=== PATIENT | female | born 1940 | race Caucasian/White ===

== ENCOUNTER → 2018-11-05 09:50 | Outpatient (CLI) | payer MEDICARE, SELFPAY ==
[2017-04-30 08:05] VITALS: BMI 23.0
[2018-11-05 12:01] LABS: Anion Gap 12 (5-15); BUN 17 mg/dL (7-18); Calcium,Total 9.2 mg/dL (8.5-10.1); Chloride 100 mmol/L (98-107); Cholesterol 234 mg/dL (200); Creatinine, Serum 0.89 mg/dL (0.55-1.02); EST Glomerular Filtration Rate 65 mL/min (>60); Est Glom Filt Rate - Afr Amer 78 mL/min (>60); Glucose 169 mg/dL (74-106); High Density Lipoprotein 101 mg/dL; Potassium 4.3 mmol/L (3.5-5.1); Sodium Level 135 mmol/L (136-145); Triglycerides 142 mg/dL; Very Low Density Lipoprotein 28 mg/dL (5-40)
[2018-11-05 12:04] LABS: Microalbumin,Random Urine 8.3 mg/L (NO RANGE EST.); Microalbumin:Creatinine Ratio 47.7 mg/g CRE (<30 mg/g CRE)
[2018-11-05 12:06] LABS: Hemoglobin A1c 6.9 % (4.2-6.3)
[2018-11-05 12:09] LABS: Vitamin D,25 Hydroxy 45.6 ng/mL (29.95-100.01)
== END ==
PROVIDERS: Family Provider Family Medicine; PCP Family Medicine; Visit Provider Family Medicine
DX: E11.9 Type 2 diabetes mellitus without complications (principal); E55.9 Vitamin D deficiency, unspecified
CPT/HCPCS: 36415; 80048; 80061; 82043; 82306; 82570; 83036

== ENCOUNTER → 2019-01-20 09:05 | Outpatient (CLI) | payer MEDICARE, SELFPAY ==
--- NOTE | 2019-01-20 09:11 | BD_ITS ---
STUDY: DUAL ENERGY X-RAY ABSORPTIOMETRY / DXA REASON FOR EXAM: Female, 78 years old. The patient is postmenopausal. No loss of height. TECHNIQUE: Bone Mineral Density (BMD) measurements of lumbar spine and bilateral hips were obtained. COMPARISON: Comparison is made with prior study dated September 08, 2017. FINDINGS: Lumbar Spine (L1-L4): g/cm2 (1.065) / T-score (-1.1) / Z-score (0.7) Findings are suggestive of osteopenia with a low fracture risk. Left Femur Total: g/cm2 (0.781) / T-score (-1.8) / Z-score (0.2) Left Femoral Neck: g/cm2 (0.782) / T-score (-1.8) / Z-score (0.3) Right Femur Total: g/cm2 (0.817) / T-score (-1.5) / Z-score (0.5) Right Femoral Neck: g/cm2 (0.802) / T-score (-1.7) / Z-score (0.4) The T-Scores on the most recent prior examination were: Lumbar Spine (L1-L4): There has been improvement of bone density since the previous examination. Left Femur Total: which represents a worsening of 3.8%. Right Femur Total: which represents a worsening of 0.6%. BD/Dexa Bone Density Study IMPRESSION: The patient is considered osteopenic as outlined below according to World Shawn Organization (WHO) criteria with a moderate fracture risk. There has been worsening of bone density since the previous examination. Reference Information: The T-score is the number of standard deviations above or below the standard which is normal for young adults at their peak bone mineral density. The World Health Organization (WHO) interprets the T-scores as follows: Above -1 Normal bone density Between -1 and -2.5 Osteopenia Equal to / or below -2.5 Osteoporosis As a practical clinical guideline, osteopenia may be graded as follows: Mild -1 through -1.5 Moderate -1.6 through -2.0 Severe -2.1 through -2.4 The Z-score is the number of standard deviations above or below age-matched controls. A Z-score of less than -1.5 would be considered abnormal. References: 1. NIH Osteoporosis and Related Bone Diseases http://www.osteo.org 2. International Society for Clinical Densitometry http://www.iscd.org 3. National Osteoporosis Foundation http://www.nof.org Electronically Signed: Patricio Quarles, at 15:19 EDT , Service support ,
== END ==
PROVIDERS: Family Provider Family Medicine; PCP Family Medicine; Referring Provider Family Medicine; Visit Provider Family Medicine
DX: Z78.0 Asymptomatic menopausal state (principal)
CPT/HCPCS: 77080

== ENCOUNTER → 2019-05-19 10:31 | Outpatient (CLI) | payer MEDICARE, SELFPAY ==
--- NOTE | 2019-05-19 10:33 | BI_ITS ---
MAMMOGRAPHY - BILATERAL SCREENING REASON FOR EXAM: Female, 78 years old. Routine annual screening examination. PERTINENT HISTORY: Non-contributory. History of prior left excisional breast biopsy and right stereotactic breast biopsy. TECHNIQUE: Digital bilateral breast catie (3D mammographic acquisition) in the CC and MLO projections. 2-D mediolateral oblique (MLO) and craniocaudad (CC) views of both breasts were obtained. CAD: Full Field Digital Mammography with Computer Added Detection was performed. COMPARISON: Comparison is made with prior examination dated September 08, 2017 and September 04, 2016. FINDINGS: Breast Composition: The breasts are heterogeneously dense, which may obscure small masses. There are no dominant masses or suspicious calcifications. A tissue clip marker is once again seen in the upper deep lateral aspect of the left breast. No other significant abnormalities are identified. There has been no significant change since the prior study. BI/SCREEN MAMM (CAD) W/CATIE BILAT IMPRESSION: Stable bilateral screening mammogram. Yearly follow-up mammogram recommended. (A) ASSESSMENT CATEGORY: BIRADS Category 2: Benign. A letter regarding these results will be sent to the patient by the facility within 30 days. Approximately 10% of breast cancers are not detected by mammography. A normal mammogram should not delay biopsy of a clinically suspicious abnormality. [id number] Electronically Signed: Patricio Quarles, at 13:20 EDT , Service support ,
== END ==
PROVIDERS: Family Provider Family Medicine; PCP Family Medicine; Referring Provider Family Medicine; Visit Provider Family Medicine
DX: Z12.31 Encounter for screening mammogram for malignant neoplasm of breast (principal)
CPT/HCPCS: 77063; 77067

== ENCOUNTER → 2019-11-08 08:11 | Outpatient (CLI) | payer MEDICARE, SELFPAY ==
[2017-04-30 08:05] VITALS: BMI 23.0
[2019-11-08 10:20] LABS: Anion Gap 6 (5-15); BUN 18 mg/dL (7-18); BUN/Creat Ratio 20.9 RATIO (10-20); Calcium,Total 9.3 mg/dL (8.5-10.1); Chloride 104 mmol/L (98-107); Cholesterol 230 mg/dL (200); Creatinine, Serum 0.86 mg/dL (0.55-1.02); EST Glomerular Filtration Rate 67 mL/min (>60); Est Glom Filt Rate - Afr Amer 81 mL/min (>60); Glucose 144 mg/dL (74-106); High Density Lipoprotein 98 mg/dL; Potassium 4.1 mmol/L (3.5-5.1); Sodium Level 139 mmol/L (136-145); Triglycerides 96 mg/dL; Very Low Density Lipoprotein 19 mg/dL (5-40)
== END ==
PROVIDERS: PCP Family Medicine; Visit Provider Family Medicine
DX: E11.9 Type 2 diabetes mellitus without complications (principal)
CPT/HCPCS: 36415; 80048; 80061

== ENCOUNTER 2019-11-14 18:29 | Emergency (ER) | payer MEDICARE, SELFPAY ==
[2019-11-14 18:30] VITALS: BP 120/53; PULSE 113; RESP 20; TEMP 39.6; O2SAT 95; BMI 23.8
--- NOTE | 2019-11-14 19:12 | ED.VISSUMM ---
- ER Visit Summary Date of Service: 11/14/19 Chief Complaint: Fever and chills with nausea and vomiting History of Present Illness: The patient is a 79 F past medical history noncemented diabetes and hypertension. Patient states for last 2 days she has had fever and chills along with nausea vomiting. No diarrhea. No dysuria. Abdominal pain. No chest pain. No cough. No shortness of breath. No sore throat. No headache. No rashes. Physical Examination: Older female no acute distress vital signs stable her temperature is 103.2. Heart rate 113. Blood pressure stable of 130/53. She does not look septic or toxic. She does not look significantly dehydrated. H EENT exam unremarkable. Give dry reactive light. Moist with membranes. Posterior pharynx normal. TMs normal. Neck nontender no meningismus. No lymphadenopathy. Lungs clear to auscultation bilaterally. Heart tachycardic no murmur. Abdomen soft and nontender normal bowel sounds no peritoneal signs. Extremities moves all 4. Calves nontender no edema no cords. Skin unremarkable. No rashes. No petechiae purpura. Back nontender. Neurologically she is awake alert with no focal motor or sensory deficits. Test Results: X-ray AP lateral view shows no acute abnormality. Both myself and the radiologist. No infiltrate. CBC shows a white count 2.9. H&H 12 and 34. Platelet count 136,000. No bands. Electrolytes sodium 131. Gap of 9. Glucose 193. BUN 28 creatinine 1.47 consistent with mild dehydration. Attempted to get a UA twice and both samples were contaminated with diarrhea. Patient started having diarrhea while in the emergency department. Emergency Department Course and Treatment: Older female with fever clinically I think this is a viral syndrome. Due to her age she will undergo a work-up. She will receive IV fluids. Tylenol and Zofran. P.o. fluid challenge. On repeat exam at 2150 patient is doing well. Abdomen is benign. Her history and exam are consistent with a viral gastroenteritis. She and her are comfortable with her being discharged to home. Treatment Plan: Plenty of fluids and rest. Zofran as needed for nausea. Return if feeling worse or dehydrated. Follow-up with your doctor to ensure she is improving. Disposition: Discharge Impression: Acute nausea and vomiting with fever secondary to viral syndrome entheses viral gastroenteritis) This note was generated with [employer] software. It may contain incorrect words, spelling, and punctuation that were not noted in review of the chart prior to signing ED Disposition - Plan for ED Patient: Referrals: Wilfred Prado MD [Primary Care Provider] -
[2019-11-14 19:43] LABS: Absolute Lymphocyte Count 0.17 X10^3/uL (0.83-4.51); Absolute Neutrophil Count 2.1 X10^3/uL (2.0-7.7); Basophil# 0.01 X10^3/uL; Basophil% 0.3 % (0-1); Eosinophil# 0.51 X10^3/uL; Eosinophils% 17.7 % (0-5); Hematocrit 34.6 % (37-47); Lymphocyte # 0.17 X10^3/ul (4.0); Lymphocyte % 5.9 % (19-41); Mean Corp Hgb Conc 34.7 g/dL (32-36); Mean Corpuscular Hgb 31.6 pg (27.0-32.0); Mean Corpuscular Volume 91.1 fL (81-99); Mean Platelet Vol. 11.3 fl (6.2-12.0); Monocyte# 0.04 X10^3/uL; Monocyte% 1.4 % (0-10); NRBC Flagged by Analyzer 0 % (0-5); Neutrophil # 2.14 X10^3/uL (2.7-7.7); Neutrophil % 74.4 % (47-70); POSITIVE DIFFERENTIAL YES; POSITIVE MORPHOLOGY YES; Platelet Count 136 K/mm3 (150-450); RBC Distribution Width CV 12.8 % (11.6-14.6); RBC Distribution Width SD 42.2 fl (35.1-43.9); White Blood Count 2.9 K/mm3 (4.4-11.0)
[2019-11-14 19:46] LABS: Differential Indicated SCAN CRITERIA MET
[2019-11-14 19:51] LABS: Anion Gap 9 (5-15); BUN 28 mg/dL (7-18); Calcium,Total 9.1 mg/dL (8.5-10.1); Chloride 98 mmol/L (98-107); Creatinine, Serum 1.47 mg/dL (0.55-1.02); EST Glomerular Filtration Rate 36 mL/min (>60); Est Glom Filt Rate - Afr Amer 44 mL/min (>60); Estimated Creatinine Clearance 24.14 ml/min; Glucose 193 mg/dL (74-106); Potassium 3.8 mmol/L (3.5-5.1); Sodium Level 131 mmol/L (136-145)
[2019-11-14] MEDS: 0.9% Normal Saline 1,000 ML 1000 ML IV (20:00)
[2019-11-14] MEDS: Ondansetron 4 MG/2 ML Vial IV (20:01)
[2019-11-14] MEDS: Acetaminophen 500 MG Tablet 1000 MG PO (20:01)
--- NOTE | 2019-11-14 20:08 | RAD_ITS ---
STUDY: X-RAY CHEST REASON FOR EXAM: Female, 79 years old. FEVER AND CHILLS WITH N/V BEGINNING TODAY TECHNIQUE: PA and lateral COMPARISON: None. FINDINGS: There is minor interstitial thickening at the right lung base.. Small calcified granuloma in left upper lobe. There is no demonstrated pleural abnormality. Normal size heart. Normal mediastinum and vee. Normal visualized pulmonary arteries. Normal visualized aortic arch and descending thoracic aorta. Normal visualized thoracic spine. Normal visualized ribs, clavicles, and shoulders. There is no demonstrated abnormality of the visualized soft tissue structures of the upper abdomen. RAD/Chest PA and Lateral IMPRESSION: No acute cardiopulmonary pathology Electronically Signed: Caleb Merino MD at 20:48 EST , Service support ,
[2019-11-14 20:18] LABS: Differential Comment SCANNED
[2019-11-14 20:33] VITALS: BP 94/52; PULSE 92; RESP 18; TEMP 37.4; O2SAT 92
[2019-11-14 21:00] VITALS: BP 94/52; PULSE 92; RESP 18; TEMP 37.4; O2SAT 92
--- NOTE | 2019-11-14 22:05 | ED.DEP ---
ED Disposition - Plan for ED Patient: Disposition: Home or Assisted Living Instructions: GASTROENTERITIS, Viral (6y-Adult) Prescriptions: Ondansetron [Zofran Odt] 4 mg PO Q8H PRN PRN #7 tab PRN Reason: Nausea Prescription Printed Referrals: Wilfred Prado MD [Primary Care Provider] - 3-5 Days if not improving Additional Instructions: Plenty of fluids and rest. Very important to keep yourself hydrated. You are feeling worse or more dehydrated return to the ER. Zofran as needed for nausea. Follow-up with your doctor if not improving.
[2019-11-14 22:20] VITALS: BP 98/42; PULSE 90; RESP 18; O2SAT 96
[2019-11-15 14:41] LABS: Pathologist Review Reviewed
== END 2019-11-14 22:21 | disposition home or self-care (01) ==
PROVIDERS: Emergency Provider Emergency Medicine; PCP Family Medicine
DX: A08.4 Viral intestinal infection, unspecified (principal); E11.9 Type 2 diabetes mellitus without complications; I10 Essential (primary) hypertension
CPT/HCPCS: 71046; 80048; 85025; 99284; J2405

== ENCOUNTER 2019-11-17 19:38 | Inpatient (IN) | payer MEDICARE, SELFPAY ==
[2019-11-17 19:38] VITALS: BP 137/57; PULSE 99; RESP 16; TEMP 37.9; O2SAT 96; BMI 25.6
[2019-11-17 20:59] VITALS: BP 127/51; PULSE 83; RESP 15; TEMP 37.6; O2SAT 98
[2019-11-17 21:06] VITALS: RESP 15; O2SAT 88
--- NOTE | 2019-11-17 21:15 | EKG12_ITS ---
Test Reason : FEVER Blood Pressure : / mmHG Vent. Rate : 079 BPM Atrial Rate : 079 BPM P-R Int : 156 ms QRS Dur : 096 ms QT Int : 356 ms P-R-T Axes : 066 013 065 degrees QTc Int : 408 ms Normal sinus rhythm Normal ECG Confirmed by ANNEL ELDER, JORDANA ([id number]), manuscript editor PAMELA KELSEY ([id number]) on 11/21/2019 9:53:50 AM Referred By: KELLY Confirmed By:JORDANA UP MD
--- NOTE | 2019-11-17 21:20 | RAD_ITS ---
STUDY: X-RAY CHEST REASON FOR EXAM: Female, 79 years old. FEVER STARTING TONIGHT AT DINNER. PT WAS SEEN ON THURSDAY FOR and quot;STOMACH VIRUS and quot; STATES WAS FEELING BETTER AND CHILLS STARTED AGAIN TONIGHT TECHNIQUE: AP portable COMPARISON: November 14, 2019 FINDINGS: The lungs are clear and expanded. There is mild blunting of the right cost phrenic sulcus suspicious for tiny effusion.. Normal size heart. Normal mediastinum and vee. Normal visualized pulmonary arteries. Normal visualized aortic arch and descending thoracic aorta. Normal visualized thoracic spine. Normal visualized ribs, clavicles, and shoulders. There is no demonstrated abnormality of the visualized soft tissue structures of the upper abdomen. The blunting of the costophrenic angle is a new finding since our study. RAD/Chest 1 View (Portable) IMPRESSION: New tiny right pleural effusion since prior exam. No other significant abnormalities. Electronically Signed: Caleb Merino MD at 21:38 EST , Service support ,
[2019-11-17 21:37] LABS: Absolute Lymphocyte Count 0.53 X10^3/uL (0.83-4.51); Basophil# 0.07 X10^3/uL; Basophil% 0.5 % (0-1); Eosinophil# 0.01 X10^3/uL; Eosinophils% 0.1 % (0-5); Hematocrit 33.7 % (37-47); Hemoglobin 11.6 g/dL (12.0-15.0); Lymphocyte # 0.53 X10^3/ul (4.0); Lymphocyte % 3.9 % (19-41); Mean Corp Hgb Conc 34.4 g/dL (32-36); Mean Corpuscular Hgb 31.3 pg (27.0-32.0); Mean Corpuscular Volume 90.8 fL (81-99); Mean Platelet Vol. 10.4 fl (6.2-12.0); Monocyte# 1.73 X10^3/uL; Monocyte% 12.6 % (0-10); NRBC Flagged by Analyzer 0 % (0-5); Neutrophil # 11.04 X10^3/uL (2.7-7.7); Neutrophil % 80.6 % (47-70); POSITIVE DIFFERENTIAL YES; POSITIVE MORPHOLOGY YES; Platelet Count 190 K/mm3 (150-450); RBC Distribution Width CV 13.1 % (11.6-14.6); RBC Distribution Width SD 43.4 fl (35.1-43.9); Red Blood Count 3.71 M/mm3 (4.2-5.4); White Blood Count 13.7 K/mm3 (4.4-11.0)
[2019-11-17 21:50] LABS: Differential Indicated SCAN CRITERIA MET
[2019-11-17 21:59] LABS: ALB/GLOB Ratio 0.7 RATIO (0.9-2.4); AST(SGOT) 20 U/L (15-37); Alanine Aminotransfer ALT/SGPT 45 U/L (13-56); Albumin, Serum 2.6 g/dL (3.2-5.0); Alkaline Phosphatase 102 U/L (45-117); Anion Gap 7 (5-15); BUN 22 mg/dL (7-18); BUN/Creat Ratio 17.9 RATIO (10-20); Calcium,Total 8.8 mg/dL (8.5-10.1); Chloride 98 mmol/L (98-107); Creatinine, Serum 1.23 mg/dL (0.55-1.02); EST Glomerular Filtration Rate 45 mL/min (>60); Est Glom Filt Rate - Afr Amer 54 mL/min (>60); Estimated Creatinine Clearance 28.85 ml/min; Globulin 3.5 g/dL (2.2-4.2); Glucose 178 mg/dL (74-106); Potassium 3.9 mmol/L (3.5-5.1); Protein, Total 6.1 g/dL (6.4-8.2); Sodium Level 133 mmol/L (136-145)
[2019-11-17 22:10] LABS: Differential Comment SCANNED
[2019-11-17 22:11] LABS: Mucous, Urine 0 SEEN /hpf (<or=2+)
[2019-11-17] MEDS: Acetaminophen 500 MG Tablet 1000 MG PO (22:11)
[2019-11-17 22:14] LABS: Color, Urine Yellow (Yellow); Glucose, Dipstick Normal (Normal); Ketone-Dipstick 5 mg/dl (Negative); Leukocyte Esterase-Dipstick 500 /ul (Negative); Nitrite-Dipstick Positive (Negative); Occult Blood-Urine 150 /ul (Negative); Protein-Dipstick 100 mg/dl (Negative); Urine Bilirubin Dipstick Negative (Negative); Urine Clarity Cloudy (Clear); Urine Urobilinogen Normal (Normal)
[2019-11-17 22:20] LABS: Amorphous Sediment 1+ URATE; Bacteria 1+ /hpf (None Seen); Red Blood Cells-Urine 10-25 SEEN /hpf (0-5); Squamous Epithelial Cells - UA 0-5 SEEN /hpf (5-10); White Blood Cells >100 SEEN /hpf (0-5)
[2019-11-17 22:40] VITALS: BP 110/58; PULSE 74; RESP 16; TEMP 36.9; O2SAT 99
[2019-11-17 23:30] VITALS: BP 110/58; PULSE 74; PULSE 75; RESP 15; TEMP 37; O2SAT 98
--- NOTE | 2019-11-17 23:31 | CT_ITS ---
STUDY: CTA CHEST REASON FOR EXAM: Female, 79 years old. SHORTNESS OF BREATH, FEVER, LOW O2 SATS. RADIATION DOSAGE (If Supplied By Facility): CTDIvol = ( 8.98 ) mGy, DLP = ( 350.25 ) mGycm TECHNIQUE: The examination was performed with the intravenous administration of IV 100mL Isovue-370. Post-processing of the angiographic images was performed, with multiplanar reformation and 3D reconstruction. Individualized dose optimization techniques were used for this CT. COMPARISON: None. FINDINGS: TRACHEA, THYROID, ESOPHAGUS: No tracheomalacia,stricture or wall thickening. Thyroid and esophagus are normal CARDIOVASCULAR SYSTEM: The thoracic aorta is normal with no focal aneurysm or dissection. There are no abnormal calcifications/metallic densities at the aortic root. The pulmonary trunk and the left and right pulmonary arteries and their lobar and segmental branches all fail to show any abnormal and persistent filling defects to indicate the presence of pulmonary embolism. The heart is normal in size with no demonstration of any right ventricular strain. No developmental vascular anomalies are seen. ROXY AND LYMPH NODES: No hilar masses and no mediastinal, hilar, axillary or supraclavicular adenopathy LUNGS, LOW-ATTENUATION: No traction bronchiectasis, honeycombing,emphysema, lung cysts or cavitations LUNGS, HIGH ATTENUATION: Right lower lobe consolidation. Pneumonia suspected. Platelike atelectatic changes in the left base. LUNGS, MOSAIC/CRAZY PAVING: Not evident PLEURA AND CHEST WALL: No pneumothoraces,rib fractures or any osteolytic/osteoblastic changes . A small right-sided pleural effusion The soft tissue chest wall including the breasts are normal UPPER ABDOMEN: A 5.7 cm left renal cyst. CT/CTA Chest W/WO Contrast IMPRESSION: Normal CTA chest examination, without a demonstrated pulmonary embolism or arterial dissection. A right lower lobe consolidation consistent with pneumonia. There is a small sympathetic right-sided pleural effusion. Platelike atelectatic changes in the left base. A 5.7 cm left renal cyst Electronically Signed: Olman Zayas MD at 2:49 EST Tel , Service support ,
--- NOTE | 2019-11-17 23:33 | ED.VISSUMM ---
- ER Visit Summary Date of Service: 11/17/19 Chief Complaint: Fever History of Present Illness: The patient is a 79 F presenting with fever and chills. She states her symptoms started on Thursday. She was seen in the ED at that time. She had a work-up and was sent home. States she started to feel improved and then started to worsen again today. She has had temperature up to 103 at home. She complains of chills. She had rhinorrhea. She has had shortness of breath. She denies cough. Denies chest pain. Denies abdominal pain, nausea, vomiting, diarrhea. She does have constipation but did have a bowel movement today. She complains of generalized fatigue and weakness. Physical Examination: Vitals are stable. Temperature 100.3. Alert no acute distress. 88% on room air HEENT exam is unremarkable. Neck is supple. Lungs are diminished bilaterally. Heart is regular rate and rhythm. Abdomen is soft nontender nondistended. Extremities are unremarkable. Skin is warm and dry. No focal neurologic deficit. Remainder of exam is unremarkable. Emergency Department Course and Treatment: EKG is sinus rhythm rate of 79 with no acute ischemic changes. Chest x-ray shows tiny right pleural effusion. CBC shows white count 13.7, hemoglobin 11.6. Chemistries show glucose 178, BUN 22, creatinine 1.23. Urinalysis shows over 100 white blood cells. Urine culture was sent. Influenza negative. She was given IV fluids, Tylenol, Rocephin. Her pulse ox is 88% on room air when taken off oxygen. She does not have home O2. Discussed with the hospitalist for admission. CTA chest was requested and is pending at this time. Disposition: Admission Impression: UTI, hypoxia This note was generated with [employer] dictation software. It may contain incorrect words, spelling, and punctuation that were not noted in review of the chart prior to signing ED Disposition - Plan for ED Patient: Referrals: Wilfred Prado MD [Primary Care Provider] -
[2019-11-17] MEDS: Ceftriaxone 1 GM/50 ML BAG IV (23:41)
[2019-11-17 23:42] VITALS: BP 114/57; PULSE 76; RESP 16; TEMP 37; O2SAT 97
[2019-11-17 23:59] LABS: BNP,B-Type NATRIURETIC PEPTIDE 303.9 pg/mL (0-100)
--- NOTE | 2019-11-18 00:19 | HP.PCM_ITS ---
History of Present Illness Date of Admission: 11/18/19 Chief Complaint: fever The patient is a 79 year old F with a PMH as outlined. She was admitted via the ED on 11/17/2019 with a complaint of fever. She was seen in the ED 3 days prior to admission when she presented with similar complaint of fever. She says she started improving. Work-up done then was negative. However a temperature went up to 103 at home on day of admission with associated chills. She says she had been feeling more short of breath since she went home from the hospital 3 days prior to admission she denied any cough or chest pain, palpitations or dizziness, nausea vomiting or diarrhea and denied any swelling in her lower extremities. He denies any recent long distance travel. On admission in the ED, vitals were essentially stable but she was initially saturating at 88% on room air and required 2 L of oxygen to maintain saturation at 97%. Chemistry showed sodium of 133 with creatinine of 1.23. BNP was 303.9. CBC showed WBC of 13.7 with hemoglobin of 11.6. Chest x-ray showed new tiny right pleural effusion since prior exam with no other significant abnormalities. Initial troponin was negative and EKG showed no acute ST changes. Urinalysis showed evidence of UTI . Chest CTA was ordered and pending at time of admission. She has been admitted to be managed for UTI. [] Past Medical History Allergies No Known Allergies Allergy (Verified 11/17/19 19:40) Home Medications: Ambulatory Orders Medication Instructions Recorded Diclofenac Sodium [Voltaren] 1 oint TOPICAL PRN PRN 04/18/14 Metformin HCl [Metformin HCl ER] 500 mg PO DAILY 04/18/14 Moexipril/Hydrochlorothiazide 1 tab PO DAILY 04/18/14 [Moexipril-Hctz 15-12.5 mg Tab] Amlodipine [Norvasc] 10 mg PO DAILY 04/30/17 Ezetimibe [Zetia] 10 mg PO QHS 04/30/17 Calcium Carbonate/Vitamin D3 1 ea PO DAILY 11/14/19 [Calcium 500-Vit D3 600 Caplet] Cholecalciferol (VIT D3) [Vitamin 1,000 unit PO DAILY 11/14/19 D] Flaxseed Oil [Flax Oil] 1,000 mg PO DAILY 11/14/19 Ondansetron [Zofran Odt] 4 mg PO Q8H PRN PRN #7 tab 11/14/19 Surgical History: no surgical history Psychiatric History: No pertinent psych hx 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 Denies: Weight Change Eyes: Denies: Blurred vision HEENT: Denies: Head Aches, Sinus Congestion, Sinus Drainage Cardiovascular: Denies: Chest Pain, Palpitations Respiratory: Reports: Shortness of Breath, Shortness of breath at rest, Shortness of breath upon exertion. Denies: Cough, Sputum production Gastrointestinal: Denies: Abdominal Pain, Nausea, Vomiting Genitourinary: Denies: Dysuria Musculoskeletal: Denies: Joint Pain, Joint Tenderness Skin: Denies: Rash, Wounds Neurological: Denies: Numbness, Tingling, Focal weakness Psychiatric: Denies: Anxiety, Depression, Homicidal Ideations, Suicidal Ideations Hematologic/ Lymphatic: Denies: Easy Bruising, Easy Bleeding VTE Information - Inpt Only VTE Present on Admission: No VTE Pharm Prophylaxis ordered?: Yes - Physical Exam Vitals/I&O's: Vital Signs Temp Pulse Resp BP Pulse Ox 98.6 F 76 16 114/57 L 97 11/17/19 23:42 11/17/19 23:42 11/17/19 23:42 11/17/19 23:42 11/17/19 23:42 Oxygen Delivery Method Room Air Weight: 140 lb Body Mass Index (BMI) 25.6 Intake and Output for Last 24 Hours 11/16/19 11/17/19 11/18/19 23:59 23:59 23:59 Intake Total 500 / 500 Balance 500 / 500 General: Alert, Oriented x3, Cooperative, No apparent distress HEENT: Atraumatic, PERRLA, EOMI, Normocephalic Oral: Dry Mucosa Neck: Supple, No JVD, Negative Carotid Bruits Lungs: Clear to auscultation, Normal air movement, No rhonchi, No wheeze, No rales Cardiovascular: Regular rate, Regular Rhythm, Normal S1, Normal S2, No murmurs Abdomen: Bowel Sounds Present, Soft, Non Tender, Non-Distended, No Hepato- splenomegaly Extremities: No clubbing, No cyanosis, No edema, Capillary Refill Less than 3 Seconds Skin: No rashes, No breakdown Musculoskeletal: No Tenderness to Palpation of Joints or Extremities Lymphatic: No Cervical, Supraclavicular, or Inguinal Adenopathy Neurological: Cranial nerves II-XII grossly intact, Neuro grossly intact, Motor Exam 5/5 strength throughout Psych/Mental Status: Normal Affect, Appropriate, Alert and oriented to time, place, person, mood and affect Microbiology Past 72 Hours 11/17/19 21:44 Mucosa - Nose Influenza Types A,B Direct FA (SUSAN) - Final Laboratory Results 11/17/19 21:30: WBC 13.7 H, RBC 3.71 L, Hgb 11.6 L, Hct 33.7 L, MCV 90.8, MCH 31.3, MCHC 34.4, RDW Std Deviation 43.4, RDW Coeff of Santana 13.1, Plt Count 190, MPV 10.4, Immature Gran % (Auto) 2.300 H, Neut % (Auto) 80.6 H, Lymph % (Auto) 3.9 L, [place] % (Auto) 12.6 H, Eos % (Auto) 0.1, Baso % (Auto) 0.5, Absolute Neuts (auto) 11.0 H, Absolute Lymphs (auto) 0.53 L, Nucleated RBC % 0, Differential Comment SCANNED, Diff Path Review January11/17/19 21:30: Sodium 133 L, Potassium 3.9, Chloride 98, Carbon Dioxide 28.0, Anion Gap 7, BUN 22 H, Creatinine 1.23 H, Estim Creat Clear Calc 28.85, Est GFR (MDRD) Af Amer 54 L, Est GFR (MDRD) Non-Af 45 L, BUN/Creatinine Ratio 17.9, Glucose 178 H, Calcium 8.8, Total Bilirubin 0.30, AST 20, ALT 45, Alkaline Phosphatase 102, Total Protein 6.1 L, Albumin 2.6 L, Globulin 3.5, Albumin/Globulin Ratio 0.7 L 11/17/19 21:30: B-Natriuretic Peptide 303.9 H 11/17/19 22:07: Urine Color Yellow, Urine Clarity Cloudy, Urine pH 5.0, Ur Specific Mineral 1.010, Urine Protein 100 H, Urine Glucose (UA) Normal, Urine Ketones 5 H, Urine Occult Blood 150 H, Urine Nitrite Positive H, Urine Bilirubin Negative, Urine Urobilinogen Normal, Ur Leukocyte Esterase 500 H, Urine RBC 10- 25 SEEN, Urine WBC >100 SEEN, Ur Squamous Epith Cells 0-5 SEEN, Amorphous Sediment 1+ URATE, Urine Bacteria 1+, Urine Mucus 0 SEEN Diagnostic Data Chest X-Ray 11/17/19 21:20 IMPRESSION: New tiny right pleural effusion since prior exam. No other significant abnormalities. Electronically Signed: Caleb Merino MD at 21:38 EST , Service support , Assessment/Plan 79 y/o female admitted with a complaint of fever. 1. UTI * admit to med surg with telemetry * wbc is 13.7,and temperature was 100.3F on admission * UA showed bacteria of 1+ and wbc >100 * urine cultures ordered * being hydrated with IVF NS, will dc as BNP is 303 * 2. Community acquired pneumonia * CXR showed small left pleural effusion * CTA showed evidence of right lower lobe infiltrate, per my independent review. Official reading showed right lower lobe consolidation consistent with pneumonia and small sympathetic right sided pleural effusion. * will check urine for strep and legionella, respiratory panel * sputum culture; start IV ceftriaxone and IV azithromycin * 3. Elevated Cr: Cr is 1.23. Baseline is 0.86 4.Hyponatremia: Na is 133. Will hydrate and monitor. 5. Hypertension: on amlodipine, moexipril/HCTZ 6. Hyperlipidemia: on ezetimibe. DVT prophylaxis: lovenox Code Visit OBSV E&M: 25080 Initial observation care L2
[2019-11-18 01:20] VITALS: BMI 24.9
[2019-11-18 01:22] VITALS: BMI 24.0
[2019-11-18 01:50] VITALS: BP 148/61; PULSE 79; RESP 97; TEMP 36.8; O2SAT 20
[2019-11-18 02:15] LABS: Bedside Glucose 166 mg/dL (70-110)
[2019-11-18 05:12] LABS: Hematocrit 31.8 % (37-47); Mean Corp Hgb Conc 34.6 g/dL (32-36); Mean Corpuscular Volume 89.6 fL (81-99); Mean Platelet Vol. 10.3 fl (6.2-12.0); POSITIVE COUNT YES; POSITIVE DIFFERENTIAL YES; POSITIVE MORPHOLOGY YES; Platelet Count 169 K/mm3 (150-450); RBC Distribution Width CV 13.1 % (11.6-14.6); RBC Distribution Width SD 43.3 fl (35.1-43.9); Red Blood Count 3.55 M/mm3 (4.2-5.4); White Blood Count 9.3 K/mm3 (4.4-11.0)
[2019-11-18 05:13] LABS: Differential Indicated MANUAL DIFF
[2019-11-18 05:20] VITALS: PULSE 81
[2019-11-18 05:31] LABS: Lymphocyte 4 % (19-41); Monocyte 8 % (0-10); Neutrophil-Band 13 % (0-5); Neutrophil-Segmented 75 % (47-70); Total Cells Counted 100 (MANUAL DIFF)
[2019-11-18 05:32] LABS: Hypochromasia 1+; Platelet Estimate ADEQUATE (ADEQ); Red Cell Morphology N CYTIC NORMAL (NORM C&C)
[2019-11-18 05:33] LABS: Absolute Lymphocyte Count 0.37 X10^3/uL (0.83-4.51); Absolute Neutrophil Count 8.2 X10^3/uL (2.0-7.7); Lymphocyte # 0.37 X10^3/ul (4.0); Monocyte# 0.74 X10^3/uL; Neutrophil # 8.15 X10^3/uL (2.7-7.7)
[2019-11-18 05:34] LABS: Anion Gap 7 (5-15); BUN 20 mg/dL (7-18); BUN/Creat Ratio 15.7 RATIO (10-20); Calcium,Total 8.2 mg/dL (8.5-10.1); Chloride 100 mmol/L (98-107); Creatinine, Serum 1.27 mg/dL (0.55-1.02); EST Glomerular Filtration Rate 43 mL/min (>60); Est Glom Filt Rate - Afr Amer 52 mL/min (>60); Estimated Creatinine Clearance 29.23 ml/min; Glucose 133 mg/dL (74-106); Potassium 3.4 mmol/L (3.5-5.1); Sodium Level 135 mmol/L (136-145)
--- NOTE | 2019-11-18 05:55 | ECHOD_ITS ---
Reason For Study: SOB Procedure This was a 2D Doppler, Color Flow transthoracic echocardiogram. Exam performed portable in patient room. Left Ventricle Normal LV size. The estimated ejection fraction is 65 %. Unable to assess diastolic dysfunction. No regional wall motion abnormalities noted. Right Ventricle Normal RV size. Normal systolic function. Atria The left atrium is mildly enlarged. Normal right atrium. No doppler evidence for ASD. Mitral Valve There is moderate mitral annular calcification. Moderate focal mitral valve calcification, bileaflet. Moderate mitral valve stenosis. No mitral valve insufficiency. Tricuspid Valve There is no tricuspid stenosis. Trivial tricuspid valve insufficiency. Pulmonary artery systolic pressure is 45 mmHg. Aortic Valve Aortic sclerosis, no stenosis. There is no aortic stenosis. No aortic valve insufficiency. Pulmonic Valve There is no pulmonic valvular stenosis. No pulmonic valve insufficiency. Great Vessels Normal aortic root. Pericardium/Pleural No pericardial effusion. MMode/2D Measurements & Calculations LVIDd: 3.7 cm IVSd: 0.98 cm LVOT diam: 1.9 cm LVIDs: 2.6 cm LVPWd: 0.93 cm LVOT area: 2.8 cm2 RVDd: 3.2 cm FS: 29.8 % MVA(traced): 1.7 cm2 Ao root diam: 3.0 cm LAV(MOD-bp): 49.1 ml LAV(MOD-bp) Indexed: 29.5 ml/m2 LAV(MOD-sp2): 46.5 ml LAV(MOD-sp4): 44.4 ml LA dimension(2D): 3.7 cm LA A4 area: 15.5 cm2 RA A4 area: 10.7 cm2 Doppler Measurements & Calculations MV V2 max: 222.3 cm/sec Ao V2 max: 171.3 cm/sec LV V1 max: 153.9 cm/sec MV max P.8 mmHg Ao max P.7 mmHg LV V1 max P.5 mmHg MV V2 mean: 144.8 cm/sec Ao V2 mean: 110.0 cm/sec LV V1 mean P.3 mmHg MV mean P.1 mmHg Ao mean P.5 mmHg LV V1 mean: 109.4 cm/sec MV V2 VTI: 51.5 cm Ao V2 VTI: 31.3 cm LV V1 VTI: 31.1 cm MVA(VTI): 1.7 cm2 KARRIE(I,D): 2.8 cm2 KARRIE(V,D): 2.5 cm2 SV(LVOT): 87.2 ml TR max adry: 311.2 cm/sec MV P1/2t-pr_phl: 64.5 msec TR max P.8 mmHg Interpretation Summary The estimated ejection fraction is 65 %. Unable to assess diastolic dysfunction. There is moderate mitral annular calcification. Moderate focal mitral valve calcification, bileaflet. Moderate mitral valve stenosis. Ordering Physician: Columba Falk Referring Physician: JORDANA REESE Performed By: Rahel Vergara, RDCS, RVT
[2019-11-18] MEDS: Enoxaparin 30 MG/0.3 ML Syringe SC (06:35)
[2019-11-18 06:40] LABS: Bedside Glucose 147 mg/dL (70-110)
[2019-11-18 07:51] VITALS: BP 101/55; PULSE 98; RESP 18; TEMP 36.9; O2SAT 98
--- NOTE | 2019-11-18 08:22 | PCM.PN.HOSP ---
Reason for Visit: Fever, bronchitis. Objective: No fever or chills while in the hospital. Triage temperature 100.3 ?F. Admitted with fever, T 103 Fahrenheit at home with chills, febrile for 3 days at home. Mild shortness of breath but denies dizziness, nausea, vomiting, cough or chest pain. Currently is saturating 98% on room air. BNP 303. Mild leukocytosis 13 .7K. Patient also gained 10 pounds in last 1 week. No significant ankle edema. Has chronic hemorrhoids. Vitals/I&O's: Vital Signs Temp Pulse Resp BP Pulse Ox 98.4 F 98 18 101/55 L 98 11/18/19 07:51 11/18/19 07:51 11/18/19 07:51 11/18/19 07:51 11/18/19 07:51 Oxygen Flow Rate (L/min) 2 Oxygen Delivery Method Room Air Weight: 140 lb 10.479 oz Body Mass Index (BMI) 24.9 Intake and Output for Last 24 Hours 11/16/19 11/17/19 11/18/19 23:59 23:59 23:59 Intake Total 500 / 500 350 / 350 Output Total 400 / 400 Balance 500 / 500 -50 / -50 General: Alert, Oriented x3, Cooperative HEENT: Atraumatic, PERRLA, EOMI, Normocephalic Neck: Supple, No JVD, Negative Carotid Bruits Lungs: Clear to auscultation, No rhonchi, No wheeze, No rales, Diminished Cardiovascular: Regular rate, Regular Rhythm, Normal S1, Normal S2, No murmurs Abdomen: Bowel Sounds Present, Soft, Non Tender, Non-Distended, - - On rectal exam in the present of the nurse Patient has external hemorrhoids. Nontender. No fissure observed. On digital exam, no anal mass palpable Extremities: No edema, Capillary Refill Less than 3 Seconds Skin: No rashes, No breakdown Musculoskeletal: No Tenderness to Palpation of Joints or Extremities, Arthritic Changes Neurological: Cranial nerves II-XII grossly intact Psych/Mental Status: Normal Affect, Appropriate Microbiology Past 72 Hours 11/17/19 21:44 Mucosa - Nose Influenza Types A,B Direct FA (SUSAN) - Final Laboratory Results 11/17/19 21:30: WBC 13.7 H, RBC 3.71 L, Hgb 11.6 L, Hct 33.7 L, MCV 90.8, MCH 31.3, MCHC 34.4, RDW Std Deviation 43.4, RDW Coeff of Santana 13.1, Plt Count 190, MPV 10.4, Immature Gran % (Auto) 2.300 H, Neut % (Auto) 80.6 H, Lymph % (Auto) 3.9 L, [place] % (Auto) 12.6 H, Eos % (Auto) 0.1, Baso % (Auto) 0.5, Absolute Neuts (auto) 11.0 H, Absolute Lymphs (auto) 0.53 L, Nucleated RBC % 0, Differential Comment SCANNED, Diff Path Review January11/17/19 21:30: Sodium 133 L, Potassium 3.9, Chloride 98, Carbon Dioxide 28.0, Anion Gap 7, BUN 22 H, Creatinine 1.23 H, Estim Creat Clear Calc 28.85, Est GFR (MDRD) Af Amer 54 L, Est GFR (MDRD) Non-Af 45 L, BUN/Creatinine Ratio 17.9, Glucose 178 H, Calcium 8.8, Total Bilirubin 0.30, AST 20, ALT 45, Alkaline Phosphatase 102, Total Protein 6.1 L, Albumin 2.6 L, Globulin 3.5, Albumin/Globulin Ratio 0.7 L 11/17/19 21:30: B-Natriuretic Peptide 303.9 H 11/17/19 22:07: Urine Color Yellow, Urine Clarity Cloudy, Urine pH 5.0, Ur Specific Steinauer 1.010, Urine Protein 100 H, Urine Glucose (UA) Normal, Urine Ketones 5 H, Urine Occult Blood 150 H, Urine Nitrite Positive H, Urine Bilirubin Negative, Urine Urobilinogen Normal, Ur Leukocyte Esterase 500 H, Urine RBC 10-25 SEEN, Urine WBC >100 SEEN, Ur Squamous Epith Cells 0-5 SEEN, Amorphous Sediment 1+ URATE, Urine Bacteria 1+, Urine Mucus 0 SEEN 11/18/19 02:09: POC Glucose 166 H 11/18/19 05:00: WBC 9.3, RBC 3.55 L, Hgb 11.0 L, Hct 31.8 L, MCV 89.6, MCH 31.0, MCHC 34.6, RDW Std Deviation 43.3, RDW Coeff of Santana 13.1, Plt Count 169, MPV 10.3, Neut % (Auto) Not Reportable, Absolute Neuts (auto) 8.2 H, Absolute Lymphs (auto) 0.37 L, Total Counted 100, Neutrophils % (Manual) 75 H, Band Neutrophils % 13 H, Lymphocytes % (Manual) 4 L, Monocytes % (Manual) 8, Diff Path Review January, Platelet Estimate ADEQUATE, RBC Morphology N CYTIC, Hypochromasia 1+ 11/18/19 05:00: Sodium 135 L, Potassium 3.4 L, Chloride 100, Carbon Dioxide 28.0, Anion Gap 7, BUN 20 H, Creatinine 1.27 H, Estim Creat Clear Calc 29.23, Est GFR (MDRD) Af Amer 52 L, Est GFR (MDRD) Non-Af 43 L, BUN/Creatinine Ratio 15.7, Glucose 133 H, Calcium 8.2 L 11/18/19 06:33: POC Glucose 147 H Current Medications Acetaminophen (Tylenol) 650 mg PO Q6H PRN PRN PRN Reason: Pain Score 1-10/Temp > 100.7 F Amlodipine Besylate (Norvasc) 10 mg PO DAILY COUNTS INCLUDE 234 BEDS AT THE [facility] Calcium/Vitamin D (Os-Stu 500mg + D) 1 tablet PO DAILY COUNTS INCLUDE 234 BEDS AT THE [facility] Cholecalciferol (Vitamin D (25mcg)) 1,000 unit PO DAILY COUNTS INCLUDE 234 BEDS AT THE [facility] Ezetimibe (Zetia) 10 mg PO QHS COUNTS INCLUDE 234 BEDS AT THE [facility] Enoxaparin Sodium (Lovenox) 30 mg SC DAILY@0600 COUNTS [facility]CLUDE 234 BEDS AT THE [facility] Last Admin: 11/18/19 06:35 Dose: 30 mg Documented by: Glucagon () 1 mg IM .X1 PRN PRN Reason: Hypoglycemia Hydrochlorothiazide () 12.5 mg PO DAILY COUNTS INCLUDE 234 BEDS AT THE [facility] Sodium Chloride () 250 mls @ 15 mls/hr IV .[id number] PRN PRN Reason: Saline Flush Sodium Chloride () 250 mls @ 15 mls/hr IV .[id number] PRN PRN Reason: Additional IVPB Infusion Azithromycin 500 mg/ Dextrose 255 mls @ 250 mls/hr IV Q24 COUNTS INCLUDE 234 BEDS AT THE [facility] Ceftriaxone Sodium (Rocephin) 1 gm in 50 mls @ 100 mls/hr IV QHS COUNTS INCLUDE 234 BEDS AT THE [facility] Dextrose (Dextrose 10%-Water) 250 mls @ 999 mls/hr IV .Q16M PRN; Protocol PRN Reason: HYPOGLYCEMIA Insulin Human Lispro (Humalog Kwikpen (Bkc)) 0 unit SC ACHS COUNTS INCLUDE 234 BEDS AT THE [facility]; Protocol Last Admin: 11/18/19 06:35 Dose: Not Given Documented by: Lisinopril (Zestril) 20 mg PO DAILY COUNTS INCLUDE 234 BEDS AT THE [facility] Met[facility]) [facility] Non-Formulary Medication (Diclofenac Sodium [Voltaren]) 1 oint TOPICAL PRN PRN PRN Reason: P Ondansetron HCl (Zofran Odt) 4 mg PO Q8H PRN PRN PRN Reason: NAUSEA Ondansetron HCl (Zofran) 4 mg IV Q8H PRN PRN PRN Reason: NAUSEA/VOMITING Sodium Chloride () 10 - 40 ml IV UD PRN PRN Reason: SALINE FLUSH STROKE Vital Signs/Narrative: Vital Signs Temp Pulse Resp BP Pulse Ox 11/18/19 07:51 98.4 F 98 18 101/55 L 98 11/18/19 05:20 81 Medical Necessity - Tobacco Use Smoking Status: Former smoker Tobacco Use: Non-smoker Assessment/Plan This is 79 y/o female admitted with a complaint of fever. 1. UTI: Empirically on IV Rocephin. Mild leukocytosis. UA positive of 1+ bacteria and WBC more than 100 cells. Urine culture pending. DC IV fluid. 2. Community acquired pneumonia: CXR showed small left pleural effusion CTA showed evidence of right lower lobe infiltrate. CT chest reported right lower lobe consolidation consistent with pneumonia and small sympathetic right sided pleural effusion. Urinary antigens, sputum culture and respiratory panel ordered. Continue IV ceftriaxone and IV azithromycin 3. Elevated BNP at 303: 2D echo done. Discontinue IV fluid 4. PAUL, exact etiology unclear: Patient creatinine was normal in October 2019. On 11/14 1.47. This time admitting BUN 22/1.23, not much decrease with IV fluid 5 Hyponatremia: Na is 133. Repeat sodium 134. 6. Chronic hemorrhoids, stage III: Anusol rectal cream ordered. . Hypertension: on amlodipine, moexipril/HCTZ . Hyperlipidemia: on ezetimibe. DVT prophylaxis: lovenox Microbiology Past 72 Hours 11/17/19 21:44 Mucosa - Nose Influenza Types A,B Direct FA (SUSAN) - Final Laboratory Results 11/17/19 21:30: WBC 13.7 H, RBC 3.71 L, Hgb 11.6 L, Hct 33.7 L, MCV 90.8, MCH 31.3, MCHC 34.4, RDW Std Deviation 43.4, RDW Coeff of Santana 13.1, Plt Count 190, MPV 10.4, Immature Gran % (Auto) 2.300 H, Neut % (Auto) 80.6 H, Lymph % (Auto) 3.9 L, [place] % (Auto) 12.6 H, Eos % (Auto) 0.1, Baso % (Auto) 0.5, Absolute Neuts (auto) 11.0 H, Absolute Lymphs (auto) 0.53 L, Nucleated RBC % 0, Differential Comment SCANNED, Diff Path Review Reviewed 11/17/19 21:30: Sodium 133 L, Potassium 3.9, Chloride 98, Carbon Dioxide 28.0, Anion Gap 7, BUN 22 H, Creatinine 1.23 H, Estim Creat Clear Calc 28.85, Est GFR (MDRD) Af Amer 54 L, Est GFR (MDRD) Non-Af 45 L, BUN/Creatinine Ratio 17.9, Glucose 178 H, Calcium 8.8, Total Bilirubin 0.30, AST 20, ALT 45, Alkaline Phosphatase 102, Total Protein 6.1 L, Albumin 2.6 L, Globulin 3.5, Albumin/Globulin Ratio 0.7 L 11/17/19 21:30: B-Natriuretic Peptide 303.9 H 11/17/19 22:07: Urine Color Yellow, Urine Clarity Cloudy, Urine pH 5.0, Ur Specific Steinauer 1.010, Urine Protein 100 H, Urine Glucose (UA) Normal, Urine Ketones 5 H, Urine Occult Blood 150 H, Urine Nitrite Positive H, Urine Bilirubin Negative, Urine Urobilinogen Normal, Ur Leukocyte Esterase 500 H, Urine RBC 10-25 SEEN, Urine WBC >100 SEEN, Ur Squamous Epith Cells 0-5 SEEN, Amorphous Sediment 1+ URATE, Urine Bacteria 1+, Urine Mucus 0 SEEN 11/18/19 02:09: POC Glucose 166 H 11/18/19 05:00: WBC 9.3, RBC 3.55 L, Hgb 11.0 L, Hct 31.8 L, MCV 89.6, MCH 31.0, MCHC 34.6, RDW Std Deviation 43.3, RDW Coeff of Santana 13.1, Plt Count 169, MPV 10.3, Neut % (Auto) Not Reportable, Absolute Neuts (auto) 8.2 H, Absolute Lymphs (auto) 0.37 L, Total Counted 100, Neutrophils % (Manual) 75 H, Band Neutrophils % 13 H, Lymphocytes % (Manual) 4 L, Monocytes % (Manual) 8, Diff Path Review January, Platelet Estimate ADEQUATE, RBC Morphology N CYTIC, Hypochromasia 1+ 11/18/19 05:00: Sodium 135 L, Potassium 3.4 L, Chloride 100, Carbon Dioxide 28.0, Anion Gap 7, BUN 20 H, Creatinine 1.27 H, Estim Creat Clear Calc 29.23, Est GFR (MDRD) Af Amer 52 L, Est GFR (MDRD) Non-Af 43 L, BUN/Creatinine Ratio 15.7, Glucose 133 H, Calcium 8.2 L 11/18/19 06:33: POC Glucose 147 H
[2019-11-18] MEDS: Calcium Carb/Vitamin D 1 TABLET Tablet PO (08:54)
[2019-11-18] MEDS: metFORMIN (XR) 500 MG Tablet PO (08:55)
[2019-11-18 09:17] VITALS: PULSE 75
[2019-11-18] MEDS: 0.9% Saline Lock 10 ML Syringe IV (09:36)
[2019-11-18 10:37] LABS: Pathologist Review Reviewed
[2019-11-18 11:40] LABS: Bedside Glucose 285 mg/dL (70-110)
[2019-11-18] MEDS: Hydrocortisone 25 MG Suppository RECTAL ×2 (11:41→21:14)
[2019-11-18] MEDS: Insulin Lispro 100 UNIT/ML INSULN.PEN SC ×2 (11:49→21:12)
[2019-11-18 13:50] VITALS: BP 105/49; PULSE 78; RESP 18; TEMP 37.1; O2SAT 95
--- NOTE | 2019-11-18 15:25 | CASEMGMT ---
RN CM Assessment. Presentation: UTI, pneumonia Intro role of CM to patient in room. PT is awake, alert and oriented, able to participate in assessment. Demographics reviewed. Pt states she is very independent, volunteers and has no care needs at home. PCP: Dr. Prado Specialist: none Insurance: [employer] [facility]: [facility] benefit: yes LNOK: , [facility] Living Arrangements: single story home, 2 steps into home, basement laundry. Pt denies care needs, independent in ADL and IADL. DME: None, but states makes canes she can use if needed. Transportation: pt drives, but can if needed. Pt's DC plan: home DC PLAN: home. no needs identified at this time. RN CM let pt know to contact cm if any dc needs or concerns arise. Shaq SALEHN RN ACM
--- NOTE | 2019-11-18 16:00 | CHAPLAIN ---
Type of Pastoral Visit _x__ Initial Visit ___ Follow-up Visit ___ On-call Visit ___ General Patient Visit ___ Spiritual Assessment ___ Family Conference ___ Bereavement ___ Rapid Response ___ Code Blue ___ Other (describe below) Pastoral Care Referral From _x__ Patient ___ Family ___ Nurse ___ Physician ___ Photographic Editor ___ Fugitive Detective ___ Other (describe below) Sacrament/Intervention _x__ Active listening ___ Anointing ___ Denominational ___ Bereavement ___ Communion ___ Christen exploration ___ _x__ Life review _x__ Prayer ___ Reconciliation ___ Sacrament of Sick _x__ Supportive presence ___ Wedding ___ Other (describe below) Pastoral Comments
[2019-11-18 16:55] LABS: Bedside Glucose 94 mg/dL (70-110)
[2019-11-18 20:49] VITALS: BP 118/55; PULSE 80; RESP 20; TEMP 37.1; O2SAT 96
[2019-11-18] MEDS: CycloSPORINE Ophthalmic 1 DROP DROPERETTE 1 DRP EACH EYE (21:10)
[2019-11-18] MEDS: Ceftriaxone 1 GM/50 ML BAG IV (21:13)
[2019-11-18] MEDS: Ezetimibe 10 MG Tablet PO (21:14)
[2019-11-18 21:30] LABS: Bedside Glucose 169 mg/dL (70-110)
[2019-11-19 03:58] VITALS: BP 137/65; PULSE 88; RESP 20; TEMP 37.6; O2SAT 93
[2019-11-19] MEDS: Enoxaparin 30 MG/0.3 ML Syringe SC (06:02)
[2019-11-19 06:06] VITALS: TEMP 38.2
[2019-11-19] MEDS: Acetaminophen 325 MG Tablet 650 MG PO (06:09)
[2019-11-19 06:51] LABS: Bedside Glucose 140 mg/dL (70-110)
[2019-11-19 07:10] VITALS: TEMP 37.4
[2019-11-19 09:20] VITALS: BP 134/68; PULSE 79; RESP 16; TEMP 36.8; O2SAT 96
[2019-11-19] MEDS: amLODIPine 10 MG Tablet PO (09:20)
[2019-11-19] MEDS: hydroCHLOROthiazide 12.5mg 12.5 MG PO (09:20)
[2019-11-19] MEDS: CycloSPORINE Ophthalmic 1 DROP DROPERETTE 1 DRP EACH EYE ×2 (09:21→22:00)
[2019-11-19] MEDS: Calcium Carb/Vitamin D 1 TABLET Tablet PO (09:26)
[2019-11-19] MEDS: Lisinopril 10 MG Tablet PO (09:26)
[2019-11-19] MEDS: Hydrocortisone 25 MG Suppository RECTAL (09:38)
[2019-11-19] MEDS: 0.9% Saline Lock 10 ML Syringe IV ×4 (09:39→16:55)
[2019-11-19 10:25] LABS: Hematocrit 32.7 % (37-47); Hemoglobin 11.1 g/dL (12.0-15.0); Mean Corp Hgb Conc 33.9 g/dL (32-36); Mean Corpuscular Volume 91.3 fL (81-99); Mean Platelet Vol. 10.4 fl (6.2-12.0); POSITIVE COUNT YES; POSITIVE DIFFERENTIAL YES; POSITIVE MORPHOLOGY YES; Platelet Count 219 K/mm3 (150-450); RBC Distribution Width CV 13.5 % (11.6-14.6); Red Blood Count 3.58 M/mm3 (4.2-5.4); White Blood Count 21.9 K/mm3 (4.4-11.0)
[2019-11-19 10:26] LABS: Differential Indicated MANUAL DIFF
[2019-11-19 10:47] LABS: Anion Gap 5 (5-15); BUN 20 mg/dL (7-18); BUN/Creat Ratio 15.2 RATIO (10-20); Calcium,Total 8.6 mg/dL (8.5-10.1); Chloride 103 mmol/L (98-107); Creatinine, Serum 1.32 mg/dL (0.55-1.02); EST Glomerular Filtration Rate 41 mL/min (>60); Est Glom Filt Rate - Afr Amer 50 mL/min (>60); Estimated Creatinine Clearance 28.12 ml/min; Glucose 248 mg/dL (74-106); Lymphocyte 9 % (19-41); Metamyelocyte 1 % (0-1); Monocyte 3 % (0-10); Neutrophil-Band 8 % (0-5); Neutrophil-Segmented 79 % (47-70); Potassium 4.2 mmol/L (3.5-5.1); Sodium Level 136 mmol/L (136-145); Total Cells Counted 100 (MANUAL DIFF)
[2019-11-19 10:48] LABS: Platelet Estimate ADEQUATE (ADEQ); Red Cell Morphology NORM C+C NORMAL (NORM C&C)
[2019-11-19 10:49] LABS: Absolute Lymphocyte Count 1.97 X10^3/uL (0.83-4.51)
[2019-11-19] MEDS: Insulin Lispro 100 UNIT/ML INSULN.PEN SC ×2 (12:09→22:10)
[2019-11-19 12:20] LABS: Bedside Glucose 192 mg/dL (70-110)
--- NOTE | 2019-11-19 13:15 | PN_ITS ---
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 Patient was given Tylenol. She does not remember having fever, chills, sweating. Denies shortness of breath or chest pain. Patient wants to go home. Vitals/I&O's: Vital Signs Temp Pulse Resp BP Pulse Ox 98.2 F 79 16 134/68 H 96 11/19/19 09:20 11/19/19 09:20 11/19/19 09:20 11/19/19 09:20 11/19/19 09:20 Oxygen Flow Rate (L/min) 2 Oxygen Delivery Method Room Air Weight: 140 lb 10.479 oz Body Mass Index (BMI) 24.9 Intake and Output for Last 24 Hours 11/17/19 11/18/19 11/19/19 23:59 23:59 23:59 Intake Total 500 / 500 1525 / 1525 1095 / 1095 Output Total 1000 / 1000 Balance 500 / 500 525 / 525 1095 / 1095 General: Alert, Oriented x3, Cooperative HEENT: Atraumatic, PERRLA, EOMI, Normocephalic Neck: Supple, No JVD, Negative Carotid Bruits Lungs: Clear to auscultation, Normal air movement, No rhonchi, No wheeze, No rales, Diminished Cardiovascular: Regular rate, Regular Rhythm, Normal S1, Normal S2, No murmurs Abdomen: Bowel Sounds Present, Soft, Non Tender, Non-Distended, - - This patient has chronic urine retention and has to maneuver his bladder in order to empty it. She has increased frequency and urgency and incomplete emptying of bladder but denies burning micturition. Extremities: No edema, Capillary Refill Less than 3 Seconds Skin: No rashes, No breakdown Musculoskeletal: No Tenderness to Palpation of Joints or Extremities, Arthritic Changes Neurological: Cranial nerves II-XII grossly intact, Deep Tendon Reflexes 2+/4 and Symmetrical, Neuro grossly intact Psych/Mental Status: Normal Affect, Appropriate Microbiology Past 72 Hours 11/18/19 17:15 Mucosa - Nose Respiratory Panel (PCR) - Final 11/17/19 23:10 Urine, Clean Catch Urine Culture - Preliminary GNR lactose rod buster helper 11/18/19 14:10 Urine, Clean Catch Streptococcus pneumoniae Antigen (M - Final 11/18/19 14:10 Urine, Clean Catch Legionella Antigen - Final 11/17/19 21:44 Mucosa - Nose Influenza Types A,B Direct FA (SUSAN) - Final Laboratory Results 11/18/19 16:42: POC Glucose 94 11/18/19 21:04: POC Glucose 169 H 11/19/19 06:44: POC Glucose 140 H 11/19/19 10:15: WBC 21.9 H, RBC 3.58 L, Hgb 11.1 L, Hct 32.7 L, MCV 91.3, MCH 31.0, MCHC 33.9, RDW Std Deviation 45.0 H, RDW Coeff of Santana 13.5, Plt Count 219, MPV 10.4, Neut % (Auto) Not Reportable, Absolute Neuts (auto) 19.0 H, Absolute Lymphs (auto) 1.97, Total Counted 100, Neutrophils % (Manual) 79 H, Band Neutrophils % 8 H, Lymphocytes % (Manual) 9 L, Monocytes % (Manual) 3, Metamyelocytes % 1, Diff Path Review January, Platelet Estimate ADEQUATE, RBC Morphology NORM C+C 11/19/19 10:15: Sodium 136, Potassium 4.2, Chloride 103, Carbon Dioxide 28.0, Anion Gap 5, BUN 20 H, Creatinine 1.32 H, Estim Creat Clear Calc 28.12, Est GFR (MDRD) Af Amer 50 L, Est GFR (MDRD) Non-Af 41 L, BUN/Creatinine Ratio 15.2, Glucose 248 H, Calcium 8.6 11/19/19 12:08: POC Glucose 192 H Current Medications Acetaminophen (Tylenol) 650 mg PO Q6H PRN PRN PRN Reason: Pain Score 1-10/Temp > 100.7 F Last Admin: 11/19/19 06:09 Dose: 650 mg Documented by: Amlodipine Besylate (Norvasc) 10 mg PO DAILY [facility] Last Admin: 11/19/19 09:20 Dose: 10 mg Documented by: Calcium/Vitamin D (Os-Stu 500mg + D) 1 tablet PO DAILY [facility] Last Admin: 11/19/19 09:26 Dose: 1 tablet Documented by: Cholecalciferol (Vitamin D (25mcg)) 1,000 unit PO DAILY [facility] Last Admin: 11/19/19 09:26 Dose: 1,000 unit Documented by: Cyclosporine (Restasis Ophthalmic) 1 drop EACH EYE BID [facility] Last Admin: 11/19/19 09:21 Dose: 1 drop Documented by: Ezetimibe (Zetia) 10 mg PO QHS [facility] Last Admin: 11/18/19 21:14 Dose: 10 mg Documented by: Enoxaparin Sodium (Lovenox) 30 mg SC DAILY@0600 [facility] Last Admin: 11/19/19 06:02 Dose: 30 mg Documented by: Glucagon () 1 mg IM .X1 PRN PRN Reason: Hypoglycemia Hydrochlorothiazide () 12.5 mg PO DAILY [facility] Last Admin: 11/19/19 09:20 Dose: 12.5 mg Documented by: Hydrocortisone Acetate (Anusol Hc) 25 mg RECTAL BID [facility] Last Admin: 11/19/19 09:38 Dose: 25 mg Documented by: Sodium Chloride () 250 mls @ 15 mls/hr IV .[id number] PRN PRN Reason: Saline Flush Sodium Chloride () 250 mls @ 15 mls/hr IV .[id number] PRN PRN Reason: Additional IVPB Infusion Azithromycin 500 mg/ Dextrose 255 mls @ 250 mls/hr IV Q24 [facility] Last Infusion: 11/19/19 10:32 Dose: Infused Documented by: Ceftriaxone Sodium (Rocephin) 1 gm in 50 mls @ 100 mls/hr IV QHS [facility] Last Infusion: 11/18/19 23:03 Dose: Infused Documented by: Dextrose (Dextrose 10%-Water) 250 mls @ 999 mls/hr IV .Q16M PRN; Protocol PRN Reason: HYPOGLYCEMIA Insulin Human Lispro (Humalog Kwikpen (Bkc)) 0 unit SC ACHS [facility]; Protocol Last Admin: 11/19/19 12:09 Dose: 2 units Documented by: Lisinopril (Zestril) 10 mg PO DAILY [facility] Last Admin: 11/19/19 09:26 Dose: 10 mg Documented by: Ondansetron HCl (Zofran Odt) 4 mg PO Q8H PRN PRN PRN Reason: NAUSEA Ondansetron HCl (Zofran) 4 mg IV Q8H PRN PRN PRN Reason: NAUSEA/VOMITING Sodium Chloride () 10 - 40 ml IV UD PRN PRN Reason: SALINE FLUSH Last Admin: 11/19/19 12:09 Dose: 10 ml Documented by: STROKE Vital Signs/Narrative: Vital Signs Temp Pulse Resp BP Pulse Ox 11/19/19 09:20 98.2 F 79 16 134/68 H 96 Medical Necessity - Tobacco Use Smoking Status: Former smoker Tobacco Use: Non-smoker Assessment/Plan This is 79 y/o female admitted with a complaint of fever. 1. SIRS (Fever with leukocytosis), sepsis with UTI and/or pneumonia: Empirically on IV Rocephin. Mild leukocytosis. UA positive of 1+ bacteria and WBC more than 100 cells. Preliminary urine culture growing more than 100,000 gram-negative preet lactose rod buster helper. Blood cultures x2 ordered. 2. Community acquired pneumonia: * CXR showed small left pleural effusion * CTA showed evidence of right lower lobe infiltrate. CT chest reported right lower lobe consolidation consistent with pneumonia and small sympathetic right sided pleural effusion. * Urinary antigens, sputum culture and respiratory panel are all negative * Continue IV ceftriaxone and IV azithromycin. Ceftriaxone dose increased to 2 g daily 3. Elevated BNP at 303: 2D echo done. Overall it is suggestive of chronic heart failure with preserved EF/diastolic heart failure Echo was done. The estimated ejection fraction is 65 %. LA mildly enlarged Unable to assess diastolic dysfunction. There is moderate mitral annular calcification. Moderate focal mitral valve calcification, bileaflet. Moderate mitral valve stenosis. 4. PAUL, most probably from sepsis/ATN: Patient creatinine was normal in October 2019. On 11/14 1.47. Repeat BUN/creatinine 20/1.32. Estimated creatinine clearance 28.32. Possible cardiorenal disease. 5 Hyponatremia: Na is 133. Repeat sodium 134. Corrected 6. Chronic hemorrhoids, stage III: Anusol rectal cream ordered. 7. Hypertension: on amlodipine, moexipril/HCTZ 8. Hyperlipidemia: on ezetimibe. DVT prophylaxis: lovenox Total time of the visit including total time spent in counseling or coordination of care, (more than 50% of the total time, spent in obtaining medical information from nurses and other ancillary care providers), discussion at bedside with daughter near the bedside, review of labs and imaging is 35 minutes. Patient decided to stay. Microbiology Past 72 Hours 11/18/19 17:15 Mucosa - Nose Respiratory Panel (PCR) - Final 11/17/19 23:10 Urine, Clean Catch Urine Culture - Preliminary GNR lactose rod buster helper 11/18/19 14:10 Urine, Clean Catch Streptococcus pneumoniae Antigen (M - Final 11/18/19 14:10 Urine, Clean Catch Legionella Antigen - Final 11/17/19 21:44 Mucosa - Nose Influenza Types A,B Direct FA (SUSAN) - Final Laboratory Results 11/18/19 16:42: POC Glucose 94 11/18/19 21:04: POC Glucose 169 H 11/19/19 06:44: POC Glucose 140 H 11/19/19 10:15: WBC 21.9 H, RBC 3.58 L, Hgb 11.1 L, Hct 32.7 L, MCV 91.3, MCH 31.0, MCHC 33.9, RDW Std Deviation 45.0 H, RDW Coeff of Santana 13.5, Plt Count 219, MPV 10.4, Neut % (Auto) Not Reportable, Absolute Neuts (auto) 19.0 H, Absolute Lymphs (auto) 1.97, Total Counted 100, Neutrophils % (Manual) 79 H, Band Neutrophils % 8 H, Lymphocytes % (Manual) 9 L, Monocytes % (Manual) 3, Metamyelocytes % 1, Diff Path Review January, Platelet Estimate ADEQUATE, RBC Morphology NORM C+C 11/19/19 10:15: Sodium 136, Potassium 4.2, Chloride 103, Carbon Dioxide 28.0, Anion Gap 5, BUN 20 H, Creatinine 1.32 H, Estim Creat Clear Calc 28.12, Est GFR (MDRD) Af Amer 50 L, Est GFR (MDRD) Non-Af 41 L, BUN/Creatinine Ratio 15.2, Glucose 248 H, Calcium 8.6 11/19/19 12:08: POC Glucose 192 H Code Visit Inpatient E&M: 03909 Subs Hosp L3
--- NOTE | 2019-11-19 14:28 | US_ITS ---
STUDY: RENAL ULTRASOUND - COMPLETE REASON FOR EXAM: Female, 79 years old. RECURRING UTI''S TECHNIQUE: Ultrasound evaluation of the kidneys was performed with real-time and static hassan-scale imaging. COMPARISON: None. FINDINGS: RIGHT KIDNEY: Normal location of the right kidney, which is normal in size. The right kidney measures 11.8 cm. There is a normal cortex of the right kidney. The renal cortex measures 11.7 cm. There is a 1.1 x 1.2 x 0.8 cm right renal cyst. The inferior pole was obscured due to bowel gas. There are no right renal calculi. There is no right hydronephrosis. DISTAL RIGHT URETER: There is non-visualization of the distal right ureter. There is no demonstrated right ureterovesical junction calculus. There is a non- visualized right ureteral jet. LEFT KIDNEY: Normal location of the left kidney, which is normal in size. The left kidney measures 10.7 cm. There is a normal cortex of the left kidney. The renal cortex measures 1.5 cm. There is a large 9.6 x 8.7 x 7 cm cyst within the upper pole. The inferior pole of the left kidney is obscured by bowel gas. There are no left renal calculi. There is no left hydronephrosis. DISTAL LEFT URETER: There is non-visualization of the distal left ureter. There is no demonstrated left ureterovesical junction calculus. There is a visualized left ureteral jet. BLADDER: The distended urinary bladder has a volume of 453.38 ml. The empty urinary bladder has a volume of 20.46 ml the bladder wall measures 3.9 mm There is no demonstrated mass within the urinary bladder. There are no demonstrated bladder calculi. US/Kidney and Bladder IMPRESSION: 1.1 x 1.2 x 0.8 cm right renal cyst 9.6 x 8.7 x 7 cm left renal cyst Inferior pole both kidneys is obscured due to bowel gas. Electronically Signed: Nic Nolen, at 16:35 EST Tel , Service support ,
[2019-11-19 14:33] VITALS: BP 150/74; PULSE 89; RESP 18; TEMP 37; O2SAT 98
[2019-11-19 17:16] LABS: Bedside Glucose 140 mg/dL (70-110)
--- NOTE | 2019-11-19 17:41 | NURSING ---
reviewed and agree with documentation by BARBY Galo
[2019-11-19 20:30] VITALS: BP 131/63; PULSE 79; RESP 18; TEMP 37.6; O2SAT 94
[2019-11-19] MEDS: Ezetimibe 10 MG Tablet PO (22:07)
[2019-11-19 22:16] LABS: Bedside Glucose 185 mg/dL (70-110)
[2019-11-20 02:30] VITALS: BP 124/66; PULSE 76; RESP 18; TEMP 37.3; O2SAT 96
[2019-11-20] MEDS: Enoxaparin 30 MG/0.3 ML Syringe SC (06:46)
[2019-11-20 06:50] LABS: Bedside Glucose 126 mg/dL (70-110)
[2019-11-20 07:44] LABS: Hemoglobin 11.3 g/dL (12.0-15.0); Mean Corp Hgb Conc 33.2 g/dL (32-36); Mean Corpuscular Hgb 30.2 pg (27.0-32.0); Mean Corpuscular Volume 90.9 fL (81-99); Mean Platelet Vol. 10.3 fl (6.2-12.0); POSITIVE COUNT YES; POSITIVE MORPHOLOGY YES; Platelet Count 265 K/mm3 (150-450); RBC Distribution Width SD 46.7 fl (35.1-43.9); Red Blood Count 3.74 M/mm3 (4.2-5.4); White Blood Count 16.5 K/mm3 (4.4-11.0)
[2019-11-20 07:50] LABS: Differential Indicated MANUAL DIFF
[2019-11-20 08:09] LABS: Anion Gap 6 (5-15); BUN 14 mg/dL (7-18); BUN/Creat Ratio 13.3 RATIO (10-20); Chloride 103 mmol/L (98-107); Creatinine, Serum 1.05 mg/dL (0.55-1.02); EST Glomerular Filtration Rate 54 mL/min (>60); Est Glom Filt Rate - Afr Amer 65 mL/min (>60); Estimated Creatinine Clearance 35.35 ml/min; Glucose 128 mg/dL (74-106); Potassium 3.9 mmol/L (3.5-5.1); Sodium Level 140 mmol/L (136-145)
[2019-11-20 08:23] LABS: Lymphocyte 10 % (19-41); Monocyte 9 % (0-10); Neutrophil-Band 4 % (0-5); Neutrophil-Segmented 77 % (47-70); Total Cells Counted 100 (MANUAL DIFF)
[2019-11-20 08:24] LABS: Nucleated Red Bld Cells,Manual 1 % (0-5); Platelet Estimate ADEQUATE (ADEQ); Red Cell Morphology NORM C+C NORMAL (NORM C&C)
[2019-11-20 08:25] LABS: Absolute Lymphocyte Count 1.65 X10^3/uL (0.83-4.51); Absolute Neutrophil Count 13.4 X10^3/uL (2.0-7.7)
[2019-11-20 08:30] VITALS: BP 141/65; PULSE 88; RESP 18; TEMP 36.9; O2SAT 96
--- NOTE | 2019-11-20 08:33 | DCINST_ITS ---
You will use the following diet at home:: Cardiac Call your doctor if you observe: Fever of 101 or Higher, Coldness, Increased Pain, Inability to urinate, Inability to have a bowel movement, Shortness of breath, Dizziness, Fainting spells, Swelling in the ankles, Chest pain, Increased palpitations (irregular heartbeat), Calf discomfort, Uncontrolled pain Allergies/Adverse Reactions: Allergies No Known Allergies Allergy (Verified 11/17/19 19:40) Medications to take at Discharge Diclofenac Sodium [Voltaren] 1 oint TOPICAL PRN PRN 04/18/14 Metformin HCl [Metformin HCl ER] 500 mg PO DAILY 04/18/14 Moexipril/Hydrochlorothiazide [Moexipril-Hctz 15-12.5 mg Tab] 1 tab PO DAILY 04/18/14 Amlodipine [Norvasc] 10 mg PO DAILY 04/30/17 Ezetimibe [Zetia] 10 mg PO QHS 04/30/17 Calcium Carbonate/Vitamin D3 [Calcium 500-Vit D3 600 Caplet] 1 ea PO DAILY 11/14/19 Cholecalciferol (VIT D3) [Vitamin D3] 1,000 unit PO DAILY 11/14/19 Flaxseed Oil [Flax Oil] 1,000 mg PO DAILY 11/14/19 Ondansetron [Zofran Odt] 4 mg PO Q8H PRN PRN #7 tab 11/14/19 CycloSPORINE Ophthalmic [Restasis Ophthalmic] 1 drp EACH EYE BID 11/18/19 Guaifenesin [Mucinex] 1,200 mg PO BID #14 tab.er.12h 11/20/19 Hydrocortisone [Anusol Hc] 25 mg RECTAL BID #1 suppos. 11/20/19 Levofloxacin [Levaquin] 750 mg PO DAILY #5 tab 11/20/19 The following prescriptions were given: Hydrocortisone [Anusol Hc] 25 mg RECTAL BID #1 suppos. Transmission Status: Received by YENY GLEASON RD Levofloxacin [Levaquin] 750 mg PO DAILY #5 tab Transmission Status: Received by YENY GONZALESVELAND AYESHA Guaifenesin [Mucinex] 1,200 mg PO BID #14 tab.er.12h Transmission Status: Received by YENY GONZALESVELAND AYESHA Primary Care Physician: Wilfred Prado MD [Primary Care Provider] - Please follow up with your Primary Care Physician in: in 2 weeks Test Results: Test results from this visit will be discussed in further detail at your follow- up appointment, if applicable. Please Follow Up With: Xu Mc MD When: in 4 weeks for chr diastolic HF Please Follow Up With: Luis Daniel Escobedo MD When: in 2 weeks for large cyst in left kidney about 10 cm
--- NOTE | 2019-11-20 08:36 | PCM.DC.SUM ---
Discharge Date and Diagnosis Date of Admission: 11/18/19 Date of Discharge: 11/20/19 Hospital Course and Treatment Summary of Care Provided: [] This is 79 y/o female admitted with a complaint of fever. 1. SIRS (Fever with leukocytosis), sepsis with UTI and/or pneumonia: Empirically on IV Rocephin. Mild leukocytosis. UA positive of 1+ bacteria and WBC more than 100 cells. Urine culture shows E. coli more than 100,000 sensitive to Levaquin. Culture negative for more than 24 hours, discussed with microbiology lab and same informed to the patient. Renal ultrasound and bladder was done. Renal ultrasound reported 9.6 x 8.7 x 7 cm left renal cyst. Follow-up with work from home. 2. Community acquired pneumonia: CXR showed small left pleural effusion CTA showed evidence of right lower lobe infiltrate. CT chest reported right lower lobe consolidation consistent with pneumonia and small sympathetic right sided pleural effusion. Urinary antigens, sputum culture and respiratory panel are all negative Continue IV ceftriaxone and IV azithromycin. Ceftriaxone dose increased to 2 g daily Patient sent home on Levaquin 750 mg for 5 more days. Prescription also sent for Mucinex. 3. Elevated BNP at 303: 2D echo done. Overall it is suggestive of chronic heart failure with preserved EF/diastolic heart failure Echo was done. The estimated ejection fraction is 65 %. LA mildly enlarged Unable to assess diastolic dysfunction. There is moderate mitral annular calcification. Moderate focal mitral valve calcification, bileaflet. Moderate mitral valve stenosis. 4. PAUL, most probably from sepsis/ATN/possible cardiorenal disease: Patient creatinine was normal in October 2019. On 11/14 1.47. Last BUN/creatinine 14/1.05. Estimated creatinine clearance 35 mils per minute. 5 Hyponatremia: Na is 133. Repeat sodium 140. 6. Chronic hemorrhoids, stage III: Anusol rectal cream was given and a prescription sent to the patient's pharmacy. 7. Hypertension: on amlodipine, moexipril/HCTZ 8. Hyperlipidemia: on ezetimibe. DVT prophylaxis: lovenox Discharge medication reconciliation done. Discharge follow-up instructions completed. Discharge process discussed with the patient and all questions were answered to patient's satisfaction. Prescription was discussed with right aid pharmacist regarding Levaquin, Mucinex and Anusol rectal cream. Total time spent, exact 35 minutes on discharge meds reconciliation, examination, coordination of care with nurses and ancillary staff, review of imaging and blood test and discussion with the patient on follow-up instructions Clinical Impression(s) from Imaging Studies Chest X-Ray 11/17/19 21:20 IMPRESSION: New tiny right pleural effusion since prior exam. No other significant abnormalities. Electronically Signed: Caleb Merino MD at 21:38 EST , Service support , Chest CTA 11/17/19 23:31 IMPRESSION: Normal CTA chest examination, without a demonstrated pulmonary embolism or arterial dissection. A right lower lobe consolidation consistent with pneumonia. There is a small sympathetic right-sided pleural effusion. Platelike atelectatic changes in the left base. A 5.7 cm left renal cyst Electronically Signed: Olman Zayas MD at 2:49 EST Tel , Service support , Renal Ultrasound 11/19/19 14:28 IMPRESSION: 1.1 x 1.2 x 0.8 cm right renal cyst 9.6 x 8.7 x 7 cm left renal cyst Inferior pole both kidneys is obscured due to bowel gas. Electronically Signed: Nic Nolen at 16:35 EST Tel , Service support , Subjective: No fever or chills. T-max was 99.7 at 8 PM yesterday. No associated tachycardia. No clinical signs and symptoms of sepsis. Objective: Seen and examined. General: Alert, Oriented x3, Cooperative HEENT: Atraumatic, PERRLA, EOMI, Normocephalic Neck: Supple, No JVD, Negative Carotid Bruits Lungs: Clear to auscultation, Normal air movement, No rhonchi, No wheeze, No rales, air entry bilateral equal Cardiovascular: Regular rate, Regular Rhythm, Normal S1, Normal S2, No murmurs Abdomen: Bowel Sounds Present, Soft, Non Tender, Non-Distended, chronic urine retention and has to maneuver his bladder in order to empty it. She has increased frequency and urgency and incomplete emptying of bladder but denies burning micturition. Extremities: No edema, Capillary Refill Less than 3 Seconds Skin: No rashes, No breakdown Musculoskeletal: No Tenderness to Palpation of Joints or Extremities, Arthritic Changes Neurological: Cranial nerves II-XII grossly intact, Deep Tendon Reflexes 2+/4 and Symmetrical, Neuro grossly intact Psych/Mental Status: Normal Affect, Appropriate - Physical Exam Vitals/I&O's: Vital Signs Temp Pulse Resp BP Pulse Ox 99.2 F H 76 18 124/66 H 96 11/20/19 02:30 11/20/19 02:30 11/20/19 02:30 11/20/19 02:30 11/20/19 02:30 Oxygen Flow Rate (L/min) 2 Oxygen Delivery Method Room Air Weight: 140 lb 10.479 oz Body Mass Index (BMI) 24.9 Intake and Output for Last 24 Hours 11/18/19 11/19/19 11/20/19 23:59 23:59 23:59 Intake Total 1525 / 1525 1645 / 1645 Output Total 1000 / 1000 Balance 525 / 525 1645 / 1645 Microbiology Past 72 Hours 11/17/19 23:10 Urine, Clean Catch Urine Culture - Final Escherichia coli 11/18/19 17:15 Mucosa - Nose Respiratory Panel (PCR) - Final 11/18/19 14:10 Urine, Clean Catch Streptococcus pneumoniae Antigen (M - Final 11/18/19 14:10 Urine, Clean Catch Legionella Antigen - Final 11/17/19 21:44 Mucosa - Nose Influenza Types A,B Direct FA (SUSAN) - Final Laboratory Results 11/19/19 10:15: WBC 21.9 H, RBC 3.58 L, Hgb 11.1 L, Hct 32.7 L, MCV 91.3, MCH 31.0, MCHC 33.9, RDW Std Deviation 45.0 H, RDW Coeff of Santana 13.5, Plt Count 219, MPV 10.4, Neut % (Auto) Not Reportable, Absolute Neuts (auto) 19.0 H, Absolute Lymphs (auto) 1.97, Total Counted 100, Neutrophils % (Manual) 79 H, Band Neutrophils % 8 H, Lymphocytes % (Manual) 9 L, Monocytes % (Manual) 3, Metamyelocytes % 1, Diff Path Review May foll, Platelet Estimate ADEQUATE, RBC Morphology NORM C+C 11/19/19 10:15: Sodium 136, Potassium 4.2, Chloride 103, Carbon Dioxide 28.0, Anion Gap 5, BUN 20 H, Creatinine 1.32 H, Estim Creat Clear Calc 28.12, Est GFR (MDRD) Af Amer 50 L, Est GFR (MDRD) Non-Af 41 L, BUN/Creatinine Ratio 15.2, Glucose 248 H, Calcium 8.6 11/19/19 12:08: POC Glucose 192 H 11/19/19 16:54: POC Glucose 140 H 11/19/19 22:09: POC Glucose 185 H 11/20/19 06:36: WBC 16.5 H, RBC 3.74 L, Hgb 11.3 L, Hct 34.0 L, MCV 90.9, MCH 30.2, MCHC 33.2, RDW Std Deviation 46.7 H, RDW Coeff of Santana 14.0, Plt Count 265, MPV 10.3, Neut % (Auto) Not Reportable, Absolute Neuts (auto) 13.4 H, Absolute Lymphs (auto) 1.65, Total Counted 100, Neutrophils % (Manual) 77 H, Band Neutrophils % 4, Lymphocytes % (Manual) 10 L, Monocytes % (Manual) 9, Nucleated RBCs/100 WBC 1, Diff Path Review January ginger, Platelet Estimate ADEQUATE, RBC Morphology NORM C+C 11/20/19 06:36: Sodium 140, Potassium 3.9, Chloride 103, Carbon Dioxide 31.0, Anion Gap 6, BUN 14, Creatinine 1.05 H, Estim Creat Clear Calc 35.35, Est GFR (MDRD) Af Amer 65, Est GFR (MDRD) Non-Af 54 L, BUN/Creatinine Ratio 13.3, Glucose 128 H, Calcium 9.0 11/20/19 06:45: POC Glucose 126 H Current Medications Acetaminophen (Tylenol) 650 mg PO Q6H PRN PRN PRN Reason: Pain Score 1-10/Temp > 100.7 F Last Admin: 11/19/19 06:09 Dose: 650 mg Documented by: Amlodipine Besylate (Norvasc) 10 mg PO DAILY [facility] Last Admin: 11/19/19 09:20 Dose: 10 mg Documented by: Calcium/Vitamin D (Os-Stu 500mg + D) 1 tablet PO DAILY [facility] Last Admin: 11/19/19 09:26 Dose: 1 tablet Documented by: Cholecalciferol (Vitamin D (25mcg)) 1,000 unit PO DAILY [facility] Last Admin: 11/19/19 09:26 Dose: 1,000 unit Documented by: Cyclosporine (Restasis Ophthalmic) 1 drop EACH EYE BID [facility] Last Admin: 11/19/19 22:00 Dose: 1 drop Documented by: Ezetimibe (Zetia) 10 mg PO QHS [facility] Last Admin: 11/19/19 22:07 Dose: 10 mg Documented by: Enoxaparin Sodium (Lovenox) 30 mg SC DAILY@0600 [facility] Last Admin: 11/20/19 06:46 Dose: 30 mg Documented by: Glucagon () 1 mg IM .X1 PRN PRN Reason: Hypoglycemia Hydrochlorothiazide () 12.5 mg PO DAILY [facility] Last Admin: 11/19/19 09:20 Dose: 12.5 mg Documented by: Hydrocortisone Acetate (Anusol Hc) 25 mg RECTAL BID [facility] Last Admin: 11/19/19 21:59 Dose: Not Given Documented by: Sodium Chloride () 250 mls @ 15 mls/hr IV .[id number] PRN PRN Reason: Saline Flush Sodium Chloride () 250 mls @ 15 mls/hr IV .[id number] PRN PRN Reason: Additional IVPB Infusion Azithromycin 500 mg/ Dextrose 255 mls @ 250 mls/hr IV Q24 [facility] Last Infusion: 11/19/19 10:32 Dose: Infused Documented by: Dextrose (Dextrose 10%-Water) 250 mls @ 999 mls/hr IV .Q16M PRN; Protocol PRN Reason: HYPOGLYCEMIA Ceftriaxone Sodium 2 gm/ (Sodium Chloride) 50 mls @ 100 mls/hr IV Q24 [facility] Last Infusion: 11/19/19 15:51 Dose: Infused Documented by: Insulin Human Lispro (Humalog Kwikpen (Bkc)) 0 unit SC ACHS [facility]; Protocol Last Admin: 11/20/19 06:46 Dose: Not Given Documented by: Lisinopril (Zestril) 10 mg PO DAILY [facility] Last Admin: 11/19/19 09:26 Dose: 10 mg Documented by: Ondansetron HCl (Zofran Odt) 4 mg PO Q8H PRN PRN PRN Reason: NAUSEA Ondansetron HCl (Zofran) 4 mg IV Q8H PRN PRN PRN Reason: NAUSEA/VOMITING Sodium Chloride () 10 - 40 ml IV UD PRN PRN Reason: SALINE FLUSH Last Admin: 11/19/19 16:55 Dose: 10 ml Documented by: Call your doctor if you observe: Fever of 101 or Higher, Coldness, Increased Pain, Inability to urinate, Inability to have a bowel movement, Shortness of breath, Dizziness, Fainting spells, Swelling in the ankles, Chest pain, Increased palpitations (irregular heartbeat), Calf discomfort, Uncontrolled pain Home Medications: Medications to take at Discharge Diclofenac Sodium [Voltaren] 1 oint TOPICAL PRN PRN 04/18/14 Metformin HCl [Metformin HCl ER] 500 mg PO DAILY 04/18/14 Moexipril/Hydrochlorothiazide [Moexipril-Hctz 15-12.5 mg Tab] 1 tab PO DAILY 04/18/14 Amlodipine [Norvasc] 10 mg PO DAILY 04/30/17 Ezetimibe [Zetia] 10 mg PO QHS 04/30/17 Calcium Carbonate/Vitamin D3 [Calcium 500-Vit D3 600 Caplet] 1 ea PO DAILY 11/14/19 Cholecalciferol (VIT D3) [Vitamin D3] 1,000 unit PO DAILY 11/14/19 Flaxseed Oil [Flax Oil] 1,000 mg PO DAILY 11/14/19 Ondansetron [Zofran Odt] 4 mg PO Q8H PRN PRN #7 tab 11/14/19 CycloSPORINE Ophthalmic [Restasis Ophthalmic] 1 drp EACH EYE BID 11/18/19 Guaifenesin [Mucinex] 1,200 mg PO BID #14 tab.er.12h 11/20/19 Hydrocortisone [Anusol Hc] 25 mg RECTAL BID #1 suppos. 11/20/19 Levofloxacin [Levaquin] 750 mg PO DAILY #5 tab 11/20/19 Following Prescrptions Were Given to Patient: Hydrocortisone [Anusol Hc] 25 mg RECTAL BID #1 suppos. Transmission Status: Received by YENY GONZALESVELAND AYESHA Levofloxacin [Levaquin] 750 mg PO DAILY #5 tab Transmission Status: Received by YENY [facility] [place] A[facility] Guaifenesin [Mucinex] 1,200 mg PO BID #14 tab.er.12h Transmission Status: Received by YENY GARC[facility]-[address] [facility] Primary Care Physician: Wilfred Prado MD [Primary Care Provider] - Please follow up with your Primary Care Physician in: in 2 weeks Please Follow Up With: Xu Mc MD When: in 4 weeks for chr diastolic HF Medical Necessity - Tobacco Use Smoking Status: Former smoker Tobacco Use: Non-smoker Meaningful Use Info Meaningful Use Diagnoses (Choose all that apply): None applicable Code Visit Inpatient E&M: 60318 Disch Hosp
[2019-11-20 09:00] VITALS: PULSE 88
[2019-11-20] MEDS: CycloSPORINE Ophthalmic 1 DROP DROPERETTE 1 DRP EACH EYE (09:45)
[2019-11-20] MEDS: Lisinopril 10 MG Tablet PO (10:28)
[2019-11-20] MEDS: hydroCHLOROthiazide 12.5mg 12.5 MG PO (10:29)
[2019-11-20] MEDS: levoFLOXacin 750 MG Tablet PO (10:29)
[2019-11-20] MEDS: Calcium Carb/Vitamin D 1 TABLET Tablet PO (10:29)
[2019-11-20] MEDS: amLODIPine 10 MG Tablet PO (10:29)
[2019-11-20 12:29] VITALS: BP 154/74; PULSE 85; RESP 16; TEMP 36.8; O2SAT 98
[2019-11-22 09:47] LABS: Pathologist Review Reviewed
[2019-11-22 09:56] LABS: Pathologist Review Reviewed
[2019-11-22 10:03] LABS: Pathologist Review Reviewed
== END 2019-11-20 12:30 | disposition home or self-care (01) | DRG 871 ==
LOC: ED 21:19 → MS2 11-18 00:06 → MS3 11-18 15:01
PROVIDERS: Admitting Provider Student in an Organized Health Care Education/Training Program; Emergency Provider Emergency Medicine; PCP Family Medicine; Visit Provider Internal Medicine
DX: A41.9 Sepsis, unspecified organism (principal); J18.9 Pneumonia, unspecified organism; N17.0 Acute kidney failure with tubular necrosis; N39.0 Urinary tract infection, site not specified; E87.1 Hypo-osmolality and hyponatremia; I50.32 Chronic diastolic (congestive) heart failure; E78.5 Hyperlipidemia, unspecified; K64.2 Third degree hemorrhoids; B96.20 Unspecified Escherichia coli [E. coli] as the cause of diseases classified elsewhere; I11.0 Hypertensive heart disease with heart failure; Z87.891 Personal history of nicotine dependence
CPT/HCPCS: 36415; 71045; 71275; 76770; 80048; 80053; 81001; 82962; 83880; 85025; 87040; 87077; 87086; 87088; 87186; 87449; 87633; 87804; 93005; 93306; 97161; 97166; 99284; Q9967; A4216; J0696

== ENCOUNTER → 2019-11-28 15:50 | Outpatient (CLI) | payer MEDICARE, SELFPAY ==
[2019-11-18 01:20] VITALS: BMI 24.9
== END ==
PROVIDERS: PCP Family Medicine; Referring Provider Nurse Practitioner Family; Visit Provider Nurse Practitioner Family
DX: J02.9 Acute pharyngitis, unspecified (principal)
CPT/HCPCS: 87070

== ENCOUNTER → 2020-01-18 10:31 | Outpatient (CLI) | payer MEDICARE, SELFPAY ==
[2020-01-18 09:38] VITALS: BMI 23.6
[2020-01-18 12:00] LABS: Anion Gap 4 (5-15); BUN 23 mg/dL (7-18); Calcium,Total 9.6 mg/dL (8.5-10.1); Chloride 101 mmol/L (98-107); EST Glomerular Filtration Rate 57 mL/min (>60); Est Glom Filt Rate - Afr Amer 69 mL/min (>60); Glucose 186 mg/dL (74-106); Potassium 4.1 mmol/L (3.5-5.1); Sodium Level 136 mmol/L (136-145)
== END ==
PROVIDERS: PCP Family Medicine; Referring Provider Internal Medicine Cardiovascular Disease; Visit Provider Internal Medicine Cardiovascular Disease
DX: I50.33 Acute on chronic diastolic (congestive) heart failure (principal)
CPT/HCPCS: 36415; 80048

== ENCOUNTER → 2020-05-07 09:37 | Outpatient (CLI) | payer MEDICARE, SELFPAY ==
[2020-01-18 09:38] VITALS: BMI 23.6
[2020-05-07 12:44] LABS: Hemoglobin A1c 6.6 % (3.8-5.6)
[2020-05-07 12:48] LABS: Anion Gap 6 (5-15); BUN 20 mg/dL (7-18); BUN/Creat Ratio 20.2 RATIO (10-20); Calcium,Total 9.6 mg/dL (8.5-10.1); Chloride 103 mmol/L (98-107); Cholesterol 232 mg/dL (200); Creatinine, Serum 0.99 mg/dL (0.55-1.02); EST Glomerular Filtration Rate 57 mL/min (>60); Est Glom Filt Rate - Afr Amer 69 mL/min (>60); Glucose 198 mg/dL (74-106); High Density Lipoprotein 104 mg/dL; Potassium 4.3 mmol/L (3.5-5.1); Sodium Level 137 mmol/L (136-145); Triglycerides 93 mg/dL; Very Low Density Lipoprotein 19 mg/dL (5-40)
[2020-05-07 13:00] LABS: Microalbumin,Random Urine < 5.0 mg/L (NO RANGE EST.)
== END ==
PROVIDERS: PCP Family Medicine; Referring Provider Family Medicine; Visit Provider Family Medicine
DX: I10 Essential (primary) hypertension (principal); E11.9 Type 2 diabetes mellitus without complications
CPT/HCPCS: 36415; 80048; 80061; 82043; 83036

== ENCOUNTER → 2020-06-15 08:10 | Outpatient (CLI) | payer MEDICARE, SELFPAY ==
[2020-01-18 09:38] VITALS: BMI 23.6
--- NOTE | 2020-06-15 08:36 | BI_ITS ---
MAMMOGRAPHY - BILATERAL SCREENING REASON FOR EXAM: Female, 79 years old. Routine annual screening examination. PERTINENT HISTORY: Non-contributory. Remote left excisional breast biopsy and right stereotactic breast biopsy. TECHNIQUE: Digital bilateral breast catie (3D mammographic acquisition) in the CC and MLO projections. 2-D mediolateral oblique (MLO) and craniocaudad (CC) views of both breasts were obtained. CAD: Full Field Digital Mammography with Computer Added Detection was performed. COMPARISON: Comparison is made with prior examination dated 05/19/2019 and 09/08/2017. FINDINGS: Breast Composition: The breasts are heterogeneously dense, which may obscure small masses. There are no dominant masses or suspicious calcifications. A tissue clip marker is once again seen in the upper deep lateral aspect of the left breast. No other significant abnormalities are identified. There has been no significant change since the prior study. BI/SCREEN MAMM (CAD) W/CATIE BILAT IMPRESSION: Stable bilateral screening mammogram. Yearly follow-up mammogram recommended. (A) ASSESSMENT CATEGORY: BIRADS Category 2: Benign. A letter regarding these results will be sent to the patient by the facility within 30 days. Approximately 10% of breast cancers are not detected by mammography. A normal mammogram should not delay biopsy of a clinically suspicious abnormality. [id number] Electronically Signed: Patricio Quarles, at 13:39 EDT , Service support ,
== END ==
PROVIDERS: PCP Family Medicine; Referring Provider Family Medicine; Visit Provider Family Medicine
DX: Z12.31 Encounter for screening mammogram for malignant neoplasm of breast (principal)
CPT/HCPCS: 77063; 77067

== ENCOUNTER → 2020-11-07 09:01 | Outpatient (CLI) | payer MEDICARE, SELFPAY ==
[2020-07-25 10:05] VITALS: BMI 24.1
[2020-11-07 10:57] LABS: Anion Gap 5 (5-15); BUN 20 mg/dL (7-18); Calcium,Total 9.5 mg/dL (8.5-10.1); Chloride 100 mmol/L (98-107); Creatinine, Serum 1.05 mg/dL (0.55-1.02); EST Glomerular Filtration Rate 53 mL/min (>60); Est Glom Filt Rate - Afr Amer 65 mL/min (>60); Glucose 269 mg/dL (74-106); Potassium 4.5 mmol/L (3.5-5.1); Sodium Level 136 mmol/L (136-145)
== END ==
PROVIDERS: PCP Family Medicine; Referring Provider Family Medicine; Visit Provider Family Medicine
DX: I10 Essential (primary) hypertension (principal)
CPT/HCPCS: 36415; 80048

== ENCOUNTER 2020-11-07 16:15 | Outpatient (RCR) | payer MEDICARE, SELFPAY ==
[2020-07-25 10:05] VITALS: BMI 24.1
== END 2020-11-07 23:59 ==
LOC: IMMUN 16:15
PROVIDERS: PCP Family Medicine; Referring Provider Family Medicine; Visit Provider Family Medicine
DX: Z23 Encounter for immunization (principal)
CPT/HCPCS: 0011A; 0012A

== ENCOUNTER → 2021-05-06 09:04 | Outpatient (CLI) | payer MEDICARE, SELFPAY ==
[2020-07-25 10:05] VITALS: BMI 24.1
[2021-05-06 10:17] LABS: Anion Gap 8 (5-15); BUN 19 mg/dL (7-18); Calcium,Total 9.4 mg/dL (8.5-10.1); Chloride 99 mmol/L (98-107); Cholesterol 220 mg/dL (200); Creatinine, Serum 1.12 mg/dL (0.55-1.02); EST Glomerular Filtration Rate 50 mL/min (>60); Est Glom Filt Rate - Afr Amer 60 mL/min (>60); Glucose 261 mg/dL (74-106); High Density Lipoprotein 96 mg/dL; Potassium 4.3 mmol/L (3.5-5.1); Sodium Level 133 mmol/L (136-145); Triglycerides 105 mg/dL; Very Low Density Lipoprotein 21 mg/dL (5-40)
[2021-05-06 10:28] LABS: Microalbumin,Random Urine < 5.0 mg/L (NO RANGE EST.)
== END ==
PROVIDERS: PCP Family Medicine; Referring Provider Family Medicine; Visit Provider Family Medicine
DX: E11.9 Type 2 diabetes mellitus without complications (principal)
CPT/HCPCS: 36415; 80048; 80061; 82043; 82570

== ENCOUNTER → 2021-06-17 11:19 | Outpatient (CLI) | payer MEDICARE, SELFPAY ==
--- NOTE | 2021-06-17 11:22 | BI_ITS ---
MAMMOGRAPHY - BILATERAL SCREENING REASON FOR EXAM: Female, 80 years old. Routine annual screening examination. PERTINENT HISTORY: Non-contributory. Remote right stereotactic breast biopsy and left excisional breast biopsy. TECHNIQUE: Digital bilateral breast catie (3D mammographic acquisition) in the CC and MLO projections. 2-D mediolateral oblique (MLO) and craniocaudad (CC) views of both breasts were obtained. CAD: Full Field Digital Mammography with Computer Added Detection was performed. COMPARISON: Comparison is made with prior study dated 06/15/2020 and 05/19/2019. FINDINGS: Breast Composition: The breasts are heterogeneously dense, which may obscure small masses. There are no dominant masses or suspicious calcifications. Tissue clip marker is once again seen in the upper deep lateral aspect of the No other significant abnormalities are identified. There has been no significant change since the prior study. BI/SCRN MAMM (CAD)W/CATIE BILAT IMPRESSION: Stable bilateral screening mammogram. Yearly follow-up mammogram recommended. (A) ASSESSMENT CATEGORY: BIRADS Category 2: Benign. A letter regarding these results will be sent to the patient by the facility within 30 days. Approximately 10% of breast cancers are not detected by mammography. A normal mammogram should not delay biopsy of a clinically suspicious abnormality. [id number] Electronically Signed: Patricio Quarles MD at 12:10 EDT , Service support ,
== END ==
PROVIDERS: PCP Family Medicine; Referring Provider Family Medicine; Visit Provider Family Medicine
DX: Z12.31 Encounter for screening mammogram for malignant neoplasm of breast (principal)
CPT/HCPCS: 77063; 77067

== ENCOUNTER → 2021-07-02 08:47 | Outpatient (CLI) | payer MEDICARE, SELFPAY ==
--- NOTE | 2021-07-02 08:58 | BD_ITS ---
STUDY: DUAL ENERGY X-RAY ABSORPTIOMETRY / DXA REASON FOR EXAM: Female, 80 years old. 627.8Menopausal postmenopausalBONE DENSITY REASON FOR EXAM TECHNIQUE: Bone Mineral Density (BMD) measurements of lumbar spine and bilateral hips were obtained. COMPARISON: Comparison is made with prior study dated 01/20/2019. FINDINGS: Lumbar Spine (L1-L4): g/cm2 (0.928) / T-score (-1.1) / Z-score (1.7) Findings are suggestive of osteopenia with a low fracture risk. Left Femur Total: g/cm2 (0.716) / T-score (-1.8) / Z-score (0.3) Left Femoral Neck: g/cm2 (0.607) / T-score (-2.2) / Z-score (0.2) Right Femur Total: g/cm2 (0.746) / T-score (-1.6) / Z-score (0.5) Right Femoral Neck: g/cm2 (0.584) / T-score (-2.4) / Z-score (0.0) The T-Scores on the most recent prior examination were: Lumbar Spine (L1-L4): There has been worsening of bone density since the previous examination. Left Femur Total: which represents a worsening of 0.7%. Right Femur Total: which represents a worsening of 1.4%. BD/Dexa Bone Density Study IMPRESSION: The patient is considered osteopenic as outlined below according to World Shawn Organization (WHO) criteria with a high fracture risk. There has been worsening of bone density since the previous examination. Reference Information: The T-score is the number of standard deviations above or below the standard which is normal for young adults at their peak bone mineral density. The World Health Organization (WHO) interprets the T-scores as follows: Above -1 Normal bone density Between -1 and -2.5 Osteopenia Equal to / or below -2.5 Osteoporosis As a practical clinical guideline, osteopenia may be graded as follows: Mild -1 through -1.5 Moderate -1.6 through -2.0 Severe -2.1 through -2.4 The Z-score is the number of standard deviations above or below age-matched controls. A Z-score of less than -1.5 would be considered abnormal. References: 1. NIH Osteoporosis and Related Bone Diseases www osteo.org 2. International Society for Clinical Densitometry www iscd.org 3. National Osteoporosis Foundation www nof.org Electronically Signed: Patricio Quarles MD at 9:02 EDT , Service support ,
== END ==
PROVIDERS: PCP Family Medicine; Referring Provider Family Medicine; Visit Provider Family Medicine
DX: N95.9 Unspecified menopausal and perimenopausal disorder (principal)
CPT/HCPCS: 77080

== ENCOUNTER → 2022-05-06 | Outpatient (CLI) | payer MEDICARE, SELFPAY ==
[2022-05-06 10:47] LABS: Anion Gap 6 (5-15); BUN 16 mg/dL (7-18); BUN/Creat Ratio 17.9 RATIO (10-20); Calcium,Total 9.1 mg/dL (8.5-10.1); Chloride 103 mmol/L (98-107); Cholesterol 233 mg/dL (200); Creatinine, Serum 0.89 mg/dL (0.55-1.02); EST Glomerular Filtration Rate 64 mL/min (>60); Est Glom Filt Rate - Afr Amer 78 mL/min (>60); Glucose 151 mg/dL (74-106); High Density Lipoprotein 96 mg/dL; Potassium 4.3 mmol/L (3.5-5.1); Sodium Level 138 mmol/L (136-145); Triglycerides 111 mg/dL; Very Low Density Lipoprotein 22 mg/dL (5-40)
== END | disposition home or self-care (01) ==
LOC: MTLAB 08:13
PROVIDERS: PCP Family Medicine; Referring Provider Family Medicine; Visit Provider Family Medicine
DX: I10 Essential (primary) hypertension (principal)
CPT/HCPCS: 36415; 80048; 80061

== ENCOUNTER → 2022-05-30 | Outpatient (CLI) | payer MEDICARE, SELFPAY ==
[2022-05-30 10:31] LABS: Erythrocyte Sedimentation Rate 6 mm/hr (0-30)
[2022-05-30 11:11] LABS: Rheumatoid Factor < 10.0 IU/mL (<15); Thyroid Stim Hormone (TSH) 1.41 uIU/mL (0.358-3.74)
== END | disposition home or self-care (01) ==
LOC: LAB 08:59
PROVIDERS: PCP Family Medicine; Referring Provider Ophthalmology; Visit Provider Ophthalmology
DX: H16.223 Keratoconjunctivitis sicca, not specified as Sjogren's, bilateral (principal); H26.493 Other secondary cataract, bilateral
CPT/HCPCS: 36415; 84439; 84443; 85652; 86431

== ENCOUNTER 2022-06-20 11:55 | Emergency (ER) | payer MEDICARE, SELFPAY ==
[2022-06-20 11:56] VITALS: BP 133/65; PULSE 81; RESP 18; TEMP 37.1; O2SAT 96; BMI 23.0
[2022-06-20 13:22] VITALS: BP 132/59; PULSE 73; RESP 16; O2SAT 97
--- NOTE | 2022-06-20 13:52 | EDS_ITS ---
HPI HPI - GI History of Present Illness Chief Complaint: GI Bleed Informant: patient Abdominal Pain/Flank Pain Onset: Today Context: Gradual Onset Timing: Intermittent Current Severity: Mild Maximum Severity: Mild Nausea/Vomiting/Emesis GI Symptom: Negative for Nausea or Vomiting Diarrhea/Melena/Hematochezia GI Symptom: Positive for Hematochezia; Negative for Diarrhea or Melena Associated Symptoms Associated Symptoms: Negative for Dysuria, Frequency, Hematuria or Urgency Narrative Narrative: 81-year-old female today while in the shower noticed bright red blood per rectum. She is never remembered having GI bleed before. She denies any pain. She does remember ever having colonoscopy. Denies being lightheaded or dizzy. She is on no blood thinners not even aspirin. Prior similar symptoms: No Recent Illness/Hospitalization: No PFSH PFSH Medical History (Updated 06/20/22 @ 15:[address] Manpreet Spence MD) PAUL (acute kidney injury) Chronic diastolic (congestive) heart failure Cyst of left kidney Essential (primary) hypertension Hemorrhoids Hyperlipidemia Mitral valve annular calcification Non-rheumatic mitral valve stenosis Pleural effusion on left Pneumonia Secondary pulmonary arterial hypertension SIRS (systemic inflammatory response syndrome) (11/18/19) Type 2 diabetes mellitus Home Medications metformin 500 mg tablet,extended release 24 hr 500 mg PO DAILY 04/18/14 [History Last Taken 11/17/19] amlodipine 10 mg tablet 10 mg PO DAILY 04/30/17 [History Last Taken 11/17/19] calcium carbonate 500 mg-vitamin D3 15 mcg (600 unit) tablet 1 ea PO DAILY 11/14/19 [History Last Taken 11/17/19] cholecalciferol (vitamin D3) 25 mcg (1,000 unit) tablet 1,000 unit PO DAILY 11/14/19 [History Last Taken 11/17/19] flaxseed oil 1,000 mg capsule 1,000 mg PO DAILY 11/14/19 [History Last Taken 11/17/19] cyclosporine 0.05 % eye drops in a dropperette 1 drp EACH EYE BID 11/18/19 [History Last Taken 11/17/19] lisinopril 10 mg-hydrochlorothiazide 12.5 mg tablet 1 tab PO DAILY 01/18/20 [History Last Taken Unknown] Allergy/AdvReac Type Severity Reaction Status Date / Time No Known Allergies Allergy Verified 06/20/22 11:56 Social History Smoking Status: Former smoker ROS ROS ED ROS Narrative Denies recent illness. Review of Systems ROS Unobtainable: Denies due to encephalopathy Constitutional Constitutional ED: Denies chills or fever(s) ENT ENT ED: Denies ear pain Cardiovascular Cardiovascular: Denies chest pain Respiratory/Chest Respiratory/Chest: Denies cough or dyspnea Gastrointestinal Gastrointestinal: Denies abdominal pain, constipation, melena, nausea or vomiting Genitourinary Genitourinary ED: Denies dysuria or hematuria Musculoskeletal Musculoskeletal: Denies arthralgias Integumentary Denies abscess Neurologic Neurologic: Denies headache(s) Psychiatric Psychiatric: Denies anxiety Endocrine Endocrinology: Denies polydipsia Hematologic/Lymphatic Hematologic/Lymphatic: Denies easy bleeding Allergic/Immunologic Allergic/Immunologic ED: Denies mouth swelling EXAM Physical Exam Narrative Exam Narrative: 1-year-old female no acute distress. Vital signs stable afebrile. HEENT exam unremarkable. Neck nontender. Lungs clear to auscultation bilaterally. Heart regular rhythm no murmur. Abdomen soft nontender normal bowel sounds no peritoneal signs. Patient moving all 4 extremities. Calves nontender no edema. Back unremarkable. Skin normal. No petechiae, purpura or bruising. Rectal exam done female nurse present in the room there is multiple external hemorrhoids. Nontender. Nonthrombosed. There is no blood or active bleeding. On rectal exam there is no blood or clots. No stool. The limited stool there is its brown. No melena. Const Vital Signs: 06/20/22 11:56 06/20/22 13:22 Temperature 98.7 F Temperature Source Temporal Pulse Rate 81 73 Respiratory Rate 18 16 Blood Pressure 133/65 H 132/59 H Blood Pressure Mean 87 83 Pulse Ox 96 97 Oxygen Delivery Method Room Air Room Air Positive well nourished and well developed; Negative for obese, cachectic, contractures or unkempt General Appearance ED: well developed and NAD; Negative for unkempt, cachectic, contractures or pallor Nutritional Appearance: Negative for cachectic or obese HEENT Reports moist mucous membranes normocephalic and atraumatic; Negative for trauma or tenderness Eyes PERRL and EOMs intact bilaterally General Eye ED: Negative for pale conjunctiva or scleral icterus Neck no lymphadenopathy, supple and no JVD General: Negative for tenderness Carotids: Negative for other Resp normal respiratory effort and clear to auscultation bilaterally Effort and Inspection: Negative for respiratory distress or retractions Auscultation: Negative for rales, rhonchi or wheezes Cardio regular rate, regular rhythm, S1 normal heart sound, S2 normal heart sound and no murmurs Rate: Negative for bradycardia or tachycardic Rhythm: Negative for abnormal rhythm GI non-tender, non-distended and no masses Inspection: Negative for abdominal distention Auscultation: normoactive bowel sounds Palpation: soft; Negative for tender, guarding or rigid Back/Spine no CVA tenderness General Back: Negative for CVA tenderness Cervical Spine: Negative for cervical spine tenderness Thoracic Spine / Upper Back: Negative for thoracic spinal tenderness Lumbar Spine / Lower Back: Negative for lumbar spinal tenderness Extremity full ROM General Extremety ED: Negative for edema or tenderness General Extremity: Negative for edema Neuro CN's II-XII intact bilaterally and moves all extremities Sensorium / Orientation: alert, oriented to person, oriented to place and oriented to time; Negative for orientation impaired Motor Exam: strength 5/5 throughout Psych mental status grossly normal and thought process normal Appearance: Negative for unkempt Attitude: No agitated Mood & Affect: Negative for depressed, anxious or tearful Skin no wounds General Skin Exam: Negative for jaundice or pallor Lesions: no lesions Rashes: no rashes Trauma: Negative for abrasion Nails: Negative for discolored MDM MDM MDM Narrative Medical decision making narrative: 81-year-old with rectal bleeding. Has hemorrhoids but they are not actively bleeding. Repeat exam at 3:09 p.m. Patient is doing well. She has had no further bleeding. She is comfortable being discharged home. She will follow-up with Dr. Reid who she is seen before in the past. She knows return if increased bleeding or she feels worse. Lab Data Attestation: I reviewed the patient's lab results. Lab results narrative: CBC normal white count of 10.3. H&H 14.4 and 42 which is much better than her baseline. Platelets 307. Electrolytes unremarkable gap 8 normal BUN of 14 creatinine 0.8. Glucose 141. Labs: Laboratory Results - last 24 hr 06/20/22 06/20/22 14:17 14:17 WBC 10.3 RBC 4.65 Hgb 14.4 Hct 42.9 MCV 92.3 MCH 31.0 MCHC 33.6 RDW Std Deviation 42.5 RDW Coeff of [place] 12.6 Plt Count 307 MPV 10.1 Immature Gran % (Auto) 0.600 Neut % (Auto) 70.4 H Lymph % (Auto) 20.5 [place] % (Auto) 7.4 Eos % (Auto) 0.5 Baso % (Auto) 0.6 Absolute Neuts (auto) 7.3 Absolute Lymphs (auto) 2.11 Nucleated RBC % 0 Sodium 136 Potassium 3.8 Chloride 97 L Carbon Dioxide 31.0 Anion Gap 8 BUN 14 Creatinine 0.88 Estim Creat Clear Calc 40.77 Est GFR (MDRD) Af Amer 79 Est GFR (MDRD) Non-Af 65 BUN/Creatinine Ratio 15.9 Glucose 141 H Calcium 9.7 Discharge Plan Triage Chief Complaint: GI Bleed ED Provider: Manpreet Spence Dx/Rx/DC Orders Clinical Impression: Bright red rectal bleeding, External hemorrhoids Instructions: ED Lower GI Bleeding (Stable) Prescriptions: No Action lisinopril-hydrochlorothiazide 10-12.5 mg tablet 1 tab PO DAILY metformin 500 MG tablet extended release 24 hr 500 mg PO DAILY Label Comments: amlodipine 10 MG tablet 10 mg PO DAILY flaxseed oil 1,000 MG capsule 1,000 mg PO DAILY cholecalciferol (vitamin D3) 1,000 UNIT tablet 1,000 unit PO DAILY calcium carbonate-vitamin D3 1 EACH tablet 1 ea PO DAILY cyclosporine 1 DROP dropperette 1 drp EACH EYE BID Primary Care Provider: Wilfred Prado Referrals: Wilfred Prado MD [Primary Care Provider] - As Needed Issa Reid MD [Non-Staff] - As soon as possible Activity Restrictions/Additional Instructions: You may have additional bleeding. Small amounts you can just follow-up. If it gets heavier you feel lightheaded or dizzy return to the emergency department. Follow-up with a GI doctor, Dr. Issa Reid for further evaluation and most likely you will need a colonoscopy. The bleeding may have been from your external hemorrhoids but there is no signs of bleeding now. Your blood counts are normal. This could be from an internal hemorrhoid, polyp or for some other reason. Disposition Disposition: Home, Self Care
[2022-06-20 14:27] LABS: Absolute Lymphocyte Count 2.11 X10^3/uL (0.83-4.51); Absolute Neutrophil Count 7.3 X10^3/uL (2.0-7.7); Basophil# 0.06 X10^3/uL; Basophil% 0.6 % (0-1); Eosinophil# 0.05 X10^3/uL; Eosinophils% 0.5 % (0-5); Hematocrit 42.9 % (37-47); Hemoglobin 14.4 g/dL (12.0-15.0); Lymphocyte # 2.11 X10^3/ul (0.83-4.51); Lymphocyte % 20.5 % (19-41); Mean Corp Hgb Conc 33.6 g/dL (32-36); Mean Corpuscular Volume 92.3 fL (81-99); Mean Platelet Vol. 10.1 fl (6.2-12.0); Monocyte# 0.76 X10^3/uL; Monocyte% 7.4 % (0-10); NRBC Flagged by Analyzer 0 % (0-5); Neutrophil # 7.26 X10^3/uL (2.7-7.7); Neutrophil % 70.4 % (47-70); Platelet Count 307 K/mm3 (150-450); RBC Distribution Width CV 12.6 % (11.6-14.6); RBC Distribution Width SD 42.5 fl (35.1-43.9); Red Blood Count 4.65 M/mm3 (4.2-5.4); White Blood Count 10.3 K/mm3 (4.4-11.0)
[2022-06-20 14:37] LABS: Anion Gap 8 (5-15); BUN 14 mg/dL (7-18); BUN/Creat Ratio 15.9 RATIO (10-20); Calcium,Total 9.7 mg/dL (8.5-10.1); Chloride 97 mmol/L (98-107); Creatinine, Serum 0.88 mg/dL (0.55-1.02); EST Glomerular Filtration Rate 65 mL/min (>60); Est Glom Filt Rate - Afr Amer 79 mL/min (>60); Estimated Creatinine Clearance 40.77 ml/min; Glucose 141 mg/dL (74-106); Potassium 3.8 mmol/L (3.5-5.1); Sodium Level 136 mmol/L (136-145)
[2022-06-20 15:32] VITALS: BP 126/82; PULSE 86; RESP 15; O2SAT 98
== END 2022-06-20 15:33 | disposition home or self-care (01) ==
PROVIDERS: Emergency Provider Emergency Medicine; PCP Family Medicine; Visit Provider Emergency Medicine
DX: K64.4 Residual hemorrhoidal skin tags (principal); I11.0 Hypertensive heart disease with heart failure; I50.32 Chronic diastolic (congestive) heart failure; E11.9 Type 2 diabetes mellitus without complications; K62.5 Hemorrhage of anus and rectum; E78.5 Hyperlipidemia, unspecified; Z87.891 Personal history of nicotine dependence; R11.2 Nausea with vomiting, unspecified
CPT/HCPCS: 80048; 85025; 99283; A4216

== ENCOUNTER → 2022-07-22 | Outpatient (CLI) | payer MEDICARE, SELFPAY ==
--- NOTE | 2022-07-22 07:51 | BI_ITS ---
MAMMOGRAPHY - BILATERAL SCREENING REASON FOR EXAM: Female, 81 years old. Routine annual screening examination. PERTINENT HISTORY: Non-contributory. Remote right stereotactic breast biopsy and left excisional breast biopsy. TECHNIQUE: Digital bilateral breast catie (3D mammographic acquisition) in the CC and MLO projections. 2-D mediolateral oblique (MLO) and craniocaudad (CC) views of both breasts were obtained. CAD: Full Field Digital Mammography with Computer Added Detection was performed. COMPARISON: Comparison is made with prior study of 06/17/2021 and 06/15/2020. FINDINGS: Breast Composition: The breasts are heterogeneously dense, which may obscure small masses. There are no dominant masses or suspicious calcifications. A tissue clip marker is once again seen in the upper deep lateral aspect of the right breast. No other significant abnormalities are identified. There has been no significant change since the prior study. BI/SCRN MAMM (CAD)W/CATIE BILAT IMPRESSION: Stable bilateral screening mammogram. Yearly follow-up mammogram recommended. (A) ASSESSMENT CATEGORY: BIRADS Category 2: Benign. A letter regarding these results will be sent to the patient by the facility within 30 days. Approximately 10% of breast cancers are not detected by mammography. A normal mammogram should not delay biopsy of a clinically suspicious abnormality. [id number] Electronically Signed: Patricio Quarles MD at 8:55 EDT ,
== END | disposition home or self-care (01) ==
PROVIDERS: PCP Family Medicine; Referring Provider Family Medicine; Visit Provider Family Medicine
DX: Z12.31 Encounter for screening mammogram for malignant neoplasm of breast (principal)
CPT/HCPCS: 77063; 77067

== ENCOUNTER → 2022-08-25 | Outpatient (CLI) | payer MEDICARE, SELFPAY ==
--- NOTE | 2022-08-25 08:01 | ECHOD_ITS ---
Reason For Study: MURMUR Procedure This was a 2D Doppler, Color Flow transthoracic echocardiogram. Exam performed in department. Left Ventricle Normal LV size. Left ventricular systolic function is normal. The estimated ejection fraction is 70 %. Stage 1 diastolic dysfunction. No regional wall motion abnormalities noted. Right Ventricle Normal RV size. Normal systolic function. Mitral Valve There is moderate mitral annular calcification. Tricuspid Valve Normal tricuspid valve. Aortic Valve Trisinus/trileaflet aortic valve. Mild focal aortic valve calcification. Pulmonic Valve Normal pulmonic valve. Great Vessels Normal aortic root. The pulmonary artery is normal size. Normal inferior vena cava. Pericardium/Pleural No pericardial effusion. MMode/2D Measurements & Calculations RVDd: 2.9 cm Ao root diam: 2.8 cm LAV(MOD-bp): 50.9 ml LAV(MOD-bp) Indexed: 31.6 ml/m2 LAV(MOD-sp2): 38.4 ml LAV(MOD-sp4): 69.4 ml LVAd ap4: 16.2 cm2 SV(MOD-sp4): 28.0 ml SV(sp4-el): 30.2 ml LVLd ap4: 6.3 cm EDV(MOD-sp4): 34.5 ml EDV(sp4-el): 35.4 ml LVAs ap4: 5.6 cm2 LVLs ap4: 5.0 cm ESV(MOD-sp4): 6.5 ml ESV(sp4-el): 5.2 ml EF(MOD-sp4): 81.1 % EF(sp4-el): 85.2 % LA A4 area: 21.8 cm2 LA dimension(2D): 3.5 cm RA A4 area: 11.5 cm2 Time Measurements MV dec time: 0.22 sec Doppler Measurements & Calculations MV E max deo: 149.2 cm/sec Lat Peak E' Deo: 7.3 cm/sec Med Peak E' Deo: 4.9 cm/sec MV A max deo: 204.6 cm/sec E/E' lat: 20.6 E/E' med: 30.5 MV E/A: 0.73 MV V2 max: 208.8 cm/sec Ao V2 max: 188.6 cm/sec MV max P.5 mmHg MV dec slope: 678.1 cm/sec2 Ao max P.2 mmHg MV V2 mean: 126.6 cm/sec Ao V2 mean: 123.7 cm/sec MV mean P.2 mmHg Ao mean P.3 mmHg MV V2 VTI: 59.4 cm Ao V2 VTI: 38.9 cm AV (velocity ratio): 0.73 LV V1 max: 151.9 cm/sec PA V2 max: 118.4 cm/sec LV V1 max P.3 mmHg PA V2 mean: 93.8 cm/sec LV V1 mean P.1 mmHg LV V1 mean: 103.8 cm/sec LV V1 VTI: 28.5 cm ECHO/Echo Complete Interpretation Summary Normal LV size. Left ventricular systolic function is normal. The estimated ejection fraction is 70 %. Stage 1 diastolic dysfunction. Mild focal aortic valve calcification. Ordering Physician: Dhara Harvye Referring Physician: Wilfred Prado Performed By: Lenore Knight RCS
== END | disposition home or self-care (01) ==
LOC: CVS 08:01
PROVIDERS: PCP Family Medicine; Visit Provider Physician Assistant Medical
DX: I50.32 Chronic diastolic (congestive) heart failure (principal); I34.2 Nonrheumatic mitral (valve) stenosis
CPT/HCPCS: 93306

== ENCOUNTER → 2022-12-04 | Outpatient (CLI) | payer MEDICARE, SELFPAY ==
[2022-12-04 10:02] LABS: ALB/GLOB Ratio 1.3 RATIO (0.9-2.4); AST(SGOT) 15 U/L (15-37); Alanine Aminotransfer ALT/SGPT 21 U/L (13-56); Albumin, Serum 3.7 g/dL (3.2-5.0); Alkaline Phosphatase 42 U/L (45-117); Anion Gap 7 (5-15); BUN 17 mg/dL (7-18); BUN/Creat Ratio 17.2 RATIO (10-20); Calcium,Total 9.5 mg/dL (8.5-10.1); Chloride 101 mmol/L (98-107); Cholesterol 241 mg/dL (200); Creatinine, Serum 0.99 mg/dL (0.55-1.02); EST Glomerular Filtration Rate 57 mL/min (>60); Est Glom Filt Rate - Afr Amer 69 mL/min (>60); Globulin 2.9 g/dL (2.2-4.2); Glucose 160 mg/dL (74-106); High Density Lipoprotein 105 mg/dL; Potassium 4.4 mmol/L (3.5-5.1); Protein, Total 6.6 g/dL (6.4-8.2); Sodium Level 137 mmol/L (136-145); Triglycerides 80 mg/dL; Very Low Density Lipoprotein 16 mg/dL (5-40)
== END | disposition home or self-care (01) ==
LOC: MFPLAB 08:16
PROVIDERS: PCP Family Medicine; Referring Provider Family Medicine; Visit Provider Family Medicine
DX: E78.5 Hyperlipidemia, unspecified (principal)
CPT/HCPCS: 36415; 80053; 80061

== ENCOUNTER → 2023-06-15 | Outpatient (CLI) | payer MEDICARE, SELFPAY ==
[2023-06-15 10:47] LABS: Hemoglobin A1c 6.5 % (3.8-5.6)
[2023-06-15 11:30] LABS: Anion Gap 6 (5-15); BUN 15 mg/dL (7-18); BUN/Creat Ratio 17.4 RATIO (10-20); Calcium,Total 9.1 mg/dL (8.5-10.1); Chloride 104 mmol/L (98-107); Cholesterol 219 mg/dL (200); Creatinine, Serum 0.86 mg/dL (0.55-1.02); EST Glomerular Filtration Rate 67 mL/min (>60); Est Glom Filt Rate - Afr Amer 81 mL/min (>60); Glucose 168 mg/dL (74-106); High Density Lipoprotein 100 mg/dL; Potassium 4.3 mmol/L (3.5-5.1); Sodium Level 135 mmol/L (136-145); Triglycerides 85 mg/dL; Very Low Density Lipoprotein 17 mg/dL (5-40)
[2023-06-15 11:56] LABS: Microalbumin,Random Urine < 5.0 mg/L (NO RANGE EST.)
== END | disposition home or self-care (01) ==
LOC: MFPLAB 08:31
PROVIDERS: PCP Family Medicine; Visit Provider Family Medicine
DX: E11.9 Type 2 diabetes mellitus without complications (principal)
CPT/HCPCS: 36415; 80048; 80061; 82043; 82570; 83036

== ENCOUNTER → 2023-07-23 | Outpatient (CLI) | payer MEDICARE, SELFPAY ==
--- NOTE | 2023-07-23 09:41 | BI_ITS ---
MAMMOGRAPHY - BILATERAL SCREENING REASON FOR EXAM: Female, 82 years old. Routine annual screening examination. PERTINENT HISTORY: History of left excisional breast biopsy and right stereotactic breast biopsy. TECHNIQUE: Digital bilateral breast catie (3D mammographic acquisition) in the CC and MLO projections. 2-D mediolateral oblique (MLO) and craniocaudad (CC) views of both breasts were obtained. CAD: Full Field Digital Mammography with Computer Added Detection was performed. COMPARISON: Comparison is made with prior examination dated July 22, 2022 and June 17, 2021. FINDINGS: Breast Composition: The breasts are heterogeneously dense, which may obscure small masses. There are no dominant masses or suspicious calcifications. A tissue clip marker is seen in the upper lateral portion of the left breast. No other significant abnormalities are identified. There has been no significant change since the prior study. BI/SCRN MAMM (CAD)W/CATIE BILAT IMPRESSION: Stable bilateral screening mammogram. Yearly follow-up mammogram recommended. (A) ASSESSMENT CATEGORY: BIRADS Category 2: Benign. A letter regarding these results will be sent to the patient by the facility within 30 days. Approximately 10% of breast cancers are not detected by mammography. A normal mammogram should not delay biopsy of a clinically suspicious abnormality. [id number] Electronically Signed: Patricio Quarles MD at 10:22 EDT ,
== END | disposition home or self-care (01) ==
LOC: OPBI 09:39
PROVIDERS: PCP Family Medicine; Referring Provider Family Medicine; Visit Provider Family Medicine
DX: Z12.31 Encounter for screening mammogram for malignant neoplasm of breast (principal)
CPT/HCPCS: 77063; 77067

== ENCOUNTER → 2023-12-15 | Outpatient (CLI) | payer MEDICARE, SELFPAY ==
--- NOTE | 2023-12-15 15:06 | NEURO ---
NCS and/or EMG Patient Report Ordering Doctor: Wilfred Prado DATE OF SERVICE: 12/15/23 Clinical Summary: 83 year old female patient with symptoms of left upper extremity numbness and tingling. Nerve Conduction Studies Summary: The left median-D2 SNAP distal latency was prolonged. The left median-APB CMAP distal latency was prolonged. The left median motor conduction velocity was reduced in the forearm segment. The left ulnar motor conduction velocity was reduced across the elbow. The left ulnar-ADM CMAP amplitude dropped 10.4% across the elbow segment, indicative of partial motor conduction block. Needle Examination Summary: Needle examination of select muscles of the left upper extremity demonstrated a higher proportion of motor unit action potentials with reduced recruitment, increased amplitude, increased duration, and polyphasia in the left abductor pollicis brevis muscle. Impression: There is electrodiagnostic evidence of the following - 1) Severe, left median mononeuropathy at the wrist (carpal tunnel syndrome), with secondary motor fiber axonal loss 2) Left ulnar mononeuropathy at the elbow, with demyelinating features. Multi Select Codes Neurology Neurology Interp Codes: 89787-33 Musc test done w/n test comp (interp) (1) and 33878-98 Nrv cndj tst 5-6 studies (interp)
== END | disposition home or self-care (01) ==
PROVIDERS: PCP Family Medicine; Referring Provider Family Medicine; Visit Provider Family Medicine
DX: M54.2 Cervicalgia (principal); G56.90 Unspecified mononeuropathy of unspecified upper limb
CPT/HCPCS: 95886; 95909

== ENCOUNTER 2024-03-02 11:30 | Outpatient (RCR) | payer MEDICARE, SELFPAY ==
--- NOTE | 2024-02-03 14:42 | HP.OTEVAL ---
Patient's Visit Information Visit Information Visit Information: CHANNING JEFFERY is a 83 year old F, referred to Occupational Therapy by Dr. Caleb Paulson DO, with a diagnosis of Carpal Tunnel Syndrome, Left upper limb. Date of Evaluation: 02/03/24 Occupational Therapist: Shaye Bain Subjective Subjective: This 83 year old female presents for OT eval due to carpal tunnel sx 01/19/24 LUE questionable date pt and unable to remember exact date. per stitches came out x1 week ago from yesterday. pt had symptoms approx 6 months before deciding to have the surgery. Pt is R hand dominant. pt presents for eval at this time due to decreased use of L hand during functional daily tasks. Objective Objective/Observation: pt presents this date with . carpal tunnel sx stitches removed skin well approximated and healed at this time. pt with hx of arthritis and digit and wrist joint deformity noted and is baseline for pt. pt denies pain at rest. limitations in ROM of wrist flex/ext as well as ulnar/radial deviation. ROM Shoulder: wfl Elbow: wfl Forearm: wfl Wrist: L 45/55 R 60/60 Opposition: wfl able to oppose to D5 PIP: D2 0/25 ROM Comments: L hand ulnar deviation 45 radial deviation 15 R hand ulnar deviation 15 radial deviation 15 (limited by arthritis ) L hand D2 2cm from full fist and D3 is 3 cm from full fist Strength [employer]: R 5 pounds L 5 pounds Lateral Pinch: R 0 pounds L 0 pounds Tripod Pinch: R 0 pounds L 0 pounds Quick DASH-Disab of Arm,Shoulder& Hand Quick DASH Score: 29.5450 Goals Goal:: pt will increase L wrist flex/ext equal to non affected UE (60/60) in order to return to day to day tasks within 6 weeks Goal:: pt will demonstrate the ability to manage 5/5 buttons/ snaps within 6 weeks Goal:: pt will demonstrate / verbalize 100% accuracy in proper joint protection and positioning during day to day tasks by 3rd session Goal:: pt/ caregiver will demonstrate 100% accuracy in ROM and scar massage HEP program by second session Goal:: pt will score improved quick dash score improving by 10 or more points in order to increase pt perceived use of hand within 6 weeks Rehabilitation General Assessment: This female with onset of symptoms approx 6 month before surgery had the carpal tunnel release complete to L UE. pt presents at this time with stitches removed skin well approximated. pt with limitations in wrist and digit ROM. possible digit ROM baseline due to arthritis of hands. This pt denies pain at rest and denies numbness or tingling. OT services required in order to decrease scar formation and adhesion, improve ROM, and return to use of hand on day to day basis. Rehabilitation Potential: Good Anticipated Interventions Anticipated Interventions: A/AAROM/PROM, Strengthening, Scar Care, Massage, Triggerpoint Release, Desensitization, Wound Care, Modalities, Joint Protection/Energy Conservation, Education re assistive Equipment, Education re Diagnosis, Education re Self Massage Techniques and Home Program Visit Plan Frequency: 1-2x /Week Duration: 6 Weeks General Plan: AROM/ AAROM/ PROM modalities scar massage TEXT: Thank you for the opportunity to evaluate your patient. For Medicare and Medicare HMO plans, please review the plan of care and approve it. It will need to be FAXED BACK to us at [phone] for Medicare purposes. Please let me know if there are questions or concerns regarding this plan of care. Physician Signature: Date:
--- NOTE | 2024-03-02 14:20 | HP.OTDCSUM ---
Discharge Summary D/C Summary: It has been my pleasure to treat CHANNING JEFFERY under orders from Dr. Caleb Paulson DO, for the diagnosis of Carpal Tunnel Syndrome, Left upper limb for a total of 8 visit(s). Please see the following information for a summary of their discharge status. Objective Objective/Function: wrist: 60/55 Goals Patient Goals: Regain Mobility, Regain Strength, Decrease Swelling/Stiffness, Use Hand/Wrist/Arm Normally Again, Increase ROM, Be More Independent in ADLS, Resume Former Household Responsibilities (Cooking,Cleaning,Yard, etc.) and Resume Hobbies Goal:: pt will increase L wrist flex/ext equal to non affected UE (60/60) in order to return to day to day tasks within 6 weeks now 60/55 Goal:: pt will demonstrate the ability to manage 5/5 buttons/ snaps within 6 weeks goal met Goal:: pt will demonstrate / verbalize 100% accuracy in proper joint protection and positioning during day to day tasks by 3rd session goal met Goal:: pt/ caregiver will demonstrate 100% accuracy in ROM and scar massage HEP program by second session goal met Goal:: pt will score improved quick dash score improving by 10 or more points in order to increase pt perceived use of hand within 6 weeks on eval was 29.54 and is now 15.90 goal met Plan Plan: discharge D/C Information d/c sentence: If there are questions or concerns regarding this patient's occupational therapy, please fell free to call me at [phone]. Thank you for the referral of this patient. Sincerely, Shaye Bain
--- NOTE | 2024-03-02 14:21 | HP.OT.NRP ---
Patient Information Patient Information: CHANNING JEFFERY was seen in my office for initial evaluation on 02/03/24. The following Plan of Care was established for this patient: POC Established Initial Frequency: 1-2x /Week Initial Duration: 6 Weeks Plan: discharge Anticipated Interventions Anticipated Interventions: A/AAROM/PROM, Strengthening, Scar Care, Massage, Triggerpoint Release, Desensitization, Wound Care, Modalities, Joint Protection/Energy Conservation, Education re assistive Equipment, Education re Diagnosis, Education re Self Massage Techniques and Home Program Last Seen Last Seen: This patient was last seen in our office 03/02/24. Pertinent comments regarding their Occupational therapy will appear below: This female pt seen s/p carpal tunnel release for ROM, strengthening dexterity as well as pain management. Pt has progressed in POC since SOC and has improved in wrist flex as well as extension. gains made in overall use of hand during functional daily tasks. pt with improved dexterity able to manage fasteners for clothing items. improvement in quick dash score indicating increased use of L hand during daily functional tasks. discharge at this time with pt in agreeance. At this point I will be discontinuing this patient from occupational therapy. I would be happy to see this patient again in the future if found appropriate by the physician. Thank you! Shaye Bain
== END 2024-03-02 19:00 | disposition home or self-care (01) ==
LOC: OT 11:30
PROVIDERS: PCP Family Medicine; Referring Provider Orthopaedic Surgery; Visit Provider Orthopaedic Surgery
DX: G56.02 Carpal tunnel syndrome, left upper limb (principal)
CPT/HCPCS: 97110; 97140; 97165; 97530

== ENCOUNTER → 2024-03-16 | Outpatient (CLI) | payer MEDICARE, SELFPAY ==
--- NOTE | 2024-03-16 13:08 | RAD_ITS ---
STUDY: X-RAY - LUMBAR SPINE REASON FOR EXAM: Female, 83 years old. Back pain. TECHNIQUE: 4 view(s) of the lumbar spine were obtained. COMPARISON: None FINDINGS: Osteopenia. Normal lumbar lordosis. Mild rotatory levoscoliosis. Abdominal millimeters of anterolisthesis of L2 on L3 and 7 mm of anterolisthesis of L3 on L4. Diffuse moderate to marked lower thoracic and lumbosacral facet sclerosis. Endplate concavities compatible with osteoporosis. Diffuse intervertebral disc space narrowing with osteophyte formation most marked at L1-2 through L5-S1. Marked vascular calcification. RAD/L/S Spine Min 4 Views IMPRESSION: Osteopenia with moderate to marked lower thoracic and lumbosacral spondylosis. Electronically Signed: Daniel Mei MD at 15:23 EDT ,
== END | disposition home or self-care (01) ==
LOC: MTRAD 13:07
PROVIDERS: PCP Family Medicine; Referring Provider Family Medicine; Visit Provider Family Medicine
DX: M54.9 Dorsalgia, unspecified (principal)
CPT/HCPCS: 72110

== ENCOUNTER 2024-03-31 10:50 | Emergency (ER) | payer MEDICARE, SELFPAY ==
[2024-03-31 10:51] VITALS: BP 140/66; PULSE 86; RESP 15; TEMP 36.2; O2SAT 97
[2024-03-31 10:54] VITALS: BMI 19.5
--- NOTE | 2024-03-31 11:35 | EX.ED.DYSGE1 ---
HPI <LINA Berg - Last Filed: 03/31/24 13:04> History of Present Illness Chief Complaint: Lower Extremity Injury Narrative Narrative: 83-year-old female has had bilateral low back pain over the last 2 months. She also gets pain in the right lateral thigh. There was no fall or injury. She saw Dr. Prado and had lumbar x-rays showing arthritis. She takes Tylenol every 6 hours and was started on gabapentin 100 mg 3 times a day. This did not seem to help so it was increased to 300 mg 3 times a day a week ago. Earlier this week she was staying in bed due to the pain but today has been able to get up and ambulate but since she still had pain her brought her in for evaluation. She has no weakness, numbness or tingling, saddle anesthesia or bladder bowel incontinence. No fever, chills, abdominal pain or urinary symptoms. She states an orthopedic doctor ordered an MRI of her spine that is pending insurance approval. She had a lumbar surgery in 1995. [facility] <LINA Berg - Last Filed: 03/31/24 13:04> [facility] Medical History Dementia Chronic diastolic (congestive) heart failure Hemorrhoids Type 2 diabetes mellitus Hyperlipidemia Essential (primary) hypertension Cyst of left kidney Pleural effusion on left Pneumonia Secondary pulmonary arterial hypertension Non-rheumatic mitral valve stenosis Mitral valve annular calcification PAUL (acute kidney injury) SIRS (systemic inflammatory response syndrome) (11/18/19) Home Medications ?Medication ?Instructions ?Recorded ?Last Taken ?Type metformin 500 mg tablet,extended 500 mg PO DAILY 04/18/14 11/17/19 History release 24 hr amlodipine 10 mg tablet 10 mg PO DAILY 04/30/17 11/17/19 History cholecalciferol (vitamin D3) 25 1,000 unit PO DAILY 11/14/19 11/17/19 History mcg (1,000 unit) tablet flaxseed oil 1,000 mg capsule 1,000 mg PO DAILY 11/14/19 11/17/19 History lisinopril 10 1 tab PO DAILY 01/18/20 Unknown History mg-hydrochlorothiazide 12.5 mg tablet ezetimibe 10 mg tablet (Zetia) 10 mg PO DAILY 08/11/22 Unknown History calcium carbonate 500 mg-vitamin 1 tab PO DAILY 02/10/23 Unknown History D3 15 mcg (600 unit) tablet omega 8-gie-uql-fish oil 300 1 cap PO DAILY 02/10/23 Unknown History mg-1,000 mg capsule (Fish Oil) gabapentin 300 mg capsule 300 mg PO TID 03/31/24 Unknown History hydrocodone-acetaminophen 5-325mg 1 tab PO TID PRN pain 3 days #9 03/31/24 Unknown Rx 5mg-325mg tabs Allergy/AdvReac Type Severity Reaction Status Date / Time No Known Allergies Allergy Verified 03/31/24 10:54 Social History Smoking Status: Former smoker alcohol intake: current alcohol intake frequency: a few times a week Alcohol type: wine substance use type: does not use caffeine: Yes Type: coffee Number of servings: 2 ROS <LINA Berg - Last Filed: 03/31/24 13:04> ROS ED ROS Narrative Constitutional: Negative for fever, chills, malaise. GI: Negative for abdominal pain, nausea, vomiting, diarrhea, constipation, melena, hematochezia. : Negative for dysuria, frequency. Neuro: Negative for motor/sensory dysfunction. EXAM <LINA Breg - Last Filed: 03/31/24 13:04> Physical Exam Narrative Exam Narrative: CONST: Patient sitting in no acute distress. EYES: Normal inspection. NECK: Normal inspection. RESP: No respiratory distress, CTAB. CVS: Regular rate and rhythm, no murmur, no gallop. ABD: Soft and nontender, no guarding or rebound, nondistended. Back: Normal inspection, no midline tenderness. Tender over right lateral thigh. SKIN: Color normal, no rash, warm, dry, intact. EXTREMITIES: Normal appearance of both lower extremities, no shortening or rotation. Full range of motion of the hip knees and ankles without pain. 5/5 strength in bilateral hip flexion and DF/PF. 2+ DP pulses. NEURO: Alert and answering questions appropriately. PSYCH: Normal affect. Const Vital Signs: 03/31/24 10:51 03/31/24 12:44 Temperature 97.2 F L 97.2 F L Temperature Source Temporal Pulse Rate 86 73 Respiratory Rate 15 16 Blood Pressure 140/66 H 119/61 Blood Pressure Mean 90 80 Pulse Ox 97 93 Oxygen Delivery Method Room Air <Dr. Wei Son DO - Last Filed: 03/31/24 17:08> Physical Exam Const Vital Signs: 03/31/24 10:51 03/31/24 12:44 Temperature 97.2 F L 97.2 F L Temperature Source Temporal Pulse Rate 86 73 Respiratory Rate 15 16 Blood Pressure 140/66 H 119/61 Blood Pressure Mean 90 80 Pulse Ox 97 93 Oxygen Delivery Method Room Air MDM <LINA Berg - Last Filed: 03/31/24 13:04> [facility] Narrative Medical decision making narrative: History gathered from: Patient and spouse Differential: Osteoarthritis, musculoskeletal pain, sciatica, radiculopathy 83-year-old female has had 2+ months of atraumatic low back pain and right lateral thigh pain. She had outpatient x-rays and a diagnosis of arthritis and is taking Tylenol and gabapentin. She reports increased pain over the last few days without injury. She appears well and nontoxic with stable vital signs. She has no midline tenderness or step-offs. She is mildly tender over the right buttock and right lateral thigh to palpation. Lower extremity MSPs are intact. She is ambulatory. She has no red flag signs concerning for cauda equina syndrome and no indication for emergent MRI. She was treated with [place] and given a short prescription of this for home. I recommended close follow-up with her primary care doctor who has ordered an MRI. I discussed that physical therapy may be beneficial. Patient and family were comfortable with this plan and she was discharged in stable condition. Lumbar x-rays on 03/16/2024 showed osteopenia with moderate to marked lower thoracic and lumbosacral spondylosis. <Dr. Wei Son, - Last Filed: 03/31/24 17:08> [facility] Treatment and Re-Evaluation :: I have personally performed a face to face assessment of the patient and have reviewed the SUKH Note. I performed a substantive portion of the visit including all aspects of the following. My mack findings include: History: Patient presents with back pain that has been getting worse over the past 2 weeks. Patient states the pain is constant. Patient describes it as sharp and burning. Patient states it is mainly over the right lower lumbar area but does radiate down her right leg. Patient states it is worse with palpation. Patient is nothing seems to help with it. Patient denies any bowel or bladder changes. Patient denies any paresthesias or weakness. Patient denies any saddle anesthesia. Exam: Vital signs are stable. Patient is afebrile. Patient is in no acute distress. Musculoskeletal exam reveals tenderness over the right lumbar paraspinal muscles and right posterior hip area along the sciatic nerve. There is no bony crepitance or step-off. There is no deformity noted. Range of motion of the lumbar spine was limited in all motions of the lumbar spine secondary to pain. Strength is 5/5 bilaterally in the lower extremities. There are no apparent sensory deficits noted. Deep tendon reflexes are 2/4 bilaterally in the lower extremities. Medical Decision Making: Patient was given a dose of [place] here. Patient was given a dose of Zofran here. Patient has had x-rays which did not show any acute fracture or spondylolisthesis recently. Patient is being scheduled for an MRI but this has been delayed due to her insurance company. Patient was given a prescription for a short course of [place]. Patient and family were advised that this is most likely sciatica pain. Patient and family were instructed to continue using gabapentin as prescribed. Family was instructed to follow-up with her primary care physician in 5 to 7 days for further evaluation. Patient and family understand and are agreeable with this plan. All questions were answered. Discharge Plan Triage Chief Complaint: Lower Extremity Injury ED Midlevel Provider: Marlena Alicia ED Provider: Wei Son Dx/Rx/DC Orders Clinical Impression: Low back pain, Essential (primary) hypertension Instructions: Back Basics: A Healthy Spine Prescriptions: New hydrocodone-acetaminophen 5-325 mg tablet 1 tab PO TID PRN (Reason: pain) 3 Days Qty: 9 0RF No Action lisinopril-hydrochlorothiazide 10-12.5 mg tablet 1 tab PO DAILY ezetimibe [Zetia] 10 mg tablet 10 mg PO DAILY omega 7-spa-qal-fish oil [Fish Oil] 300-1,000 mg capsule 1 cap PO DAILY metformin 500 MG tablet extended release 24 hr 500 mg PO DAILY Patient Comments: amlodipine 10 MG tablet 10 mg PO DAILY flaxseed oil 1,000 MG capsule 1,000 mg PO DAILY cholecalciferol (vitamin D3) 1,000 UNIT tablet 1,000 unit PO DAILY calcium carbonate-vitamin D3 500 mg-15 mcg (600 unit) tablet 1 tab PO DAILY gabapentin 300 mg capsule 300 mg PO TID Primary Care Provider: Wilfred Prado Referrals: Wilfred Prado MD [Primary Care Provider] - Activity Restrictions/Additional Instructions: I prescribed [place] for breakthrough pain. I recommend close follow-up with Dr. Prado. You may benefit from physical therapy for this issue. Print Language: Italian Disposition Disposition: Home, Self Care Discharge Date/Time: 03/31/24 13:10
[2024-03-31] MEDS: Ondansetron ODT 4 MG Tablet PO (11:50)
[2024-03-31] MEDS: HYDROcodone Bitartrate/Apap 5/325 Tablet PO (11:50)
[2024-03-31 12:44] VITALS: BP 119/61; PULSE 73; RESP 16; TEMP 36.2; O2SAT 93
== END 2024-03-31 13:10 | disposition home or self-care (01) ==
LOC: ED 12:06
PROVIDERS: Emergency Provider Emergency Medicine; PCP Family Medicine; Visit Provider Emergency Medicine
DX: M54.50 Low back pain, unspecified (principal); I11.0 Hypertensive heart disease with heart failure; I50.32 Chronic diastolic (congestive) heart failure; E11.9 Type 2 diabetes mellitus without complications; E78.5 Hyperlipidemia, unspecified; Z87.891 Personal history of nicotine dependence; Z79.84 Long term (current) use of oral hypoglycemic drugs; Z79.899 Other long term (current) drug therapy
CPT/HCPCS: 99283

== ENCOUNTER 2024-04-01 08:53 | Inpatient (IN) | payer MEDICARE, SELFPAY ==
[2024-04-01 08:54] VITALS: BP 149/67; PULSE 77; RESP 18; TEMP 36.1; O2SAT 93; BMI 20.3
--- NOTE | 2024-04-01 09:24 | EDS_ITS ---
HPI History of Present Illness Chief Complaint: Back Detail of Chief Complaint: Back pain Informant: patient and spouse/S.O. Narrative Narrative: Patient presents with back pain that started couple months ago. No injury. Seen by her primary care physician and had x-rays that showed arthritis. Patient apparently has an MRI ordered for later this month but has not been approved by insurance yet. Patient was seen in the emergency department yesterday for the same complaint and was started on [place]. Patient had a hard time sleeping last night and was having severe pain and now pain radiating down both legs. She has had no bowel movement in the last 4 days. She is urinating normally. Patient denies abdominal pain or vomiting. She is able to ambulate with some assistance. She denies loss of sensation in the groin. Patient rates her pain a 10 out of 10. Denies urinary symptoms. She has had no fever. [facility] Medical History Dementia Chronic diastolic (congestive) heart failure Hemorrhoids Type 2 diabetes mellitus Hyperlipidemia Essential (primary) hypertension Cyst of left kidney Pleural effusion on left Pneumonia Secondary pulmonary arterial hypertension Non-rheumatic mitral valve stenosis Mitral valve annular calcification PAUL (acute kidney injury) SIRS (systemic inflammatory response syndrome) (11/18/19) Home Medications ?Medication ?Instructions ?Recorded ?Last Taken ?Type metformin 500 mg tablet,extended 500 mg PO DAILY 04/18/14 11/17/19 History release 24 hr amlodipine 10 mg tablet 10 mg PO DAILY 04/30/17 11/17/19 History cholecalciferol (vitamin D3) 25 1,000 unit PO DAILY 11/14/19 11/17/19 History mcg (1,000 unit) tablet flaxseed oil 1,000 mg capsule 1,000 mg PO DAILY 11/14/19 11/17/19 History lisinopril 10 1 tab PO DAILY 01/18/20 Unknown History mg-hydrochlorothiazide 12.5 mg tablet ezetimibe 10 mg tablet (Zetia) 10 mg PO DAILY 08/11/22 Unknown History calcium carbonate 500 mg-vitamin 1 tab PO DAILY 02/10/23 Unknown History D3 15 mcg (600 unit) tablet omega 7-wiv-sle-fish oil 300 1 cap PO DAILY 02/10/23 Unknown History mg-1,000 mg capsule (Fish Oil) gabapentin 300 mg capsule 300 mg PO TID 03/31/24 Unknown History hydrocodone-acetaminophen 5-325mg 1 tab PO TID PRN pain 3 days #9 03/31/24 Unknown Rx 5mg-325mg tabs Allergy/AdvReac Type Severity Reaction Status Date / Time No Known Allergies Allergy Verified 04/01/24 08:54 Social History Smoking Status: Former smoker alcohol intake: current alcohol intake frequency: a few times a week Alcohol type: wine substance use type: does not use caffeine: Yes Type: coffee Number of servings: 2 ROS ROS ED Review of Systems ROS Unobtainable: other Constitutional Constitutional ED: Reports lethargy; Denies chills, fever(s), sweats or weight loss Eyes Eyes: Denies blurry vision, change in vision or diplopia ENT ENT ED: Denies rhinorrhea or sore throat Cardiovascular Cardiovascular: Denies chest pain, orthopnea or racing heartbeat Respiratory/Chest Respiratory/Chest: Denies cough, dyspnea, dyspnea on exertion, orthopnea or sputum Gastrointestinal Gastrointestinal: Reports constipation; Denies abdominal pain, diarrhea, nausea or vomiting Genitourinary Genitourinary ED: Denies dysuria, hematuria or urinary frequency Musculoskeletal Musculoskeletal: Reports back pain; Denies arthralgias, myalgias or neck pain Integumentary Denies abscess, Abrasions or rash Neurologic Neurologic: Denies headache(s) or weakness Psychiatric Psychiatric: Denies anxiety, depression or suicidal thoughts Endocrine Endocrinology: Denies polydipsia, polyphagia or polyuria Hematologic/Lymphatic Hematologic/Lymphatic: Denies easy bleeding, easy bruising or lymphadenopathy Allergic/Immunologic Allergic/Immunologic ED: Denies mouth swelling, tongue swelling or urticaria EXAM Physical Exam Const Vital Signs: 04/01/24 08:54 Temperature 96.9 F L Temperature Source Temporal Pulse Rate 77 Respiratory Rate 18 Blood Pressure 149/67 H Blood Pressure Mean 94 Pulse Ox 93 Positive well nourished and well developed General Appearance ED: well developed and NAD HEENT Reports TM's clear and moist mucous membranes normocephalic and atraumatic; Negative for trauma or tenderness Tympanic Membrane ED: Yes TM's clear Eyes PERRL and EOMs intact bilaterally General Eye ED: Negative for pale conjunctiva or scleral icterus Neck no lymphadenopathy, supple and no JVD General: Negative for tenderness Chest Wall inspection of chest normal and palpation of chest normal Chest: Negative for tenderness Resp normal respiratory effort and clear to auscultation bilaterally Effort and Inspection: Negative for respiratory distress or pain with movement Auscultation: Negative for rhonchi, wheezes or diminished lung sounds Cardio regular rate, regular rhythm, S1 normal heart sound, S2 normal heart sound and no murmurs Peripheral Pulses: pulses 2+ throughout GI normal to inspection, nondistended, normoactive bowel sounds, soft to palpation, non-tender, non-distended and no masses GI Narrative: Rectal exam performed. She did have sensation. She had did have rectal tone. There was some hard stool in the rectal vault but unable to remove with digit. Back/Spine no CVA tenderness and no thoracic nor lumbar tenderness Back/Spine Narrative: Diffuse tenderness over lumbar spine and lumbar paraspinal musculature. Positive straight leg raise on the left while supine at about 45 degrees. Deep tendon reflexes plus 1 out of 4 bilaterally at the patella and Achilles. She has normal L5 extension bilaterally. She has normal sensation to light touch. Extremity normal to inspection General Extremety ED: Negative for edema General Extremity: Negative for edema Neuro oriented x3, CN's II-XII intact bilaterally, no sensory deficits noted and gait normal Sensorium / Orientation: awake, alert, oriented to person, oriented to place and oriented to time Motor Exam: strength 5/5 throughout and strength abnormal Psych mental status grossly normal Skin no rashes or lesions noted and no wounds MDM MDM MDM Narrative Medical decision making narrative: Patient presents with what sounds like lumbar radiculopathy. Seen in the emergency department yesterday. Continued pain and now pain down left leg also whereas before was only down the right leg. On exam no focal weakness noted. Patient was medicated morphine and Zofran. Basic labs were ordered and CBC with differential was unremarkable. Chemistries unremarkable. Urinalysis pending. Discussed case with hospitalist to evaluate patient for admission for intractable back pain and lumbar radiculopathy. She will require further imaging such as MRI. No red flag signs or symptoms of cauda equina. She does have some constipation. Lab Data Labs: Laboratory Results - last 24 hr 04/01/24 09:41 WBC 8.0 RBC 4.55 Hgb 13.7 Hct 41.1 MCV 90.3 MCH 30.1 MCHC 33.3 RDW Std Deviation 41.8 RDW Coeff of [place] 12.7 Plt Count 344 MPV 9.7 Immature Gran % (Auto) 0.400 Neut % (Auto) 77.9 H Lymph % (Auto) 14.1 L [place] % (Auto) 6.8 Eos % (Auto) 0.4 Baso % (Auto) 0.4 Absolute Neuts (auto) 6.2 Absolute Lymphs (auto) 1.12 Nucleated RBC % 0 Sodium 131 L Potassium 4.2 Chloride 99 Carbon Dioxide 30.0 Anion Gap 2 L BUN 15 Creatinine 0.76 Estim Creat Clear Calc 43.03 Est GFR (MDRD) Af Amer 93 Est GFR (MDRD) Non-Af 77 BUN/Creatinine Ratio 19.7 Glucose 144 H Calcium 9.2 Discharge Plan Triage Chief Complaint: Back ED Provider: Lisa Lowe Dx/Rx/DC Orders Clinical Impression: Intractable back pain, Acute left lumbar radiculopathy, Constipation Prescriptions: No Action lisinopril-hydrochlorothiazide 10-12.5 mg tablet 1 tab PO DAILY ezetimibe [Zetia] 10 mg tablet 10 mg PO DAILY omega 9-yzw-smq-fish oil [Fish Oil] 300-1,000 mg capsule 1 cap PO DAILY metformin 500 MG tablet extended release 24 hr 500 mg PO DAILY Patient Comments: amlodipine 10 MG tablet 10 mg PO DAILY flaxseed oil 1,000 MG capsule 1,000 mg PO DAILY cholecalciferol (vitamin D3) 1,000 UNIT tablet 1,000 unit PO DAILY calcium carbonate-vitamin D3 500 mg-15 mcg (600 unit) tablet 1 tab PO DAILY gabapentin 300 mg capsule 300 mg PO TID hydrocodone-acetaminophen 5-325 mg tablet 1 tab PO TID PRN (Reason: pain) 3 Days Qty: 9 0RF Primary Care Provider: Wilfred Prado Referrals: Wilfred Prado MD [Primary Care Provider] - Print Language: Macanese Disposition Disposition: Acute Care Hospital [facility]
[2024-04-01] MEDS: 0.9% Normal Saline (1000mL) 1,000 ML 150 ML IV (09:33)
[2024-04-01] MEDS: Ondansetron 4 MG/2 ML Vial IV (09:33)
[2024-04-01] MEDS: Morphine 4 MG/ML Syringe IV (09:33)
[2024-04-01 09:47] LABS: Absolute Lymphocyte Count 1.12 X10^3/uL (0.83-4.51); Absolute Neutrophil Count 6.2 X10^3/uL (2.0-7.7); Basophil# 0.03 X10^3/uL; Basophil% 0.4 % (0-1); Eosinophil# 0.03 X10^3/uL; Eosinophils% 0.4 % (0-5); Hematocrit 41.1 % (37-47); Hemoglobin 13.7 g/dL (12.0-15.0); Lymphocyte # 1.12 X10^3/ul (0.83-4.51); Lymphocyte % 14.1 % (19-41); Mean Corp Hgb Conc 33.3 g/dL (32-36); Mean Corpuscular Hgb 30.1 pg (27.0-32.0); Mean Corpuscular Volume 90.3 fL (81-99); Mean Platelet Vol. 9.7 fl (6.2-12.0); Monocyte# 0.54 X10^3/uL; Monocyte% 6.8 % (0-10); NRBC Flagged by Analyzer 0 % (0-5); Neutrophil # 6.22 X10^3/uL (2.7-7.7); Neutrophil % 77.9 % (47-70); Platelet Count 344 K/mm3 (150-450); RBC Distribution Width CV 12.7 % (11.6-14.6); RBC Distribution Width SD 41.8 fl (35.1-43.9); Red Blood Count 4.55 M/mm3 (4.2-5.4)
--- NOTE | 2024-04-01 09:54 | HP.PCM.HOS_ITS ---
HPI - General General Date of Admission: 04/01/24 Date of Service: 04/01/24 Chief Complaint: Worsening low back pain with bilateral radiculopathy HPI Narrative CHANNING JEFFERY, is a 83 F who presented to [facility] ED on 04/01/2024 with worsening low back pain with bilateral radiculopathy. Saw patient at bedside in the ED, present. Patient was sitting up comfortably in bed, in no acute distress. Patient has history of dementia, was making appropriate eye contact with me and answered some but not all questions for me. Most of patient's history was gathered from her . Patient has had worsening low back pain with right-sided radiculopathy over the past several weeks. She lives at home with her and uses a walker for assistance with ambulation, but the pain had gotten to the point where she was having difficulty with moving around at all. Her PCP is Dr. Prado, and she had lumbar x-rays at the end of February that showed arthritis but no other acute changes. She was started on low-dose gabapentin 3 times a day and prescribed a short course of steroids but states this did not seem to help her at all. She came into the ED yesterday for this concern. Was noted then that an MRI had been scheduled for her later this month. She was given a dose of Pearson and Zofran and seemed to have some improvement with that, so she was discharged home. notes that she then developed new onset left sided radiculopathy this morning with worsening functional status, so they came back in for further evaluation. Notably, patient has history of low back disc issues requiring surgery back in the mid 90s; had good result with surgery per the and no significant back pain issues until a few months ago. Patient notably has had no bowel or bladder dysfunction. Strength is only slightly diminished bilaterally on exam, sensation intact. Otherwise no acute concerns at this time. Vitals in ED unremarkable. Labs with sodium 132, otherwise unremarkable. No new imaging obtained in the ED. [facility] Medical History (Updated 04/01/24 @ 16:[address] Wilbur Brock, DO) Dementia Chronic diastolic (congestive) heart failure Hemorrhoids Type 2 diabetes mellitus Hyperlipidemia Essential (primary) hypertension Cyst of left kidney Pleural effusion on left Pneumonia Secondary pulmonary arterial hypertension Non-rheumatic mitral valve stenosis Mitral valve annular calcification PAUL (acute kidney injury) SIRS (systemic inflammatory response syndrome) (11/18/19) Home Medications ?Medication ?Instructions ?Recorded ?Last Taken ?Type metformin 500 mg tablet,extended 500 mg PO DAILY dm 04/18/14 11/17/19 History release 24 hr amlodipine 10 mg tablet 10 mg PO DAILY see physic 04/30/17 11/17/19 History cholecalciferol (vitamin D3) 25 1,000 unit PO DAILY supplement 11/14/19 11/17/19 History mcg (1,000 unit) tablet flaxseed oil 1,000 mg capsule 1,000 mg PO DAILY supplement 11/14/19 11/17/19 History lisinopril 10 1 tab PO DAILY blood pressure 01/18/20 Unknown History mg-hydrochlorothiazide 12.5 mg tablet ezetimibe 10 mg tablet (Zetia) 10 mg PO DAILY see physician 08/11/22 Unknown History calcium carbonate 500 mg-vitamin 1 tab PO DAILY supplem 02/10/23 Unknown History D3 15 mcg (600 unit) tablet omega 5-izv-jzk-fish oil 300 1 cap PO DAILY supplement 02/10/23 Unknown History mg-1,000 mg capsule (Fish Oil) gabapentin 300 mg capsule 300 mg PO TID pain 03/31/24 04/01/24 06:00 History hydrocodone-acetaminophen 5-325mg 1 tab PO TID PRN pain 3 days #9 03/31/24 04/01/24 00:10 Rx 5mg-325mg tabs cyclobenzaprine 5 mg tablet 5 mg PO TID see physician list 04/01/24 Unknown History cyclosporine 0.05 % eye drops in a 1 drp EACH EYE DAILY dry eyes 04/01/24 Unknown History dropperette (Restasis) diclofenac sodium 1 % topical gel 1 ea topical TID PRN pain 04/01/24 Unknown History (Aleve (diclofenac)) dicyclomine 20 mg tablet 20 mg PO BID abd 04/01/24 Unknown History gabapentin 100 mg capsule 100 mg PO QHS pain 04/01/24 Unknown History loratadine 10 mg tablet (Claritin) 10 mg PO DAILY allergies 04/01/24 Unknown History meloxicam 15 mg tablet 15 mg PO DAILY pain 04/01/24 Unknown History memantine 10 mg tablet 10 mg PO DAILY dementia 04/01/24 Unknown History omeprazole 20 mg capsule,delayed 20 mg PO QHS acid reflex 04/01/24 Unknown History release Allergy/AdvReac Type Severity Reaction Status Date / Time No Known Allergies Allergy Verified 04/01/24 08:54 Social History Smoking Status: Former smoker alcohol intake: current alcohol intake frequency: a few times a week Alcohol type: wine substance use type: does not use caffeine: Yes Type: coffee Number of servings: 2 ROS Review of Systems ROS Unobtainable: due to mental condition Vital Signs Vital Signs Vital Signs: 04/01/24 08:54 Temperature 96.9 F L Temperature Source Temporal Pulse Rate 77 Respiratory Rate 18 Blood Pressure 149/67 H Blood Pressure Mean 94 Pulse Ox 93 Weight Weight: 52.072 kg Body Mass Index (BMI) 20.3 Physical Exam Const alert and no apparent distress Constitutional Narrative: Elderly female, thin and somewhat chronically ill-appearing, history of dementia, alert but not answering most questions appropriately for me, otherwise sitting up comfortably in bed, in no acute distress. General Appearance: cooperative and comfortable HEENT normocephalic, head/scalp atraumatic, hearing grossly normal bilaterally, nasal mucous membranes and turbinates normal and moist oral mucous membranes Eyes PERRL, EOMs intact bilaterally and conjunctivae normal Neck full ROM Chest inspection of chest normal Resp normal respiratory effort, normal air movement, no use of accessory muscles and clear to auscultation bilaterally Cardio regular rate, regular rhythm, no murmurs and peripheral pulses 2+ throughout GI normal to inspection, nondistended, normoactive bowel sounds, soft to palpation, non-tender and non-distended Back/Spine Back/Spine Narrative: No pain to palpation of lower back. Back range of motion diminished by reported pain. Extremity normal to inspection, full ROM and no pedal edema Skin no rashes or lesions noted Neuro moves all extremities Psych mental status grossly normal Results Lab / Micro Data 04/01/24 09:41 04/01/24 09:41 Labs: Laboratory Results - last 24 hr 04/01/24 09:41: WBC 8.0, RBC 4.55, Hgb 13.7, Hct 41.1, MCV 90.3, MCH 30.1, MCHC 33.3, RDW Std Deviation 41.8, RDW Coeff of Santana 12.7, Plt Count 344, MPV 9.7, Immature Gran % (Auto) 0.400, Neut % (Auto) 77.9 H, Lymph % (Auto) 14.1 L, [place] % (Auto) 6.8, Eos % (Auto) 0.4, Baso % (Auto) 0.4, Absolute Neuts (auto) 6.2, Absolute Lymphs (auto) 1.12, Nucleated RBC % 0 Assessment & Plan Assessment/Plan (1) Intractable back pain: (2) Acute left lumbar radiculopathy: (3) Hyponatremia: (4) Dementia: (5) Debility: PLAN: Plan Patient is an 83-year-old female who presented to [facility] ED on 04/01/2024 with worsening low back pain with bilateral radiculopathy. 1. Worsening low back pain with bilateral radiculopathy; acute on chronic debility ? Admit under inpatient status to [facility]. MRI lumbar spine on admit showed acute?subacute mild L3 compression fracture with large L2-3 disc extrusion with superior migration resulting in markedly severe spinal canal stenosis and bilateral nerve root impingement. Orthopedic surgery consulted for further recommendations. PT/OT/case management consulted. Pain control with scheduled Tylenol, lidocaine patch, oxycodone as needed and IV Dilaudid as needed. Continue gabapentin 100 mg 3 times daily. 2. Mild hyponatremia ? Sodium 131 on admit, baseline sodium in normal range. Likely secondary to mild dehydration from recent poor p.o. intake. Fluid resuscitation given in the ED. Follow-up a.m. sodium level. 3. Dementia ? Alert and oriented to person and place at baseline but per has had more difficulty with maintaining conversations for the past several months. Lives at home with currently but functional status declining. PT/OT/case management following as above. Continue home memantine. Chronic medical conditions: ? Hypertension: Normotension to mild hypertension noted on admission. Continue home amlodipine, holding home lisinopril?hydrochlorothiazide for now, resume as needed. ? Hyperlipidemia: Continue home Zetia. ? Type 2 diabetes mellitus: On home metformin 500 mg daily. Blood sugar 144 on admit. Last A1c 6.5% in 05/2023. Patient with poor p.o. intake recently per . Will hold on starting sliding scale insulin with meals or checking regular blood sugars for now, monitor blood sugar on daily BMP. ? GERD: Continue home statin. ? Allergies: Continue home loratadine. DVT prophylaxis: Lovenox CODE STATUS: Full code, verified Expected disposition: TBD Total clinical time spent by myself addressing the patient's medical issues, reviewing all the data, and collaborating with patient's care team: 55 minutes. Charges/Coding Visit Charges Inpatient E&M: 72729 Init Hosp L2
[2024-04-01 09:59] LABS: Anion Gap 2 (5-15); BUN 15 mg/dL (7-18); BUN/Creat Ratio 19.7 RATIO (10-20); Calcium,Total 9.2 mg/dL (8.5-10.1); Chloride 99 mmol/L (98-107); Creatinine, Serum 0.76 mg/dL (0.55-1.02); EST Glomerular Filtration Rate 77 mL/min (>60); Est Glom Filt Rate - Afr Amer 93 mL/min (>60); Estimated Creatinine Clearance 43.03 ml/min; Glucose 144 mg/dL (74-106); Potassium 4.2 mmol/L (3.5-5.1); Sodium Level 131 mmol/L (136-145)
--- NOTE | 2024-04-01 09:59 | MRI_ITS ---
HISTORY: Worsening low back pain with bilateral radiculopathy. TECHNIQUE: Multiplanar and multisequence MR images of the lumbar spine were obtained without intravenous contrast. 153 images. COMPARISON: 03/16/2024. FINDINGS: Motion artifact lowers the sensitivity of the examination. VERTEBRAE: 20-30% loss of height in the L3 vertebral body with bone marrow edema and mild retropulsion into the spinal canal. Mild posterior soft tissue edema at L2 and L3. Hemangioma incidentally noted in the L2 vertebral body. Minimal linear sacral Tarlov cyst at S2. ALIGNMENT: No anterior or posterior subluxation. Mild scoliosis. CONUS: Normal morphology and position of the conus medullaris at T12-L1. INTERVERTEBRAL DISCS: T12-L1: No significant posterior disc protrusion, central canal stenosis, or foraminal narrowing based on the sagittal images. Small right perineural cyst present. L1-2: Mild disc bulge with facet arthropathy resulting in mild central canal stenosis and bilateral foraminal narrowing. L2-3: 14 mm central and right paracentral disc extrusion with superior migration in combination with moderate facet arthropathy and the mildly retropulsed L3 compression fracture resulting in moderately severe central canal stenosis, bilateral L3 and probable bilateral L4 nerve root impingement, and mild-moderate bilateral foraminal narrowing with right L2 nerve root abutment. L3-4: Posterior disc bulge osteophyte complex with facet arthropathy superimposed on a developmentally narrow spinal canal resulting in moderate central canal stenosis and bilateral foraminal narrowing. L4-5: Mild right paracentral disc protrusion abutting the right L5 nerve root with facet arthropathy resulting in minimal narrowing of the thecal sac and mild bilateral foraminal narrowing. L5-S1: Transitional lumbosacral anatomy with tapering of the spinal canal. No significant posterior disc, central canal stenosis, or foraminal narrowing. SOFT TISSUES: Incompletely imaged large left renal cyst. Colonic diverticulosis observed. MRI/Spine Lumbar (Routine) IMPRESSION: Motion artifact. Acute-subacute mild L3 compression fracture with a large L2-3 disc extrusion with superior migration resulting in markedly severe spinal canal stenosis and bilateral nerve root impingement as above. Multilevel degenerative disc disease with moderate spinal canal stenosis at L3-4. Electronically Signed: Aydee Felipe MD at 12:36 EDT ,
[2024-04-01 10:28] VITALS: BP 142/77; PULSE 76; RESP 16; TEMP 36.2; O2SAT 94
[2024-04-01 10:38] VITALS: BMI 19.7
--- NOTE | 2024-04-01 10:42 | CASEMGMT ---
Social Work- Pt has directives naming , Heath, as primary agent and Laura, daughter, as secondary agent in chart. MARKEL Brown
[2024-04-01 10:48] VITALS: BP 131/58; PULSE 69; RESP 18; TEMP 36.6; O2SAT 97
--- NOTE | 2024-04-01 11:08 | NURSING ---
pt transported in bed by tech to mri. no family bedside.
--- NOTE | 2024-04-01 12:26 | NURSING ---
called, updated when last took meds. pts verbalized baseline confusion. states dementia has increased, pt normally confused thinking people are in the house that aren't there and at times doesn't even recognize him. pt's states will be back in to see pt. bedexit maintained and emotional support given to patient.
[2024-04-01] MEDS: Lidocaine 5% Patch 1 PATCH TOPICAL (12:28)
[2024-04-01] MEDS: Calcium Carb/Vitamin D 1 TABLET Tablet PO (12:29)
[2024-04-01] MEDS: amLODIPine 10 MG Tablet PO (12:29)
[2024-04-01] MEDS: Acetaminophen 500 MG Tablet 1000 MG PO ×2 (12:30→21:04)
[2024-04-01] MEDS: Ezetimibe 10 MG Tablet PO (12:30)
[2024-04-01] MEDS: Cholecalciferol (VIT D3) 25 MCG TABLET (1,000 UNITS) PO (12:30)
--- NOTE | 2024-04-01 14:12 | CASEMGMT ---
Discharge Planning A list of SNF providers including quality and resource use data and consistent with the patient's preferred geographic location, medical needs, and insurance network was created in [facility].? This list was provided to the Loni Garnica Discharge Planning Asst.
--- NOTE | 2024-04-01 15:26 | CHAPLAIN ---
Type of Pastoral Visit _x__ Initial Visit ___ Follow-up Visit ___ On-call Visit ___ General Patient Visit ___ Spiritual Assessment ___ Family Conference ___ Bereavement ___ Rapid Response ___ Code Blue ___ Other (describe below) Pastoral Care Referral From ___ Patient ___ Family ___ Nurse ___ Physician ___ Pr Intern ___ Reprint Sorter ___ Other (describe below) Sacrament/Intervention _x__ Active listening ___ Anointing ___ Baptist ___ Bereavement ___ Communion ___ Christen exploration ___ ___ Life review _x__ Prayer ___ Reconciliation ___ Sacrament of Sick _x__ Supportive presence ___ Wedding ___ Other (describe below) Pastoral Comments patient is welcoming but as she speaks it is apparent that her thoughts are not consistent with the reality, ie thinking that she went to the hospital but is now home, that her niece went to the fair this afternoon, that her legs hurt because she worked too long today; pt is pleasant and when offered time to talk or having a prayer spoken, she asked for a prayer; she said that was nice; visit ended with offer of anything else she needed
[2024-04-01 15:33] VITALS: O2SAT 96
--- NOTE | 2024-04-01 15:44 | CASEMGMT ---
Social Work- Pt has HCPOA on file naming Heath, , as primary agent and Laura, daughter, as secondary agent. MARKEL Brown
[2024-04-01 16:29] VITALS: BP 112/57; PULSE 72; RESP 18; TEMP 36.9; O2SAT 93
--- NOTE | 2024-04-01 17:02 | CONS.ORTHO ---
HPI Consult Data Date of Consult: 04/01/24 HPI Narrative HPI Narrative: MONA JEFFERY, is a 83 F who presents With low back pain and right anterior thigh paresthesias. I was consulted for MRI findings from MRI done today. I spoke with the patient as well as her Heath to get further history. Patient has dementia and is not a good historian. Urologist says that she was fairly independent in terms of mobility about 2 to 3 months ago he started having difficulty with mobility says that he would help her ambulate by holding onto her. She never needed a cane or walker but eventually she worsened enough that she had multiple ER visits and also visit with the PCP who recommended MRI. She eventually got admitted today and got an MRI here in the hospital. Both Heath and Mona deny any obvious injuries in the last few days weeks or months. No prior lower back history [facility] Medical History (Updated 04/01/24 @ 17:[address] Yuan Tolliver MD) Dementia Chronic diastolic (congestive) heart failure Hemorrhoids Type 2 diabetes mellitus Hyperlipidemia Essential (primary) hypertension Cyst of left kidney Pleural effusion on left Pneumonia Secondary pulmonary arterial hypertension Non-rheumatic mitral valve stenosis Mitral valve annular calcification PAUL (acute kidney injury) SIRS (systemic inflammatory response syndrome) (11/18/19) Home Medications ?Medication ?Instructions ?Recorded ?Last Taken ?Type metformin 500 mg tablet,extended 500 mg PO DAILY dm 04/18/14 11/17/19 History release 24 hr amlodipine 10 mg tablet 10 mg PO DAILY see physic 04/30/17 11/17/19 History cholecalciferol (vitamin D3) 25 1,000 unit PO DAILY supplement 11/14/19 11/17/19 History mcg (1,000 unit) tablet flaxseed oil 1,000 mg capsule 1,000 mg PO DAILY supplement 11/14/19 11/17/19 History lisinopril 10 1 tab PO DAILY blood pressure 01/18/20 Unknown History mg-hydrochlorothiazide 12.5 mg tablet ezetimibe 10 mg tablet (Zetia) 10 mg PO DAILY see physician 08/11/22 Unknown History calcium carbonate 500 mg-vitamin 1 tab PO DAILY supplem 02/10/23 Unknown History D3 15 mcg (600 unit) tablet omega 4-myn-ylb-fish oil 300 1 cap PO DAILY supplement 02/10/23 Unknown History mg-1,000 mg capsule (Fish Oil) gabapentin 300 mg capsule 300 mg PO TID pain 03/31/24 04/01/24 06:00 History hydrocodone-acetaminophen 5-325mg 1 tab PO TID PRN pain 3 days #9 03/31/24 04/01/24 00:10 Rx 5mg-325mg tabs cyclobenzaprine 5 mg tablet 5 mg PO TID see physician list 04/01/24 Unknown History cyclosporine 0.05 % eye drops in a 1 drp EACH EYE DAILY dry eyes 04/01/24 Unknown History dropperette (Restasis) diclofenac sodium 1 % topical gel 1 ea topical TID PRN pain 04/01/24 Unknown History (Aleve (diclofenac)) dicyclomine 20 mg tablet 20 mg PO BID abd 04/01/24 Unknown History gabapentin 100 mg capsule 100 mg PO QHS pain 04/01/24 Unknown History loratadine 10 mg tablet (Claritin) 10 mg PO DAILY allergies 04/01/24 Unknown History meloxicam 15 mg tablet 15 mg PO DAILY pain 04/01/24 Unknown History memantine 10 mg tablet 10 mg PO DAILY dementia 04/01/24 Unknown History omeprazole 20 mg capsule,delayed 20 mg PO QHS acid reflex 04/01/24 Unknown History release Allergy/AdvReac Type Severity Reaction Status Date / Time No Known Allergies Allergy Verified 04/01/24 08:54 Social History Smoking Status: Former smoker alcohol intake: current alcohol intake frequency: a few times a week Alcohol type: wine substance use type: does not use caffeine: Yes Type: coffee Number of servings: 2 Vital Signs Vital Signs Vital Signs: 04/01/24 08:54 04/01/24 10:28 04/01/24 10:48 Temperature 96.9 F L 97.1 F L 97.8 F Temperature Source Temporal Temporal Pulse Rate 77 76 69 Respiratory Rate 18 16 18 Blood Pressure 149/67 H 142/77 H 131/58 H Blood Pressure Mean 94 98 82 Blood Pressure Source Monitor Blood Pressure Position Semi-Fowlers Blood Pressure Location Right Arm Pulse Ox 93 94 97 Oxygen Delivery Method Room Air 04/01/24 11:00 04/01/24 15:33 04/01/24 16:29 Temperature 98.4 F Temperature Source Temporal Pulse Rate 72 Respiratory Rate 18 Blood Pressure 112/57 L Blood Pressure Mean 75 Blood Pressure Source Monitor Blood Pressure Position Semi-Fowlers Blood Pressure Location Left Arm Pulse Ox 96 93 Oxygen Delivery Method Room Air Room Air Room Air Weight Weight: 111 lb 6.4 oz Body Mass Index (BMI) 19.7 Physical Exam Narrative Examination the back shows lidocaine patch in situ. Mild spinous process tenderness noticed in mid lumbar spine. Neurologic evaluation of lower extremity shows 5 x 5 power normal shows normal sensations in all dermatomes. Lab / Micro Data 04/01/24 09:41 04/01/24 09:41 Labs: Laboratory Results - last 24 hr 04/01/24 09:41: WBC 8.0, RBC 4.55, Hgb 13.7, Hct 41.1, MCV 90.3, MCH 30.1, MCHC 33.3, RDW Std Deviation 41.8, RDW Coeff of Santana 12.7, Plt Count 344, MPV 9.7, Immature Gran % (Auto) 0.400, Neut % (Auto) 77.9 H, Lymph % (Auto) 14.1 L, [place] % (Auto) 6.8, Eos % (Auto) 0.4, Baso % (Auto) 0.4, Absolute Neuts (auto) 6.2, Absolute Lymphs (auto) 1.12, Nucleated RBC % 0, Sodium 131 L, Potassium 4.2, Chloride 99, Carbon Dioxide 30.0, Anion Gap 2 L, BUN 15, Creatinine 0.76, Estim Creat Clear Calc 43.03, Est GFR (MDRD) Af Amer 93, Est GFR (MDRD) Non-Af 77, BUN/Creatinine Ratio 19.7, Glucose 144 H, Calcium 9.2 Imaging Radiology Impression Lumbar Spine MRI 04/01/24 09:59 IMPRESSION: Motion artifact. Acute-subacute mild L3 compression fracture with a large L2-3 disc extrusion with superior migration resulting in markedly severe spinal canal stenosis and bilateral nerve root impingement as above. Multilevel degenerative disc disease with moderate spinal canal stenosis at L3-4. Electronically Signed: Aydee Felipe MD at 12:36 EDT , Assessment & Plan Assessment/Plan (1) Lumbar compression fracture: QUALIFIERS: Encounter type: initial encounter Lumbar vertebra fracture level: L3 Qualified Code(s): S32.030A - Wedge compression fracture of third lumbar vertebra, initial encounter for closed fracture (2) Lumbar disc herniation with radiculopathy: PLAN: Plan I reviewed patient's MRI done today also x-rays from March 16. These show L3 compression deformity which seems to be acute versus subacute based on the MRI. At L2-3 there is a disc extrusion with superior migration going into the right L2-3 foraminal. I explained to patient and Heath the imaging findings in detail. Currently she is neuro intact without any weakness. Based on her age, I would rely on nonsurgical treatments to help her with her pain and mobility for now. This may include physical therapy and or injections through pain management. Oral or IV steroids may be tried for now to help with her symptoms as needed. Patient's pain seems to be in adequate control at this time. She may follow-up with me on a as needed basis as an outpatient. Patient and Heath were in agreement. Charges/Coding Visit Charges Inpatient E&M: 08633 Init Hosp L3
--- NOTE | 2024-04-01 18:15 | PCM.CONS.GEN ---
Assessment & Plan Assessment/Plan (1) Lumbar compression fracture: QUALIFIERS: Encounter type: initial encounter Lumbar vertebra fracture level: L3 Qualified Code(s): S32.030A - Wedge compression fracture of third lumbar vertebra, initial encounter for closed fracture (2) Lumbar disc herniation with radiculopathy: PLAN: Plan I reviewed patient's MRI These show L3 compression deformity which seems to be acute versus subacute based on the MRI read. L2-3 disc extrusion with superior migration causing significant central canal stenosis and neuroforaminal stenosis. -Unruly recommends nonoperative treatments at this time -Starting solumedrol steroids - Has tylenol and PRN opioids medications -Lidocaine patch -Has PRN flexeril. Would be cautious for sedation. -Plan for L4-5 LESI Thursday if she remains in hospital with debilitating pain. -Need to hold lovenox prophylactic dosing for 12 hours prior to injection. If therapeutic dosing, hold for 24 hours prior to injection -Follow up with our office after discharge. HPI Consult Data Date of Consult: 04/01/24 HPI Narrative Reason for Consultation: Back pain HPI Narrative: CHANNING JEFFERY, is a 83 F who presents With low back pain and bilateral lower extremities. R>>L with some numbness. I am consulted to evaluate for pain management options for her pain. I spoke with the patient and her daughter today. She is not a great historian as she has dementia and is on namenda. Difficult to get clear symptomatic story. Her pain started a few weeks ago without clear inciting event. She does not recall a fall specifically. She is using a walker for support. She was admitted for an MRI and evaluation for her back pain and leg pain. Pain is worse with standing. Pain medication is improving the pain. Dr. Tolliver evaluated her an recommended conservative treatment modalities. She is to start IV steroid therapy. She is on prophylactic lovenox. She pain can be 10/10 in severity, but ebbs and flows. She had back surgery in the mid 1990s, but does not recall specifics. [facility] Medical History (Updated 04/01/24 @ 17:[address] Yuan Tolliver MD) Dementia Chronic diastolic (congestive) heart failure Hemorrhoids Type 2 diabetes mellitus Hyperlipidemia Essential (primary) hypertension Cyst of left kidney Pleural effusion on left Pneumonia Secondary pulmonary arterial hypertension Non-rheumatic mitral valve stenosis Mitral valve annular calcification PAUL (acute kidney injury) SIRS (systemic inflammatory response syndrome) (11/18/19) Home Medications ?Medication ?Instructions ?Recorded ?Last Taken ?Type metformin 500 mg tablet,extended 500 mg PO DAILY dm 04/18/14 11/17/19 History release 24 hr amlodipine 10 mg tablet 10 mg PO DAILY see physic 04/30/17 11/17/19 History cholecalciferol (vitamin D3) 25 1,000 unit PO DAILY supplement 11/14/19 11/17/19 History mcg (1,000 unit) tablet flaxseed oil 1,000 mg capsule 1,000 mg PO DAILY supplement 11/14/19 11/17/19 History lisinopril 10 1 tab PO DAILY blood pressure 01/18/20 Unknown History mg-hydrochlorothiazide 12.5 mg tablet ezetimibe 10 mg tablet (Zetia) 10 mg PO DAILY see physician 08/11/22 Unknown History calcium carbonate 500 mg-vitamin 1 tab PO DAILY supplem 02/10/23 Unknown History D3 15 mcg (600 unit) tablet omega 1-ryx-swu-fish oil 300 1 cap PO DAILY supplement 02/10/23 Unknown History mg-1,000 mg capsule (Fish Oil) gabapentin 300 mg capsule 300 mg PO TID pain 03/31/24 04/01/24 06:00 History hydrocodone-acetaminophen 5-325mg 1 tab PO TID PRN pain 3 days #9 03/31/24 04/01/24 00:10 Rx 5mg-325mg tabs cyclobenzaprine 5 mg tablet 5 mg PO TID see physician list 04/01/24 Unknown History cyclosporine 0.05 % eye drops in a 1 drp EACH EYE DAILY dry eyes 04/01/24 Unknown History dropperette (Restasis) diclofenac sodium 1 % topical gel 1 ea topical TID PRN pain 04/01/24 Unknown History (Aleve (diclofenac)) dicyclomine 20 mg tablet 20 mg PO BID abd 04/01/24 Unknown History gabapentin 100 mg capsule 100 mg PO QHS pain 04/01/24 Unknown History loratadine 10 mg tablet (Claritin) 10 mg PO DAILY allergies 04/01/24 Unknown History meloxicam 15 mg tablet 15 mg PO DAILY pain 04/01/24 Unknown History memantine 10 mg tablet 10 mg PO DAILY dementia 04/01/24 Unknown History omeprazole 20 mg capsule,delayed 20 mg PO QHS acid reflex 04/01/24 Unknown History release Allergy/AdvReac Type Severity Reaction Status Date / Time No Known Allergies Allergy Verified 04/01/24 08:54 Social History Smoking Status: Former smoker alcohol intake: current alcohol intake frequency: a few times a week Alcohol type: wine substance use type: does not use caffeine: Yes Type: coffee Number of servings: 2 ROS Review of Systems ROS Unobtainable: due to mental condition Physical Exam Narrative She has percussive tenderness over the lumbar spine and paraspinal tenderness. SLR negative. She is in bed. Ambulated with walker. She has a lidocaine patch on her low back. Normal sensation. Reduced memory. Lab / Micro Data 04/01/24 09:41 04/01/24 09:41 Labs: Laboratory Results - last 24 hr 04/01/24 09:41: WBC 8.0, RBC 4.55, Hgb 13.7, Hct 41.1, MCV 90.3, MCH 30.1, MCHC 33.3, RDW Std Deviation 41.8, RDW Coeff of Santana 12.7, Plt Count 344, MPV 9.7, Immature Gran % (Auto) 0.400, Neut % (Auto) 77.9 H, Lymph % (Auto) 14.1 L, [place] % (Auto) 6.8, Eos % (Auto) 0.4, Baso % (Auto) 0.4, Absolute Neuts (auto) 6.2, Absolute Lymphs (auto) 1.12, Nucleated RBC % 0, Sodium 131 L, Potassium 4.2, Chloride 99, Carbon Dioxide 30.0, Anion Gap 2 L, BUN 15, Creatinine 0.76, Estim Creat Clear Calc 43.03, Est GFR (MDRD) Af Amer 93, Est GFR (MDRD) Non-Af 77, BUN/Creatinine Ratio 19.7, Glucose 144 H, Calcium 9.2 Imaging Radiology Impression Lumbar Spine MRI 04/01/24 09:59 IMPRESSION: Motion artifact. Acute-subacute mild L3 compression fracture with a large L2-3 disc extrusion with superior migration resulting in markedly severe spinal canal stenosis and bilateral nerve root impingement as above. Multilevel degenerative disc disease with moderate spinal canal stenosis at L3-4. Electronically Signed: Aydee Felipe MD at 12:36 EDT ,
[2024-04-01] MEDS: Gabapentin 100 MG Capsule PO (18:40)
[2024-04-01] MEDS: 0.9% Saline Lock 10 ML Syringe IV (18:40)
[2024-04-01 20:20] VITALS: BP 138/56; PULSE 80; RESP 16; TEMP 37.2; O2SAT 94
[2024-04-01] MEDS: Pantoprazole Sodium 20 MG Tablet PO (21:05)
[2024-04-01] MEDS: MELATONIN 3 MG TABLET PO (21:05)
[2024-04-02 05:25] VITALS: BP 113/61; PULSE 64; RESP 16; TEMP 36.6; O2SAT 94
[2024-04-02] MEDS: Acetaminophen 500 MG Tablet 1000 MG PO ×3 (05:33→20:52)
[2024-04-02] MEDS: Senna/Docusate Sodium 1 Tablet PO ×2 (05:34→20:52)
[2024-04-02 08:00] VITALS: O2SAT 94
[2024-04-02 09:00] VITALS: BP 121/59; PULSE 82; RESP 18; TEMP 37; O2SAT 98
[2024-04-02 09:07] LABS: Hematocrit 44.3 % (37-47); Hemoglobin 14.3 g/dL (12.0-15.0); Mean Corp Hgb Conc 32.3 g/dL (32-36); Mean Corpuscular Hgb 30.2 pg (27.0-32.0); Mean Corpuscular Volume 93.5 fL (81-99); Mean Platelet Vol. 10.1 fl (6.2-12.0); Platelet Count 354 K/mm3 (150-450); RBC Distribution Width CV 12.6 % (11.6-14.6); RBC Distribution Width SD 43.6 fl (35.1-43.9); Red Blood Count 4.74 M/mm3 (4.2-5.4); White Blood Count 9.5 K/mm3 (4.4-11.0)
[2024-04-02 09:24] LABS: Anion Gap 3 (5-15); BUN 19 mg/dL (7-18); BUN/Creat Ratio 24.6 RATIO (10-20); Calcium,Total 9.9 mg/dL (8.5-10.1); Chloride 102 mmol/L (98-107); Creatinine, Serum 0.77 mg/dL (0.55-1.02); EST Glomerular Filtration Rate 76 mL/min (>60); Est Glom Filt Rate - Afr Amer 91 mL/min (>60); Glucose 176 mg/dL (74-106); Potassium 4.4 mmol/L (3.5-5.1); Sodium Level 135 mmol/L (136-145)
--- NOTE | 2024-04-02 09:30 | CASEMGMT ---
RN?CM?INSURANCE MANAGER?CM?to room to meet with patient for initial transition planning/care coordination?assessment.?RN?CM?introduced self and role at [facility].? Pt resting in bed in no distress at this time.? Pt has dementia, able to answer some questions, but much of the provided information is incorrect, per dtr, Dominique, who is @ bedside. The following information provided by Dominique. Care providers, pharmacy, and demographics verified/updated at this time. PCP: Dr Prado Specialists: Dominique states she does not think pt sees any specialists. [facility]erred [facility]acy: [facility] Insurance: [employer] [facility] Prescription Benefit:?yes Living Will/HPOA:?Dominique thinks pt has completed these, but she is not sure. She states pt's would know for sure. LNOK: , Heath. 2 daughters, Laura and Dominique. Living Arrangements: Lives w/her in one-story home w/basement and one step to enter. There is one step into the dining room as well. When pt @ her baseline, she is indep w/toileting, bathing, and dressing. manages her medications, gets groceries, makes meals, and does other home mgnt tasks. is physically able to assist pt w/some care, if needed. Dtr is able to assist. Granddaughter comes to stay w/pt @ times. Transportation:?. DME: Pt does not use AD to ambulate and uses no other DME. Pt states has a walker, but Dominique states she does not. Dominique states if pt able to discharge home and if walker is recommended, no preference of DME co. Made aware [employer] is affiliated w/[facility] and she states okay to get it from [facility]. HHC/SNF: No hx of either. Discussed SNF and HHC and questions answered. Dominique states she has not spoken w/ about this yet, but will do so. They would like to see how pt does over the weekend and w/therapy before making decision. A list of both HHC and SNF providers including quality and resource use data and consistent with the patient?s preferred geographic region, medical needs, and insurance network were provided from the [employer] Guide provided. Also given [facility] agency list. PLAN:??TBD by course of treatment and progress w/therapy. SNF vs Home w/HHC. If pt able to discharge home, follow for possible walker or other DME. Cory BSN?RN?CM
[2024-04-02] MEDS: Gabapentin 100 MG Capsule PO ×3 (09:51→17:43)
[2024-04-02] MEDS: 0.9% Saline Lock 10 ML Syringe IV ×2 (09:51→17:43)
[2024-04-02] MEDS: Calcium Carb/Vitamin D 1 TABLET Tablet PO (09:51)
[2024-04-02] MEDS: Enoxaparin 40 MG/0.4 ML Syringe SC (09:52)
[2024-04-02] MEDS: Lidocaine 5% Patch 1 PATCH TOPICAL (09:52)
[2024-04-02] MEDS: Ezetimibe 10 MG Tablet PO (09:52)
[2024-04-02] MEDS: Loratadine 10 MG Tablet PO (09:52)
[2024-04-02] MEDS: Memantine Hydrochloride 10 MG Tablet PO (09:53)
[2024-04-02] MEDS: amLODIPine 10 MG Tablet PO (09:53)
[2024-04-02] MEDS: Cholecalciferol (VIT D3) 25 MCG TABLET (1,000 UNITS) PO (09:53)
--- NOTE | 2024-04-02 11:54 | PCM.PN.HOSP ---
Reason for Visit Reason for Visit: Diagnoses Hypo-osmolality and hyponatremia (04/01/24) Unspecified dementia, unspecified severity, without behavioral disturbance, psychotic disturbance, mood disturbance, and anxiety (04/01/24) Intervertebral disc disorders with radiculopathy, lumbar region (04/01/24) Radiculopathy, lumbar region (04/01/24) Dorsalgia, unspecified (04/01/24) Other malaise (04/01/24) Wedge compression fracture of third lumbar vertebra, initial encounter for closed fracture (04/01/24) Subjective Subjective Saw patient at bedside this morning, and daughter present. Patient appeared similar today to yesterday, was sitting up fairly comfortably in bed, in no acute distress. She again was only answering questions with short responses given her history of dementia. Denied any acute pain at rest today. Was able to work with physical therapy this morning and did fairly well, was able to ambulate to the bathroom and back and did not have significant pain. Patient currently on low-dose IV steroids and plan is for intra-articular injection with pain medicine on Wednesday 04/04. Will keep patient in hospital until injection and likely plan for discharge home with home health care either Thursday or Thursday. Patient and family were agreeable with this plan. Objective Data Objective Data Vital Signs: Vital Signs Temp Pulse Resp BP Pulse Ox O2 Del Method 98.6 F 82 18 121/59 H 98 Room Air 04/02/24 09:00 04/02/24 09:00 04/02/24 09:00 04/02/24 09:00 04/02/24 09:00 04/02/24 09:00 Oxygen Delivery Method Room Air Weight: 50.53 kg Body Mass Index (BMI) 19.7 Intake & Output: Intake and Output for Last 24 Hours 03/31/24 04/01/24 04/02/24 23:59 23:59 23:59 Intake Total 927.5 / 927.5 Balance 927.5 / 927.5 Lab / Micro Data 04/02/24 08:42 04/02/24 08:42 Labs: Laboratory Results - last 24 hr 04/02/24 08:42: WBC 9.5, RBC 4.74, Hgb 14.3, Hct 44.3, MCV 93.5, MCH 30.2, MCHC 32.3, RDW Std Deviation 43.6, RDW Coeff of Santana 12.6, Plt Count 354, MPV 10.1, Sodium 135 L, Potassium 4.4, Chloride 102, Carbon Dioxide 30.0, Anion Gap 3 L, BUN 19 H, Creatinine 0.77, Estim Creat Clear Calc 41.40, Est GFR (MDRD) Af Amer 91, Est GFR (MDRD) Non-Af 76, BUN/Creatinine Ratio 24.6 H, Glucose 176 H, Calcium 9.9 Radiography Diagnostic Testing: Radiology Impression Lumbar Spine MRI 04/01/24 09:59 IMPRESSION: Motion artifact. Acute-subacute mild L3 compression fracture with a large L2-3 disc extrusion with superior migration resulting in markedly severe spinal canal stenosis and bilateral nerve root impingement as above. Multilevel degenerative disc disease with moderate spinal canal stenosis at L3-4. Electronically Signed: Aydee Felipe MD at 12:36 EDT Reading Location ID and State: [facility] / [place] Tel , Service support , Physical Exam Const alert and no apparent distress Constitutional Narrative: Elderly female, thin and somewhat chronically ill-appearing, history of dementia, alert but not answering most questions appropriately for me, otherwise sitting up comfortably in bed, in no acute distress. Stable. General Appearance: cooperative and comfortable HEENT normocephalic, head/scalp atraumatic, hearing grossly normal bilaterally, nasal mucous membranes and turbinates normal and moist oral mucous membranes Eyes PERRL, EOMs intact bilaterally and conjunctivae normal Neck full ROM Chest inspection of chest normal Resp normal respiratory effort, normal air movement, no use of accessory muscles and clear to auscultation bilaterally Cardio regular rate, regular rhythm, no murmurs and peripheral pulses 2+ throughout GI normal to inspection, nondistended, normoactive bowel sounds, soft to palpation, non-tender and non-distended Back/Spine Back/Spine Narrative: No pain to palpation of lower back. Extremity normal to inspection, full ROM and no pedal edema Skin no rashes or lesions noted Neuro moves all extremities Psych mental status grossly normal Assessment & Plan Assessment/Plan (1) Intractable back pain: (2) Acute left lumbar radiculopathy: (3) Hyponatremia: (4) Dementia: (5) Debility: PLAN: Plan Patient is an 83-year-old female who presented to [facility] ED on 04/01/2024 with worsening low back pain with bilateral radiculopathy. 1. Worsening low back pain with bilateral radiculopathy; acute on chronic debility ? Orthopedics and pain management following. MRI lumbar spine on admit showed acute?subacute mild L3 compression fracture with large L2-3 disc extrusion with superior migration resulting in markedly severe spinal canal stenosis and bilateral nerve root impingement. Per orthopedics, patient notably is neuro intact without any weakness and has good pain control at this time, no need for operative therapy. Pain management planning for intra-articular injection on Thursday. Okay to continue low-dose IV Solu-Medrol for now. Continue scheduled Tylenol, lidocaine patch, oxycodone as needed and IV Dilaudid as needed. Continue home gabapentin. PT/OT/case management following, likely planning for home with home health care on discharge. 2. Mild hyponatremia, improved ? Sodium 131 on admit, baseline sodium in normal range. Likely secondary to mild dehydration from recent poor p.o. intake. Fluid resuscitation given in the ED with repeat sodium 135 on hospital day 2. No need to monitor further BMPs. 3. Dementia ? Alert and oriented to person and place at baseline but per has had more difficulty with maintaining conversations for the past several months. Lives at home with currently but functional status slowly declining. PT/OT/case management following as above. Continue home memantine. Chronic medical conditions: ? Hypertension: Normotension to mild hypertension noted on admission. Continue home amlodipine, holding home lisinopril?hydrochlorothiazide for now, resume as needed. ? Hyperlipidemia: Continue home Zetia. ? Type 2 diabetes mellitus: On home metformin 500 mg daily. Blood sugar 144 on admit. Last A1c 6.5% in 05/2023. Patient with poor p.o. intake recently per . Will hold on starting sliding scale insulin with meals or checking regular blood sugars for now, monitor blood sugar on daily BMP. ? GERD: Continue home statin. ? Allergies: Continue home loratadine. DVT prophylaxis: Lovenox CODE STATUS: Full code, verified Expected disposition: Likely home with home health care, 2 to 3 days Total clinical time spent by myself addressing the patient's medical issues, reviewing all the data, and collaborating with patient's care team: 35 minutes. Charges/Coding Visit Charges Inpatient E&M: 99471 Subs Hosp L2
[2024-04-02 16:44] LABS: Mucous, Urine 0 SEEN /hpf (<or=2+); Red Blood Cells-Urine 0 SEEN /hpf (0-5)
[2024-04-02 16:48] VITALS: BP 142/57; PULSE 90; RESP 18; TEMP 36.8; O2SAT 97
[2024-04-02 16:48] LABS: Color, Urine Yellow (Yellow); Glucose, Dipstick 100 mg/dl (Normal); Ketone-Dipstick Negative (Negative); Leukocyte Esterase-Dipstick 500 /ul (Negative); Nitrite-Dipstick Negative (Negative); Occult Blood-Urine Negative /ul (Negative); Protein-Dipstick Negative (Negative); Specific Gravity, Urine 1.015 (1.002-1.030); Urine Bilirubin Dipstick Negative (Negative); Urine Clarity Clear (Clear); Urine Urobilinogen Normal (Normal); Urine pH 6.5 (5.0 - 8.0)
[2024-04-02 17:11] LABS: Bacteria 1+ /hpf (None Seen); Squamous Epithelial Cells - UA 0-5 SEEN /hpf (5-10); White Blood Cells 5-10 SEEN /hpf (0-5)
[2024-04-02] MEDS: Pantoprazole Sodium 20 MG Tablet PO (20:52)
[2024-04-02] MEDS: MELATONIN 3 MG TABLET PO (20:52)
[2024-04-02 20:56] VITALS: BP 143/75; PULSE 86; RESP 15; TEMP 36.6; O2SAT 95
[2024-04-03] VITALS (7 sets, daily range): BP systolic 106–129; BP diastolic 54–62; PULSE 70–86; RESP 15–18; TEMP 36.7–37.2; O2SAT 94–98
[2024-04-03] MEDS: Acetaminophen 500 MG Tablet 1000 MG PO ×3 (06:57→21:43)
[2024-04-03] MEDS: Gabapentin 100 MG Capsule PO ×3 (07:51→17:02)
[2024-04-03] MEDS: Ezetimibe 10 MG Tablet PO (07:51)
[2024-04-03] MEDS: amLODIPine 10 MG Tablet PO (07:51)
[2024-04-03] MEDS: Senna/Docusate Sodium 1 Tablet PO ×2 (07:52→21:43)
[2024-04-03] MEDS: Calcium Carb/Vitamin D 1 TABLET Tablet PO (07:52)
[2024-04-03] MEDS: Cholecalciferol (VIT D3) 25 MCG TABLET (1,000 UNITS) PO (07:52)
[2024-04-03] MEDS: Loratadine 10 MG Tablet PO (07:53)
[2024-04-03] MEDS: Memantine Hydrochloride 10 MG Tablet PO (07:53)
[2024-04-03] MEDS: Lidocaine 5% Patch 1 PATCH TOPICAL (07:54)
[2024-04-03] MEDS: Enoxaparin 40 MG/0.4 ML Syringe SC (07:58)
--- NOTE | 2024-04-03 12:14 | PN.HOSP_ITS ---
Reason for Visit Reason for Visit: Diagnoses Hypo-osmolality and hyponatremia (04/01/24) Unspecified dementia, unspecified severity, without behavioral disturbance, psychotic disturbance, mood disturbance, and anxiety (04/01/24) Intervertebral disc disorders with radiculopathy, lumbar region (04/01/24) Radiculopathy, lumbar region (04/01/24) Dorsalgia, unspecified (04/01/24) Other malaise (04/01/24) Wedge compression fracture of third lumbar vertebra, initial encounter for closed fracture (04/01/24) Subjective Subjective Saw patient at bedside this morning. Sitting up comfortably in bed, in no acute distress. Had no family at bedside this morning. Patient answered my questions with short responses; reported some pain with movement but otherwise no new concerns today. Objective Data Objective Data Vital Signs: Vital Signs Temp Pulse Resp BP Pulse Ox O2 Del Method 98.0 F 73 18 129/59 H 98 Room Air 04/03/24 10:00 04/03/24 10:00 04/03/24 10:00 04/03/24 10:00 04/03/24 10:00 04/03/24 10:00 Oxygen Delivery Method Room Air Weight: 50.53 kg Body Mass Index (BMI) 19.7 Intake & Output: Intake and Output for Last 24 Hours 04/01/24 04/02/24 04/03/24 23:59 23:59 23:59 Intake Total 927.5 / 927.5 1650 / 1750 100 / 100 Balance 927.5 / 927.5 1650 / 1750 100 / 100 Lab / Micro Data 04/02/24 08:42 04/02/24 08:42 Labs: Laboratory Results - last 24 hr 04/01/24 09:26: Urine Color Yellow, Urine Clarity Clear, Urine pH 6.5, Ur Specific [place] 1.015, Urine Protein Negative, Urine Glucose (UA) 100 H, Urine Ketones Negative, Urine Occult Blood Negative, Urine Nitrite Negative, Urine Bilirubin Negative, Urine Urobilinogen Normal, Ur Leukocyte Esterase 500 H, Urine RBC 0 SEEN, Urine WBC 5-10 SEEN, Ur Squamous Epith Cells 0-5 SEEN, Urine Bacteria 1+, Urine Mucus 0 SEEN Physical Exam Const alert and no apparent distress Constitutional Narrative: Elderly female, thin and somewhat chronically ill-appearing, history of dementia, alert but not answering most questions appropriately for me, otherwise sitting up comfortably in bed, in no acute distress. Stable. General Appearance: cooperative and comfortable HEENT normocephalic, head/scalp atraumatic, hearing grossly normal bilaterally, nasal mucous membranes and turbinates normal and moist oral mucous membranes Eyes PERRL, EOMs intact bilaterally and conjunctivae normal Neck full ROM Chest inspection of chest normal Resp normal respiratory effort, normal air movement, no use of accessory muscles and clear to auscultation bilaterally Cardio regular rate, regular rhythm, no murmurs and peripheral pulses 2+ throughout GI normal to inspection, nondistended, normoactive bowel sounds, soft to palpation, non-tender and non-distended Back/Spine Back/Spine Narrative: No pain to palpation of lower back. Extremity normal to inspection, full ROM and no pedal edema Skin no rashes or lesions noted Neuro moves all extremities Psych mental status grossly normal Assessment & Plan Assessment/Plan (1) Intractable back pain: (2) Acute left lumbar radiculopathy: (3) Hyponatremia: (4) Dementia: (5) Debility: PLAN: Plan Patient is an 83-year-old female who presented to [facility] ED on 04/01/2024 with worsening low back pain with bilateral radiculopathy. 1. Worsening low back pain with bilateral radiculopathy; acute on chronic debility ? Orthopedics evaluated. Pain management following. MRI lumbar spine on admit showed acute?subacute mild L3 compression fracture with large L2-3 disc extrusion with superior migration resulting in markedly severe spinal canal stenosis and bilateral nerve root impingement. Per orthopedics, patient is neuro intact without any weakness and has good pain control at this time, no need for operative therapy. Pain management planning for intra-articular injection on Thursday. Will continue low-dose IV Solu-Medrol through Thursday evening. Continue scheduled Tylenol, lidocaine patch, oxycodone as needed and IV Dilaudid as needed. Continue home gabapentin. PT/OT/case management following. Currently planning for discharge home with home health care, likely on Thursday or Thursday. 2. Mild hyponatremia, improved ? Sodium 131 on admit, baseline sodium in normal range. Likely secondary to mild dehydration from recent poor p.o. intake. Fluid resuscitation given in the ED with repeat sodium 135 on hospital day 2. No need to monitor further BMPs. 3. Dementia ? Alert and oriented to person and place at baseline but per has had more difficulty with maintaining conversations for the past several months. Lives at home with currently but functional status slowly declining. PT/OT/case management following as above. Continue home memantine. Chronic medical conditions: ? Hypertension: Normotension to mild hypertension noted on admission. Continue home amlodipine, holding home lisinopril?hydrochlorothiazide for now, resume as needed. ? Hyperlipidemia: Continue home Zetia. ? Type 2 diabetes mellitus: On home metformin 500 mg daily. Blood sugar 144 on admit. Last A1c 6.5% in 05/2023. Patient with poor p.o. intake recently per . Will hold on starting sliding scale insulin with meals or checking regular blood sugars for now, monitor blood sugar on daily BMP. ? GERD: Continue home statin. ? Allergies: Continue home loratadine. DVT prophylaxis: Lovenox CODE STATUS: Full code, verified Expected disposition: Likely home with home health care, 1 to 2 days Total clinical time spent by myself addressing the patient's medical issues, reviewing all the data, and collaborating with patient's care team: 35 minutes. Charges/Coding Visit Charges Inpatient E&M: 48962 Subs Hosp L2
[2024-04-03] MEDS: Polyethylene Glycol 3350 17 GM PACKET PO (12:48)
[2024-04-03] MEDS: Pantoprazole Sodium 20 MG Tablet PO (21:43)
[2024-04-03] MEDS: MELATONIN 3 MG TABLET PO (21:43)
[2024-04-04] VITALS (11 sets, daily range): BP systolic 105–146; BP diastolic 56–81; PULSE 67–85; RESP 15–18; TEMP 36.6–36.8; O2SAT 95–100
[2024-04-04] MEDS: Acetaminophen 500 MG Tablet 1000 MG PO ×3 (05:42→22:54)
[2024-04-04] MEDS: Senna/Docusate Sodium 1 Tablet PO ×2 (05:42→22:51)
[2024-04-04] MEDS: Gabapentin 100 MG Capsule PO ×2 (08:28→15:28)
[2024-04-04] MEDS: Calcium Carb/Vitamin D 1 TABLET Tablet PO (08:29)
[2024-04-04] MEDS: Ezetimibe 10 MG Tablet PO (08:29)
[2024-04-04] MEDS: Polyethylene Glycol 3350 17 GM PACKET PO (08:31)
[2024-04-04] MEDS: Cholecalciferol (VIT D3) 25 MCG TABLET (1,000 UNITS) PO (08:32)
[2024-04-04] MEDS: Lidocaine 5% Patch 1 PATCH TOPICAL (08:32)
[2024-04-04] MEDS: Memantine Hydrochloride 10 MG Tablet PO (08:32)
[2024-04-04] MEDS: Loratadine 10 MG Tablet PO (08:33)
[2024-04-04] MEDS: amLODIPine 10 MG Tablet PO (10:02)
--- NOTE | 2024-04-04 10:21 | CASEMGMT ---
Addendum entered by Kavita Dawson 04/04/24 11:51: Social Work- A list of SNF providers including quality and resource use data and consistent with the patient?s preferred geographic region, medical needs, and insurance network were provided from the [employer] Guide. MARKEL Brown Original Note: Social Work- SW met with pt and spouse to discuss preference on SNF vs HHC. Pt spouse states injections for pain have not been started and he is uncertain on where pain levels will be when pt is working with PT and, therefore, unable to make a decision on preference at this time. MARKEL Brown
--- NOTE | 2024-04-04 12:25 | PCM.PRE.AN2 ---
ASA Classification* ASA Classification ASA Classification: 2 and 3 Assessment & Plan Anesthesia* Anesthesia Assessment Anesthesia Assessment: Discussed sedation and/or anesthesia options, risks, benefits, and alternatives with patient/parents/legal guardian/POA. Questions invited. The patient/parents/legal guardian/POA seems to understand and agrees to proceed with anesthesia plan. Reviewed the physical assessment, medical history, allergy history and patient home medications list prior to surgery/procedure/anesthetic and documented any changes. Performed airway and anesthesia risk assessments. Anesthesia Type Anesthesia Type: MAC History Source History Obtained from:: Patient and Chart Anesthesia Focused Assessment* Temperature: 98.3 F Pulse Rate: 82 Blood Pressure: 113/56 Respiratory Rate: 16 Pulse Ox: 96 Oxygen Delivery Method: Room Air Airway Assessment Mouth opens: >3 cm Mallampati Score: II Teeth Condition: Dentures and Full Neck Range of motion (ROM): Limited ROM (Somewhat limited extension.) Focused Labs Anesthesia Preop lab: CBC WBC 9.5 K/mm3 (4.4-11.0) 04/02/24 08:42 RBC 4.74 M/mm3 (4.2-5.4) 04/02/24 08:42 Hgb 14.3 g/dL (12.0-15.0) 04/02/24 08:42 Hct 44.3 % (37-47) 04/02/24 08:42 Plt Count 354 K/mm3 (150-450) 04/02/24 08:42 CHEMISTRY Potassium 4.4 mmol/L (3.5-5.1) 04/02/24 08:42 Sodium 135 mmol/L (136-145) L 04/02/24 08:42 BUN 19 mg/dL (7-18) H 04/02/24 08:42 Creatinine 0.77 mg/dL (0.55-1.02) 04/02/24 08:42 Glucose 176 mg/dL (74-106) H 04/02/24 08:42 POC Glucose 126 mg/dL (70-110) H 11/20/19 06:45 TSH 1.41 uIU/mL (0.358-3.74) 05/30/22 09:02 COAG Pre-Assessment Diagnosis/Proposed Procedure Planned Operative Procedure(s): Epidural steroid injection at lumbar 4-5. Anesthesia History Anesthesia History - cartography technician: Anesthesia History - cartography technician Hx Hospitalization No 11/17/19 20:56 Any Problems With Anesthesia Cholinesterase deficiency You/Your Family Experience fever (hyperthermia) with Relationship Recent Exposure to Contagious Disease Does patient have nerve stimulator Patient instructed to have device shut off --Does patient have Pacemaker or ICD? When Was Last Pacemaker Check QUESTION #4 FULL TEXT: You/Your Family Experience fever (hyperthermia) with Anesthesia Last Oral Intake Last Oral intake: Last Oral Intake NPO since Meds taken in AM with sips of water? Meds patient instructed to take am of surgery Patient had breakfast at 8 AM. PONV PONV - cartography technician: PONV - cartography technician Female HX of Motion Sickness HX of N/V After Surgery Non-Smoker Duration of Surgery greater than 60 minutes Number of Risk Factors PONV Score Height & Weight Height & Weight: Anesthesia: Height & Weight Height 5 ft 2.99 in 04/01/24 14:05 Weight: 50.53 kg 04/01/24 14:05 Body Mass Index (BMI) 19.7 04/01/24 10:38 Respiratory Assessment Respiratory Assessment - cartography technician: Respiratory Tract Infection Hx - cartography technician Hx Respiratory Tract Infection No recent colds or coughs. STOP Sleep Apnea STOP Sleep Apnea - cartography technician: STOP Sleep Apnea - cartography technician Hx Hypertension Yes: denies 04/02/24 08:07 Hx Sleep Apnea No 04/01/24 10:54 CPAP BIPAP Do you snore loudly (louder No 04/01/24 10:54 than talking or can be heard Do you often feel tired/ No 04/01/24 10:54 fatigued/ sleepy during daytime? Has anyone observed you stop No 04/01/24 10:54 breathing during sleep? STOP Results Negative 04/01/24 10:54 QUESTION #5 FULL TEXT : Do you snore loudly (louder than talking or can be heard through closed doors)? Tobacco Use History Tobacco Use History - cartography technician: Tobacco Use History - cartography technician Tobacco Use Smoking Status Former smoker 04/01/24 10:54 Hx Tobacco Use No 04/01/24 10:54 Years Smoking 5 04/01/24 10:54 Packs Smoked per Day Smoking Cessation Date was Yes - quit smoking within 15 04/01/24 10:54 within the last 15 years years Hx Smoking Cessation Date 09/21/04 04/01/24 10:54 Hx Smoking Cessation Counseling Hematologic Medial History Hematologic Hx - cartography technician: Hematologic Medical Hx - technical documentation specialist Hx of Blood Transfusion Hx of Transfusion in last 3 Months Date of Last Transfusion (if within last 3 months) Ever experience any problems with transfusion(s)? Specify any problems Hx of Preganancy in last 3 Months Nurse Filling Out Transfusion & Questions: Date: Time: Patient unable to answer at Yes 04/01/24 10:54 this time (ie. confused, unrespo /Reproduction History /Reproductive History - cartography technician: /Reproductive Hx- cartography technician Hx Now Gestational Age (in weeks): EDC: Hx Hx Para Hx Section SAB Active Medications Active Medications: Current Medications Generic Name Dose Route Start Last Admin Trade Name Freq PRN Reason Stop Dose Admin Acetaminophen 1,000 mg 04/01/24 14:00 04/04/24 05:42 Acetaminophen 500 Mg Tablet PO 1,000 mg Q8 SERGIO Administration Amlodipine Besylate 10 mg 04/01/24 10:39 04/04/24 10:02 Amlodipine 10 Mg Tablet PO 10 mg DAILY SERGIO Administration Protocol Calcium/Vitamin D 1 tablet 04/01/24 10:39 04/04/24 08:29 Calcium Carb/Vitamin D 1 Tablet Tablet PO 1 tablet DAILYCM SERGIO Administration Cholecalciferol 25 mcg 04/01/24 10:39 04/04/24 08:32 Cholecalciferol (Vit D3) 25 Mcg Tablet (1,000 Units) PO 25 mcg DAILYCM SERGIO Administration Ezetimibe 10 mg 04/01/24 10:39 04/04/24 08:29 Ezetimibe 10 Mg Tablet PO 10 mg DAILY SERGIO Administration Enoxaparin Sodium 40 mg 04/02/24 10:00 04/03/24 07:58 Enoxaparin 40 Mg/0.4 Ml Syringe SC 40 mg DAILY SERGIO Administration Gabapentin 100 mg 04/01/24 17:00 04/04/24 08:28 Gabapentin 100 Mg Capsule PO 100 mg TIDCM SERGIO Administration Glycerin/Hypromellose/Polyethylene 1 drp 04/01/24 12:30 Glycerin/Hypromellose/[id number] 15 Ml Bottle EACH EYE Q1H PRN PRN DRY EYES Hydromorphone HCl 0.5 mg 04/01/24 10:39 Hydromorphone 0.5 Mg/0.5 Ml Syringe IV Q4H PRN PRN Pain Score 6-10 Sodium Chloride 250 mls @ 15 mls/hr 04/01/24 11:21 IV .[id number] PRN Additional IVPB Infusion Sodium Chloride 250 mls @ 15 mls/hr 04/01/24 11:21 IV .[id number] PRN Saline Flush Lidocaine 1 patch 04/01/24 10:39 04/04/24 08:32 Lidocaine 5% Patch TOPICAL 1 patch DAILY SERGIO Administration Protocol Loratadine 10 mg 04/02/24 10:00 04/04/24 08:33 Loratadine 10 Mg Tablet PO 10 mg DAILY SERGIO Administration Melatonin 3 mg 04/01/24 10:39 04/03/24 21:43 Melatonin 3 Mg Tablet PO 3 mg QHS PRN PRN Administration INSOMNIA Memantine 10 mg 04/02/24 10:00 04/04/24 08:32 Memantine Hydrochloride 10 Mg Tablet PO 10 mg DAILY SERGIO Administration Ondansetron HCl 4 mg 04/01/24 10:39 Ondansetron 4 Mg/2 Ml Vial IV Q8H PRN PRN NAUSEA/VOMITING Oxycodone HCl 5 mg 04/01/24 10:39 Oxycodone 5 Mg Tablet PO Q4H PRN PRN Pain Score 4-10 Pantoprazole Sodium 20 mg 04/01/24 22:00 04/03/24 21:43 Pantoprazole Sodium 20 Mg Tablet PO 20 mg QHS SERGIO Administration Polyethylene Glycol 17 gm 04/03/24 11:10 04/04/24 08:31 Polyethylene Glycol 3350 17 Gm Packet PO 17 gm DAILY SERGIO Administration Senna/Docusate Sodium 1 tablet 04/01/24 22:00 04/04/24 05:42 Senna/Docusate Sodium 1 Tablet PO 1 tablet BID SERGIO Administration Sodium Chloride 10 - 40 ml 04/01/24 11:21 04/02/24 17:43 0.9% Saline Lock 10 Ml Syringe IV 10 ml UD PRN Administration SALINE FLUSH PFSH Medical History Dementia Chronic diastolic (congestive) heart failure Hemorrhoids Type 2 diabetes mellitus Hyperlipidemia Essential (primary) hypertension Cyst of left kidney Pleural effusion on left Pneumonia Secondary pulmonary arterial hypertension Non-rheumatic mitral valve stenosis Mitral valve annular calcification PAUL (acute kidney injury) SIRS (systemic inflammatory response syndrome) (11/18/19) Home Medications ?Medication ?Instructions ?Recorded ?Last Taken ?Type metformin 500 mg tablet,extended 500 mg PO DAILY dm 04/18/14 11/17/19 History release 24 hr amlodipine 10 mg tablet 10 mg PO DAILY see physic 04/30/17 11/17/19 History cholecalciferol (vitamin D3) 25 1,000 unit PO DAILY supplement 11/14/19 11/17/19 History mcg (1,000 unit) tablet flaxseed oil 1,000 mg capsule 1,000 mg PO DAILY supplement 11/14/19 11/17/19 History lisinopril 10 1 tab PO DAILY blood pressure 01/18/20 Unknown History mg-hydrochlorothiazide 12.5 mg tablet ezetimibe 10 mg tablet (Zetia) 10 mg PO DAILY see physician 08/11/22 Unknown History calcium carbonate 500 mg-vitamin 1 tab PO DAILY supplem 02/10/23 Unknown History D3 15 mcg (600 unit) tablet omega 4-jlc-enb-fish oil 300 1 cap PO DAILY supplement 02/10/23 Unknown History mg-1,000 mg capsule (Fish Oil) gabapentin 300 mg capsule 300 mg PO TID pain 03/31/24 04/01/24 06:00 History hydrocodone-acetaminophen 5-325mg 1 tab PO TID PRN pain 3 days #9 03/31/24 04/01/24 00:10 Rx 5mg-325mg tabs cyclobenzaprine 5 mg tablet 5 mg PO TID see physician list 04/01/24 Unknown History cyclosporine 0.05 % eye drops in a 1 drp EACH EYE DAILY dry eyes 04/01/24 Unknown History dropperette (Restasis) diclofenac sodium 1 % topical gel 1 ea topical TID PRN pain 04/01/24 Unknown History (Aleve (diclofenac)) dicyclomine 20 mg tablet 20 mg PO BID abd 04/01/24 Unknown History gabapentin 100 mg capsule 100 mg PO QHS pain 04/01/24 Unknown History loratadine 10 mg tablet (Claritin) 10 mg PO DAILY allergies 04/01/24 Unknown History meloxicam 15 mg tablet 15 mg PO DAILY pain 04/01/24 Unknown History memantine 10 mg tablet 10 mg PO DAILY dementia 04/01/24 Unknown History omeprazole 20 mg capsule,delayed 20 mg PO QHS acid reflex 04/01/24 Unknown History release Allergy/AdvReac Type Severity Reaction Status Date / Time No Known Allergies Allergy Verified 04/01/24 08:54 Social History Smoking Status: Former smoker alcohol intake: current alcohol intake frequency: a few times a week Alcohol type: wine substance use type: does not use caffeine: Yes Type: coffee Number of servings: 2 Review of Systems (Anesthesia) ROS Narrative System reviewed and no additional complaints, except as documented.
--- NOTE | 2024-04-04 14:30 | RAD_ITS ---
STUDY: X-RAY - LUMBAR SPINE REASON FOR EXAM: Female, 83 years old. LUMBAR EPIDURAL BLOCK L4-5 TECHNIQUE: 1 view(s) of the lumbar spine were obtained. COMPARISON: None FINDINGS: 4 seconds of fluoroscopy the lumbar spine was utilized in oven operator under an epidural block and a single image is negative for interpretation. . RAD/Spine 1 View Any Level IMPRESSION: Fluoroscopy during epidural block. Electronically Signed: Rashad Jones MD at 15:14 EDT ,
[2024-04-04] MEDS: Lidocaine 0.5% (50 ml) 50 ML Vial (14:39)
[2024-04-04] MEDS: Triamcinolone Acetonide 40 MG/ML Vial (14:39)
--- NOTE | 2024-04-04 14:52 | PCM.POST.ANE ---
Anesthesia: Postop Eval I Current Vital Signs Temperature: 98.2 F Pulse Rate: 85 Blood Pressure: 105/70 Respiratory Rate: 18 Pulse Ox: 100 Oxygen Delivery Method: Room Air Assessment Airway patent: Yes Spontaneous unlabored respirations: Yes Mental status: Awake and Calm nausea: No Vomiting: No Anesthesia Complication: No Fluid Hydration Crystalloid volume administer (ml): 100 Total IV fluid infused: 100 Progress Note Anesthesia document: Postop Eval 1 completed: Yes
--- NOTE | 2024-04-04 15:11 | PCM.PN.HOSP ---
Reason for Visit Reason for Visit: Diagnoses Hypo-osmolality and hyponatremia (04/01/24) Unspecified dementia, unspecified severity, without behavioral disturbance, psychotic disturbance, mood disturbance, and anxiety (04/01/24) Intervertebral disc disorders with radiculopathy, lumbar region (04/01/24) Radiculopathy, lumbar region (04/01/24) Dorsalgia, unspecified (04/01/24) Other malaise (04/01/24) Wedge compression fracture of third lumbar vertebra, initial encounter for closed fracture (04/01/24) Subjective Subjective Patient reports being very constipated, back pain not severe while lying in bed but still having difficulty getting around, for injection today Objective Data Objective Data Vital Signs: Vital Signs Temp Pulse Resp BP Pulse Ox O2 Del Method 97.9 F 69 16 129/63 H 96 Room Air 04/04/24 15:04 04/04/24 15:04 04/04/24 15:04 04/04/24 15:04 04/04/24 15:04 04/04/24 15:04 Oxygen Delivery Method Room Air Weight: 50.53 kg Body Mass Index (BMI) 19.7 Intake & Output: Intake and Output for Last 24 Hours 04/02/24 04/03/24 04/04/24 23:59 23:59 23:59 Intake Total 1650 / 1750 2100 / 2100 300 / 300 Balance 1650 / 1750 2100 / 2100 300 / 300 Lab / Micro Data 04/02/24 08:42 04/02/24 08:42 Physical Exam Narrative General: Alert, oriented, no apparent distress HEENT: Atraumatic, normocephalic Eyes: Anicteric, normal conjunctiva, extraocular movements grossly intact Neck: Supple Respiratory: Clear to auscultation bilaterally, normal respiratory effort Cardiovascular: Regular rate and rhythm GI: Soft, nontender, nondistended, patient does feel a full feeling Extremities: No edema Musculoskeletal: Moving all extremities Neuro: No overt focal neurological deficits Skin: No rashes appreciated Psych: Cooperative Assessment & Plan Assessment/Plan (1) Intractable back pain: (2) Acute left lumbar radiculopathy: (3) Hyponatremia: (4) Dementia: (5) Debility: PLAN: Plan # Worsening low back pain with bilateral radiculopathy -MRI lumbar spine on admit showed acute?subacute mild L3 compression fracture with large L2-3 disc extrusion with superior migration resulting in markedly severe spinal canal stenosis and bilateral nerve root impingement -Evaluated by Ortho and no op therapy needed -Pain management consulted and patient for intra-articular joint injection today -Status post IV Solu-Medrol -Pain control -PT/OT for determination of SNF versus home with home health Chronic medical conditions: ? Hypertension: Blood pressure fairly well-controlled, continue loaded pain ? Hyperlipidemia: Continue home Zetia. ? Type 2 diabetes mellitus: Patient only on metformin 500 daily at home, BMP glucoses had been within range for inpatient admission, do not think we need sliding scale at this time ? GERD: Continue home statin. ? Allergies: Continue home loratadine. DVT prophylaxis: Lovenox Time spent in the patient's overall evaluation,decision-making process, review of diagnostic data, adjustment of management, discussion with other providers, nursing nursing and ancillary staff involved in patient's care documentation, 30 minutes Charges/Coding Visit Charges Inpatient E&M: 89973 Subs Hosp L1
--- NOTE | 2024-04-04 15:24 | CASEMGMT ---
Addendum entered by Kavita Dawson 04/05/24 10:24: TCU accepted; precert started MARKEL Brown Original Note: Social Work- SW met with pt and and daughter to discuss preference for SNF. Pt family would like [facility]CU as first choice. [facility] as second choice. SW sent referral to TCU and updated DCA. MARKEL Brown
[2024-04-04] MEDS: Bisacodyl 10 MG Suppository RC (17:05)
[2024-04-04] MEDS: Pantoprazole Sodium 20 MG Tablet PO (22:52)
[2024-04-05 06:13] VITALS: BP 133/73; PULSE 84; RESP 16; TEMP 36.6; O2SAT 95
[2024-04-05] MEDS: Acetaminophen 500 MG Tablet 1000 MG PO ×3 (06:21→22:35)
--- NOTE | 2024-04-05 08:08 | POSTOPAN2_ITS ---
Anesthesia Postop Eval I Sum Postop Eval Completion status Anesthesia document: Postop Eval 1 completed: Yes Anesthesia Postop Eval I Summary Anesthesia Postop Eval I Summary: Anesthesia Postop Eval I: Assessment Summary Airway patent Yes 04/04/24 14:53 [email or web address] Spontaneous unlabored Yes 04/04/24 14:53 [email or web address] respirations Mental status Awake,Calm 04/04/24 14:53 [email or web address] nausea No 04/04/24 14:53 CHASSIS [email or web address] Vomiting No 04/04/24 14:53 [email or web address] [email or web address] Anesthesia Postop Eval I: Fluid Summary Crystalloid volume administer 100 04/04/24 14:53 [email or web address] (ml) Colloids volume administered ( ml) Blood Product volume administered (ml) Total IV fluid infused 100 04/04/24 14:53 [email or web address] Anesthesia Postop Eval I: Summary Notes Anesthesia Complication No 04/04/24 14:53 CHASSIS [email or web address] Anesthesia Complication Comment: Post-operative progress note Anesthesia: Postop Eval II Evaluation Mental status: Awake Pain Level: 0 nausea: No Vomiting: No Complications Anesthesia Complication: No
--- NOTE | 2024-04-05 08:08 | PCM.POSTANE2 ---
Anesthesia Postop Eval I Sum Postop Eval Completion status Anesthesia document: Postop Eval 1 completed: Yes Anesthesia Postop Eval I Summary Anesthesia Postop Eval I Summary: Anesthesia Postop Eval I: Assessment Summary Airway patent Yes 04/04/24 14:53 FLEET [email or web address] Spontaneous unlabored Yes 04/04/24 14:53 FLEET [email or web address] respirations Mental status Awake,Calm 04/04/24 14:53 FLEET [email or web address] nausea No 04/04/24 14:53 FLEET [email or web address] Vomiting No 04/04/24 14:53 FLEET [email or web address] Anesthesia Postop Eval I: Fluid Summary Crystalloid volume administer 100 04/04/24 14:53 FLEET [email or web address] (ml) Colloids volume administered ( ml) Blood Product volume administered (ml) Total IV fluid infused 100 04/04/24 14:53 FLEET [email or web address] Anesthesia Postop Eval I: Summary Notes Anesthesia Complication No 04/04/24 14:53 FLEET [email or web address] Anesthesia Complication Comment: Post-operative progress note Anesthesia: Postop Eval II Evaluation Mental status: Awake Pain Level: 0 nausea: No Vomiting: No Complications Anesthesia Complication: No
[2024-04-05] MEDS: Gabapentin 100 MG Capsule PO ×3 (08:11→17:44)
[2024-04-05] MEDS: Enoxaparin 40 MG/0.4 ML Syringe SC (08:11)
[2024-04-05] MEDS: Lidocaine 5% Patch 1 PATCH TOPICAL (08:12)
[2024-04-05] MEDS: Senna/Docusate Sodium 1 Tablet PO ×2 (08:12→22:35)
[2024-04-05] MEDS: Memantine Hydrochloride 10 MG Tablet PO (08:12)
[2024-04-05] MEDS: Cholecalciferol (VIT D3) 25 MCG TABLET (1,000 UNITS) PO (08:12)
[2024-04-05] MEDS: Loratadine 10 MG Tablet PO (08:12)
[2024-04-05] MEDS: Ezetimibe 10 MG Tablet PO (08:12)
[2024-04-05] MEDS: Polyethylene Glycol 3350 17 GM PACKET PO ×2 (08:12→22:35)
[2024-04-05] MEDS: Calcium Carb/Vitamin D 1 TABLET Tablet PO (08:12)
[2024-04-05] MEDS: amLODIPine 10 MG Tablet PO (08:12)
[2024-04-05 09:30] VITALS: O2SAT 96
[2024-04-05 10:27] VITALS: BP 130/68; PULSE 75; RESP 16; TEMP 36.8; O2SAT 98
[2024-04-05] MEDS: Lactulose 20 GM/30 ML UDC PO ×2 (14:40→22:35)
[2024-04-05 16:06] VITALS: BP 123/68; PULSE 77; RESP 16; TEMP 36.8; O2SAT 99
--- NOTE | 2024-04-05 16:09 | PCM.PN.HOSP ---
Reason for Visit Reason for Visit: Diagnoses Hypo-osmolality and hyponatremia (04/01/24) Unspecified dementia, unspecified severity, without behavioral disturbance, psychotic disturbance, mood disturbance, and anxiety (04/01/24) Intervertebral disc disorders with radiculopathy, lumbar region (04/01/24) Radiculopathy, lumbar region (04/01/24) Dorsalgia, unspecified (04/01/24) Other malaise (04/01/24) Wedge compression fracture of third lumbar vertebra, initial encounter for closed fracture (04/01/24) Subjective Subjective Still working on bowel movement for patient, patient is eating without any significant abdominal pain or nausea or vomiting, does pass some small hard stools, has not got it much yet today but reports she thinks her pain is feeling somewhat better Objective Data Objective Data Vital Signs: Vital Signs Temp Pulse Resp BP Pulse Ox O2 Del Method 98.2 F 77 16 123/68 H 99 Room Air 04/05/24 16:06 04/05/24 16:06 04/05/24 16:06 04/05/24 16:06 04/05/24 16:06 04/05/24 16:07 Oxygen Delivery Method Room Air Weight: 50.53 kg Body Mass Index (BMI) 19.7 Intake & Output: Intake and Output for Last 24 Hours 04/03/24 04/04/24 04/05/24 23:59 23:59 23:59 Intake Total 2099 / 2100 550 / 550 650 / 650 Balance 2099 / 2100 550 / 550 650 / 650 Lab / Micro Data 04/02/24 08:42 04/02/24 08:42 Physical Exam Narrative General: Alert, no apparent distress HEENT: Atraumatic, normocephalic Eyes: extraocular movements grossly intact Neck: Supple Respiratory: normal respiratory effort Cardiovascular: no edema appreciated GI: nondistended, soft, no rebound, guarding, rigidity Extremities: Moving all extremities Neuro: No overt focal neurological deficits Psych: Cooperative Assessment & Plan Assessment/Plan (1) Intractable back pain: (2) Acute left lumbar radiculopathy: (3) Hyponatremia: (4) Dementia: (5) Debility: PLAN: Plan # Worsening low back pain with bilateral radiculopathy -MRI lumbar spine on admit showed acute?subacute mild L3 compression fracture with large L2-3 disc extrusion with superior migration resulting in markedly severe spinal canal stenosis and bilateral nerve root impingement -Evaluated by Ortho and no op therapy needed -Pain management consulted and patient for intra-articular joint injection today -Status post IV Solu-Medrol -Pain control -PT/OT for determination of SNF versus home with home health -04/05: Patient status post injection, does think her back pain is slightly better, to continue work with therapy, accepted to TCU and pending insurance approval #Constipation -Remains constipated, escalated bowel regimen, manual disimpaction yesterday evening unsuccessful -No significant abdominal pain, patient eating, no nausea or vomiting, no signs or symptoms of acute pathologic obstruction -Encourage mobilization Chronic medical conditions: ? Hypertension: Blood pressure fairly well-controlled, continue current medications ? Hyperlipidemia: Continue home Zetia. ? Type 2 diabetes mellitus: Patient only on metformin 500 daily at home, BMP glucoses had been within range for inpatient admission, do not think we need sliding scale at this time ? GERD: Continue home statin. ? Allergies: Continue home loratadine. DVT prophylaxis: Lovenox Time spent in the patient's overall evaluation,decision-making process, review of diagnostic data, adjustment of management, discussion with other providers, nursing nursing and ancillary staff involved in patient's care documentation, 36 minutes Charges/Coding Visit Charges Inpatient E&M: 56792 Subs Hosp L2
[2024-04-05 20:19] VITALS: BP 134/72; PULSE 89; RESP 18; TEMP 36.6; O2SAT 98
[2024-04-05] MEDS: Pantoprazole Sodium 20 MG Tablet PO (22:35)
[2024-04-06 05:11] VITALS: BP 144/71; PULSE 68; RESP 18; TEMP 36.4; O2SAT 94
[2024-04-06] MEDS: Acetaminophen 500 MG Tablet 1000 MG PO ×3 (05:18→20:59)
[2024-04-06] MEDS: Gabapentin 100 MG Capsule PO ×3 (08:07→16:12)
[2024-04-06] MEDS: Enoxaparin 40 MG/0.4 ML Syringe SC (08:08)
[2024-04-06] MEDS: Polyethylene Glycol 3350 17 GM PACKET PO ×2 (08:08→20:59)
[2024-04-06] MEDS: Lidocaine 5% Patch 1 PATCH TOPICAL (08:08)
[2024-04-06] MEDS: Calcium Carb/Vitamin D 1 TABLET Tablet PO (08:09)
[2024-04-06] MEDS: Senna/Docusate Sodium 1 Tablet PO ×2 (08:09→20:59)
[2024-04-06] MEDS: amLODIPine 10 MG Tablet PO (08:09)
[2024-04-06] MEDS: Loratadine 10 MG Tablet PO (08:09)
[2024-04-06] MEDS: Cholecalciferol (VIT D3) 25 MCG TABLET (1,000 UNITS) PO (08:10)
[2024-04-06] MEDS: Memantine Hydrochloride 10 MG Tablet PO (08:10)
[2024-04-06] MEDS: Ezetimibe 10 MG Tablet PO (08:10)
[2024-04-06] MEDS: Lactulose 20 GM/30 ML UDC PO (08:10)
[2024-04-06 08:46] VITALS: O2SAT 97
[2024-04-06 09:00] VITALS: RESP 18
[2024-04-06 11:00] VITALS: BP 154/58; PULSE 56; RESP 18; TEMP 36.9; O2SAT 98
--- NOTE | 2024-04-06 15:10 | CASEMGMT ---
Social Work- SW met with pt and pt spouse to update that precert has not been obtained at this time. Pt and spouse are agreeable to plan. SW will continue to follow up. MARKEL Brown
--- NOTE | 2024-04-06 15:41 | PCM.PN.HOSP ---
Reason for Visit Reason for Visit: Diagnoses Hypo-osmolality and hyponatremia (04/01/24) Unspecified dementia, unspecified severity, without behavioral disturbance, psychotic disturbance, mood disturbance, and anxiety (04/01/24) Intervertebral disc disorders with radiculopathy, lumbar region (04/01/24) Radiculopathy, lumbar region (04/01/24) Dorsalgia, unspecified (04/01/24) Other malaise (04/01/24) Wedge compression fracture of third lumbar vertebra, initial encounter for closed fracture (04/01/24) Subjective Subjective Still some back pain, did have substantial bowel movement Objective Data Objective Data Vital Signs: Vital Signs Temp Pulse Resp BP Pulse Ox O2 Del Method 98.4 F 56 L 18 154/58 H 98 Room Air 04/06/24 11:00 04/06/24 11:00 04/06/24 11:00 04/06/24 11:00 04/06/24 11:00 04/06/24 11:00 Oxygen Delivery Method Room Air Weight: 50.53 kg Body Mass Index (BMI) 19.7 Intake & Output: Intake and Output for Last 24 Hours 04/04/24 04/05/24 04/06/24 23:59 23:59 23:59 Intake Total 550 / 550 950 / 1250 700 / 700 Balance 550 / 550 950 / 1250 700 / 700 Lab / Micro Data 04/02/24 08:42 04/02/24 08:42 Physical Exam Narrative General: Alert, no apparent distress HEENT: Atraumatic, normocephalic Eyes: extraocular movements grossly intact Neck: Supple Respiratory: normal respiratory effort Cardiovascular: no edema appreciated GI: nondistended Extremities: Moving all extremities Neuro: No overt focal neurological deficits Psych: Cooperative Assessment & Plan Assessment/Plan (1) Intractable back pain: (2) Acute left lumbar radiculopathy: (3) Hyponatremia: (4) Dementia: (5) Debility: PLAN: Plan # Worsening low back pain with bilateral radiculopathy -MRI lumbar spine on admit showed acute?subacute mild L3 compression fracture with large L2-3 disc extrusion with superior migration resulting in markedly severe spinal canal stenosis and bilateral nerve root impingement -Evaluated by Ortho and no op therapy needed -Pain management consulted and patient for intra-articular joint injection today -Status post IV Solu-Medrol -Pain control -PT/OT for determination of SNF versus home with home health -04/05: Patient status post injection, does think her back pain is slightly better, to continue work with therapy, accepted to TCU and pending insurance approval -04/05: Patient working with physical therapy, still some back pain but it is improved from previous, awaiting insurance approval for TCU #Constipation -Remains constipated, escalated bowel regimen, manual disimpaction yesterday evening unsuccessful -No significant abdominal pain, patient eating, no nausea or vomiting, no signs or symptoms of acute pathologic obstruction -Encourage mobilization -04/05: Patient had significant bowel movement, will back off of bowel regimen #Hypertension -Patient still on Norvasc, lisinopril added at low-dose, can titrate -Given her previous low sodiums will not resume hydrochlorothiazide Chronic medical conditions: ? Hyperlipidemia: Continue home Zetia. ? Type 2 diabetes mellitus: Patient only on metformin 500 daily at home, BMP glucoses had been within range for inpatient admission, do not think we need sliding scale at this time ? GERD: Continue home statin. ? Allergies: Continue home loratadine. DVT prophylaxis: Lovenox Charges/Coding Visit Charges Inpatient E&M: 64963 Subs Hosp L1
[2024-04-06] MEDS: Lisinopril 2.5 MG Tablet PO (16:14)
[2024-04-06 16:49] VITALS: BP 161/66; PULSE 58; RESP 18; TEMP 36.7; O2SAT 98
[2024-04-06 20:51] VITALS: BP 122/60; PULSE 73; RESP 18; TEMP 36.5; O2SAT 97
[2024-04-06] MEDS: Pantoprazole Sodium 20 MG Tablet PO (20:59)
[2024-04-07 03:53] VITALS: BP 133/68; PULSE 67; RESP 18; TEMP 36.3; O2SAT 100
[2024-04-07] MEDS: Acetaminophen 500 MG Tablet 1000 MG PO ×2 (05:58→13:03)
[2024-04-07] MEDS: Lidocaine 5% Patch 1 PATCH TOPICAL (08:11)
[2024-04-07] MEDS: Gabapentin 100 MG Capsule PO ×2 (08:11→13:03)
[2024-04-07] MEDS: Calcium Carb/Vitamin D 1 TABLET Tablet PO (08:12)
[2024-04-07] MEDS: Loratadine 10 MG Tablet PO (08:12)
[2024-04-07] MEDS: Memantine Hydrochloride 10 MG Tablet PO (08:12)
[2024-04-07] MEDS: Enoxaparin 40 MG/0.4 ML Syringe SC (08:12)
[2024-04-07] MEDS: Ezetimibe 10 MG Tablet PO (08:12)
[2024-04-07] MEDS: Cholecalciferol (VIT D3) 25 MCG TABLET (1,000 UNITS) PO (08:12)
[2024-04-07] MEDS: amLODIPine 10 MG Tablet PO (08:15)
[2024-04-07] MEDS: Lisinopril 2.5 MG Tablet PO (08:15)
--- NOTE | 2024-04-07 09:31 | CASEMGMT ---
Discharge Planning A list of?HH providers including quality and resource use data and consistent with the patient's preferred geographic region, medical needs, and insurance network was created in [facility] Guide.? This list was provided to the RN DENICE. Loni Garnica, Discharge Planning Asst.
[2024-04-07 10:00] VITALS: BP 136/72; PULSE 70; RESP 18; TEMP 36.7; O2SAT 100
--- NOTE | 2024-04-07 14:21 | CASEMGMT ---
Addendum entered by Kavita Dawson 04/07/24 15:31: Social Work- Precert has been obtained.? Physician updated and pt is ready for discharge today.? Paperwork faxed to TCU. SW met with pt and pt SO; they are agreeable to discharge plan as stated above.? Bedside nurse notified of discharge time. Disposition:TCU, skilled level of care under convalescent stay. MARKEL Brown Original Note: Social Work- SW met with pt spouse and pt to advise that precert was obtained. Plan: TCU MARKEL Brown
--- NOTE | 2024-04-07 14:25 | TREXTCAR_ITS ---
Diet Diet Order/Speech Therapy: 04/01/24 10:39 Diet: Regular - General Food consistency:: Regular Liquid Consistency:: Regular/Thin Is pt able to select menu?: Yes Routine Orders/Code Status Suppository Type: Dulcolax 10mg Suppository Frequency: Daily PRN Wound(s) LOWER BACK: Wound Type: Puncture Therapies Physical Therapy: Eval and Treat Occupational Therapy: Eval and Treat Problem/Diagnosis (1) Intractable back pain: Status: Acute Code(s): M54.9 - Dorsalgia, unspecified (2) Acute left lumbar radiculopathy: Status: Acute Code(s): M54.16 - Radiculopathy, lumbar region (3) Hyponatremia: Status: Acute Code(s): E87.1 - Hypo-osmolality and hyponatremia (4) Dementia: Status: Acute Code(s): F03.90 - Unspecified dementia, unspecified severity, without behavioral disturbance, psychotic disturbance, mood disturbance, and anxiety (5) Debility: Status: Acute Code(s): R53.81 - Other malaise Plan # Worsening low back pain with bilateral radiculopathy?subacute mild L3 compression fracture with large L2-3 disc extrusion with superior migration resulting in markedly severe spinal canal stenosis and bilateral nerve root impingement #Constipation- resolved #Hypertension ? Hyperlipidemia: ? Type 2 diabetes mellitus: ? GERD: 83-year-old female history of GERD, diabetes, dementia, hypertension who presented to [facility] ED 04/01/2024 due to low back pain with bilateral radiculopathy. MRI showed acute/subacute mild L3 compression fracture with a large L2-3 disc extrusion with superior margination so orthopedic surgery was consulted. No surgical intervention indicated so pain management consulted and patient had injection 04/04/2024 which has begun to improve her pain. Hospitalization was complicated by significant constipation that was relieved with aggressive bowel regimen. On day of discharge patient with no new complaints. Allergies/Procedures Done in Hospital Allergies No Known Allergies Allergy (Verified 04/01/24 08:54) Procedures: - (Pain management injection) Type of Care/Length of Stay Estimated LOS: Convalescent Care Less Than 30 days Type of Care Needed: Skilled Rehab Potential: Fair Prognosis: Fair Additional Orders/Day of Discharge Day of Discharge: 04/07/24 Dietary and Speech Recommendations Dietitian Recommendations/Changes: Continue liberal regular diet d/t dementia - if bld gluc consistently >175 then can change to 1500 nati consistent cho diet to help manage diabetes Discharge Plan Admission Admit Date/Time: 04/01/24 09:54 Primary Reason for Your Visit: Back pain Attending Provider: Shirley Coronado Primary Care Provider: Wilfred Prado Consulting Providers: Yuan Tolliver; Arnol Garcia; Wilbur Brock Discharge Orders/Prescriptions Prescriptions: New sennosides-docusate sodium [Stimulant Laxative Plus] 8.6-50 mg Tablet 1 tab PO BID Qty: 30 0RF lisinopril 2.5 mg Tablet 2.5 mg PO DAILY Qty: 30 0RF Continued ezetimibe [Zetia] 10 mg tablet 10 mg PO DAILY omega 2-tzr-gqv-fish oil [Fish Oil] 300-1,000 mg capsule 1 cap PO DAILY amlodipine 10 MG tablet 10 mg PO DAILY flaxseed oil 1,000 MG capsule 1,000 mg PO DAILY cholecalciferol (vitamin D3) 1,000 UNIT tablet 1,000 unit PO DAILY calcium carbonate-vitamin D3 500 mg-15 mcg (600 unit) tablet 1 tab PO DAILY memantine 10 mg tablet 10 mg PO DAILY omeprazole 20 mg capsule,delayed release(DR/EC) 20 mg PO QHS loratadine [Claritin] 10 mg tablet 10 mg PO DAILY cyclosporine [Restasis] 0.05 % dropperette 1 drp EACH EYE DAILY diclofenac sodium [Aleve (diclofenac)] 1 % gel 1 ea topical TID PRN Patient Comments: 1 application as needed, follow instructions on label. Changed gabapentin 100 mg capsule 100 mg PO TID 5 Days Qty: 15 0RF Discontinued lisinopril-hydrochlorothiazide 10-12.5 mg tablet 1 tab PO DAILY metformin 500 MG tablet extended release 24 hr 500 mg PO DAILY Patient Comments: meloxicam 15 mg tablet 15 mg PO DAILY cyclobenzaprine 5 mg tablet 5 mg PO TID dicyclomine 20 mg tablet 20 mg PO BID gabapentin 300 mg capsule 300 mg PO TID hydrocodone-acetaminophen 5-325 mg tablet 1 tab PO TID PRN (Reason: pain) 3 Days Qty: 9 0RF Referrals / Follow Up: Wilfred Prado MD [Primary Care Provider] - Within 1 Week Disposition Disposition (needs filled in before D/C Order can be placed): [facility]
--- NOTE | 2024-04-07 15:09 | PCM.DC.SUM ---
Providers Date of Admission: 04/01/24 Date of Discharge: 04/07/24 Primary Care Physician: Dr. Wilfred Prado MD Consultations 04/01/24 12:58 Consult: Orthopedics Routine Consulting Provider: Yuan Tolliver Reason for Consult: large L2-3 disc extrusion w/ markedly severe spinal canal stenosis EMERGENT Consult: No MD Notified: Yes Date Notified: 04/01/24 Time Notified: 13:09 Method of Notification: Text 04/01/24 17:21 Consult: Pain Management Routine Consulting Provider: Arnol Garcia Reason for Consult: Low back pain with disc herniation, ortho recs for conservative mgmt EMERGENT Consult: No MD Notified: Yes Date Notified: 04/01/24 Time Notified: 17:21 Method of Notification: Answering Service Reason For Visit: INTRACTABLE LOW BACKPAIN W/ BILATERAL RADICULOPATH Diagnosis Discharge Diagnosis (1) Intractable back pain: Status: Acute Code(s): M54.9 - Dorsalgia, unspecified (2) Acute left lumbar radiculopathy: Status: Acute Code(s): M54.16 - Radiculopathy, lumbar region (3) Hyponatremia: Status: Acute Code(s): E87.1 - Hypo-osmolality and hyponatremia (4) Dementia: Status: Acute Code(s): F03.90 - Unspecified dementia, unspecified severity, without behavioral disturbance, psychotic disturbance, mood disturbance, and anxiety (5) Debility: Status: Acute Code(s): R53.81 - Other malaise Plan # Worsening low back pain with bilateral radiculopathy?subacute mild L3 compression fracture with large L2-3 disc extrusion with superior migration resulting in markedly severe spinal canal stenosis and bilateral nerve root impingement #Constipation- resolved #Hypertension ? Hyperlipidemia: ? Type 2 diabetes mellitus: ? GERD: Medications at Discharge Home Medications amlodipine 10 mg tablet 10 mg PO DAILY see physic 04/30/17 cholecalciferol (vitamin D3) 25 mcg (1,000 unit) tablet 1,000 unit PO DAILY supplement 11/14/19 flaxseed oil 1,000 mg capsule 1,000 mg PO DAILY supplement 11/14/19 ezetimibe 10 mg tablet (Zetia) 10 mg PO DAILY see physician 08/11/22 calcium carbonate 500 mg-vitamin D3 15 mcg (600 unit) tablet 1 tab PO DAILY supplem 02/10/23 omega 9-nwr-kkm-fish oil 300 mg-1,000 mg capsule (Fish Oil) 1 cap PO DAILY supplement 02/10/23 cyclosporine 0.05 % eye drops in a dropperette (Restasis) 1 drp EACH EYE DAILY dry eyes 04/01/24 diclofenac sodium 1 % topical gel (Aleve (diclofenac)) 1 ea topical TID PRN pain 04/01/24 loratadine 10 mg tablet (Claritin) 10 mg PO DAILY allergies 04/01/24 memantine 10 mg tablet 10 mg PO DAILY dementia 04/01/24 omeprazole 20 mg capsule,delayed release 20 mg PO QHS acid reflex 04/01/24 gabapentin 100 mg capsule 100 mg PO TID pain 5 days #15 caps 04/07/24 lisinopril 2.5 mg tablet 2.5 mg PO DAILY #30 tabs 04/07/24 sennosides 8.6 mg-docusate sodium 50 mg tablet (Stimulant Laxative Plus) 1 tab PO BID #30 tabs 04/07/24 Hospital Course Procedures - (Lumbar spine injection with pain management) Summary of Care Provided Minutes Spent on Discharge: 25 Hospital Course: 83-year-old female history of GERD, diabetes, dementia, hypertension who presented to [facility] ED 04/01/2024 due to low back pain with bilateral radiculopathy. MRI showed acute/subacute mild L3 compression fracture with a large L2-3 disc extrusion with superior margination so orthopedic surgery was consulted. No surgical intervention indicated so pain management consulted and patient had injection 04/04/2024 which has begun to improve her pain. Hospitalization was complicated by significant constipation that was relieved with aggressive bowel regimen. On day of discharge patient with no new complaints. Physical Exam Narrative General: Alert, no apparent distress HEENT: Atraumatic, normocephalic Eyes: extraocular movements grossly intact Neck: Supple Respiratory: normal respiratory effort Cardiovascular: no edema appreciated GI: nondistended Extremities: Moving all extremities Neuro: No overt focal neurological deficits Psych: Cooperative Weight / BMI Weight Weight: 50.53 kg Body Mass Index (BMI) 19.7 ABG / Lab / Microbiology Data 04/02/24 08:42 04/02/24 08:42 D/C Instructions Discharge Diet: No restrictions Meaningful Use Info Meaningful Use Meaningful Use Diagnoses (Choose all that apply): None applicable Ischemic Stroke Statin Dosing Therapy Reference: STATIN DOSE THERAPY REFERENCE: * Patients > 75 years receive moderate or high dose statin therapy. * Patients 75 years or YOUNGER should receive HIGH intensity statin dose unless contraindicated. You will be required to document reason for non-treatment if statin daily dose does not meet guidelines. HIGH DOSE STATIN THERAPY DAILY Atorvastatin > than or = to 40 mg Rosuvastatin > than or = to 20 mg Amlodipine + Atorvastatin > than or = to 2.5/40 mg Ezetimibe + Simvastatin 10/80 mg Simvastatin 80mg Discharge Plan Admission Admit Date/Time: 04/01/24 09:54 Primary Reason for Your Visit: Back pain Attending Provider: Shirley Coronado Primary Care Provider: Wilfred Prado Consulting Providers: Yuan Tolliver; Arnol Garcia; Wilbur Brock Instructions Patient Instructions: ED Fall Prevention Discharge Orders/Prescriptions Prescriptions: New sennosides-docusate sodium [Stimulant Laxative Plus] 8.6-50 mg Tablet 1 tab PO BID Qty: 30 0RF lisinopril 2.5 mg Tablet 2.5 mg PO DAILY Qty: 30 0RF Continued ezetimibe [Zetia] 10 mg tablet 10 mg PO DAILY omega 6-vcv-xxv-fish oil [Fish Oil] 300-1,000 mg capsule 1 cap PO DAILY amlodipine 10 MG tablet 10 mg PO DAILY flaxseed oil 1,000 MG capsule 1,000 mg PO DAILY cholecalciferol (vitamin D3) 1,000 UNIT tablet 1,000 unit PO DAILY calcium carbonate-vitamin D3 500 mg-15 mcg (600 unit) tablet 1 tab PO DAILY memantine 10 mg tablet 10 mg PO DAILY omeprazole 20 mg capsule,delayed release(DR/EC) 20 mg PO QHS loratadine [Claritin] 10 mg tablet 10 mg PO DAILY cyclosporine [Restasis] 0.05 % dropperette 1 drp EACH EYE DAILY diclofenac sodium [Aleve (diclofenac)] 1 % gel 1 ea topical TID PRN Patient Comments: 1 application as needed, follow instructions on label. Changed gabapentin 100 mg capsule 100 mg PO TID 5 Days Qty: 15 0RF Discontinued lisinopril-hydrochlorothiazide 10-12.5 mg tablet 1 tab PO DAILY metformin 500 MG tablet extended release 24 hr 500 mg PO DAILY Patient Comments: meloxicam 15 mg tablet 15 mg PO DAILY cyclobenzaprine 5 mg tablet 5 mg PO TID dicyclomine 20 mg tablet 20 mg PO BID gabapentin 300 mg capsule 300 mg PO TID hydrocodone-acetaminophen 5-325 mg tablet 1 tab PO TID PRN (Reason: pain) 3 Days Qty: 9 0RF Referrals / Follow Up: Wilfred Prado MD [Primary Care Provider] - Within 1 Week Disposition Disposition (needs filled in before D/C Order can be placed): [facility] Charges/Coding Visit Charges Inpatient E&M: 92577 Disch Hosp
[2024-04-07 16:00] VITALS: BP 130/75; PULSE 80; RESP 18; TEMP 37.1; O2SAT 98
== END 2024-04-07 17:09 | disposition skilled nursing facility (03) | DRG 544 ==
LOC: ED 10:10 → MS3 10:38
PROVIDERS: Anesthesiology Pain Medicine; Admitting Provider Hospitalist; Emergency Provider Emergency Medicine; PCP Family Medicine; Visit Provider Internal Medicine
PROC: 3E0S3BZ Introduction of Anesthetic Agent into Epidural Space, Percutaneous Approach (ICD-10-PCS; CPT 62322; principal; 2024-04-04 12:55)
DX: M48.56XA Collapsed vertebra, not elsewhere classified, lumbar region, initial encounter for fracture (principal); E11.9 Type 2 diabetes mellitus without complications; F03.90 Unspecified dementia, unspecified severity, without behavioral disturbance, psychotic disturbance, mood disturbance, and anxiety; I10 Essential (primary) hypertension; K21.9 Gastro-esophageal reflux disease without esophagitis; E78.5 Hyperlipidemia, unspecified; M48.061 Spinal stenosis, lumbar region without neurogenic claudication; M54.16 Radiculopathy, lumbar region; K59.00 Constipation, unspecified; X58.XXXA Exposure to other specified factors, initial encounter; R53.81 Other malaise; Z79.84 Long term (current) use of oral hypoglycemic drugs; Z79.899 Other long term (current) drug therapy; Z87.891 Personal history of nicotine dependence
CPT/HCPCS: 36415; 64483; 72020; 72148; 80048; 81001; 85025; 85027; 97162; 97165; 97530; 97535; 97802; 99283; 99284; A4216; J2405

== ENCOUNTER 2024-04-07 17:18 | Inpatient (IN) | payer MEDICARE, SELFPAY ==
[2024-04-07 17:25] VITALS: BMI 19.2
[2024-04-07 17:31] VITALS: BMI 19.8
[2024-04-07 17:37] VITALS: BP 132/60; PULSE 89; RESP 16; TEMP 35.8; O2SAT 98
[2024-04-07 18:01] VITALS: PULSE 89; RESP 16; O2SAT 98
--- NOTE | 2024-04-07 18:48 | NURSING ---
THIS NURSE IN [place] TURNED CORNER BY ROOM 9 AND SEEN PT DOWN BY KITCHEN WALKING AROUND WITH OUT WALKER. WENT TO PT AND ASKED PT WHERE SHE WAS GOING .PT STATED BOBBY GOING HOME. REDIRECTED PT TO HER ROOM. PT STATED TO THIS NURSE THAT SHE WASN'T STAYING HERE. DID 1 ON 1 WITH PT AND SHE GOT TEARY EYED AND STATED I WANT MY . THIS NURSE CALLED AND PT TALKING TO HIM. CAME IN A SHORT TIME LATER THEN DAUGHTER. NEW ORDER FOR ALARMS AND PLACED. RN AND DR. ART AWARE.
--- NOTE | 2024-04-07 19:13 | NURSING ---
Pt found wondering halls without walker. Pt assisted back to room educated on using call light if needing assistance. Pt continues to be agitated and walking with out assist. Dr. Elmore notified N.O. for Ativan 0.5mg q4h prn for Anxiety, Restlessness, and sleep. Order read back.
[2024-04-07] MEDS: LORazepam 0.5 MG Tablet PO (19:30)
[2024-04-07] MEDS: Pantoprazole Sodium 20 MG Tablet PO (20:33)
[2024-04-07] MEDS: Senna/Docusate Sodium 1 Tablet PO (20:34)
[2024-04-07] MEDS: Gabapentin 100 MG Capsule PO (20:36)
[2024-04-07] MEDS: Menthol/Lanolin/Calamine/Znox 113 GM Tube 1 APPLIC TOPICAL (20:42)
[2024-04-07] MEDS: Petrolatum 33% Tube 1 APPLIC TOPICAL (20:43)
--- NOTE | 2024-04-07 20:48 | PCM.HP.STD ---
HPI - General General Date of Admission: 04/07/24 Date of Service: 04/07/24 Chief Complaint: Here for rehabilitation. HPI Narrative 04/01/2024 CHANNING JEFFERY, is a 83 Female who presents to [facility] ED with back pain. Back pain for 2 months, X-ray showed arthritis. MRI ordered, seen in ED 1 day prior, given [place]. Unable to sleep, severe back pain radiating down both legs. No bowel movement for 4 days, no urinary incontinence. Able to walk with assistance. No red flag symptoms for cauda equina syndrome. 04/01/2024 Admit [facility]. MRI lumbar spine showed mild L3 compression fracture, large L2-3 disc extrusion, severe spinal canal stenosis, bilateral nerve root impingement. Consult Ortho spine, PT/OT, pain control, gabapentin 100mg tid, for low back pain. Has dementia. A1c 6.5. Dr. Tolliver recommend non surgical treatment for now. 04/02/2024 Sitting, comfortably in bed. IV steroids for low back pain. Pain management planning epidural steroid injection. Sodium 131 to 135. Dementia with slow decline. 04/03/2024 Sitting comfortably in bed, pain with movement. PT/OT for discharge planning. Hold Lisinopril HCT. 04/04/[address] Garcia for epidural steroid injection. PT/OT for SNF versus Home with [facility]. 04/05/2024 Constipated, pain improved. Pain improved after epidural steroid injection. Pre-CERT for TCU. 04/06/2024 Back pain persists, good BM> PT/OT TCU. 04/07/2024 Admit to TCU with debility, here for rehabiitation, strengthening, prior to discharge home with . Resident demented, confused, wandering, restless. [facility] Medical History Dementia Chronic diastolic (congestive) heart failure Hemorrhoids Type 2 diabetes mellitus Hyperlipidemia Essential (primary) hypertension Cyst of left kidney Pleural effusion on left Pneumonia Secondary pulmonary arterial hypertension Non-rheumatic mitral valve stenosis Mitral valve annular calcification PAUL (acute kidney injury) SIRS (systemic inflammatory response syndrome) (11/18/19) Home Medications ?Medication ?Instructions ?Recorded ?Last Taken ?Type amlodipine 10 mg tablet 10 mg PO DAILY see physic 04/30/17 11/17/19 History cholecalciferol (vitamin D3) 25 1,000 unit PO DAILY supplement 11/14/19 11/17/19 History mcg (1,000 unit) tablet flaxseed oil 1,000 mg capsule 1,000 mg PO DAILY supplement 11/14/19 11/17/19 History ezetimibe 10 mg tablet (Zetia) 10 mg PO DAILY see physician 08/11/22 Unknown History calcium carbonate 500 mg-vitamin 1 tab PO DAILY supplement 02/10/23 Unknown History D3 15 mcg (600 unit) tablet omega 5-ykj-jed-fish oil 300 1 cap PO DAILY supplement 02/10/23 Unknown History mg-1,000 mg capsule (Fish Oil) cyclosporine 0.05 % eye drops in a 1 drp EACH EYE DAILY dry eyes 04/01/24 Unknown History dropperette (Restasis) diclofenac sodium 1 % topical gel 1 ea topical TID PRN pain 04/01/24 Unknown History (Aleve (diclofenac)) loratadine 10 mg tablet (Claritin) 10 mg PO DAILY allergies 04/01/24 Unknown History memantine 10 mg tablet 10 mg PO DAILY dementia 04/01/24 Unknown History omeprazole 20 mg capsule,delayed 20 mg PO QHS acid reflex 04/01/24 Unknown History release gabapentin 100 mg capsule 100 mg PO TID pain 5 days #15 caps 04/07/24 Unknown Rx lisinopril 2.5 mg tablet 2.5 mg PO DAILY BP #30 tabs 04/07/24 Unknown Rx sennosides 8.6 mg-docusate sodium 1 tab PO BID Constipation #30 tabs 04/07/24 Unknown Rx 50 mg tablet (Stimulant Laxative Plus) Allergy/AdvReac Type Severity Reaction Status Date / Time No Known Allergies Allergy Verified 04/01/24 08:54 Social History (Updated 04/07/24 @ 20:[address] Sumeet Elmore MD) household members: spouse Smoking Status: Former smoker alcohol intake: current alcohol intake frequency: a few times a week Alcohol type: wine substance use type: does not use caffeine: Yes Type: coffee Number of servings: 2 ROS Constitutional Constitutional: Denies chills, fever(s) or weight gain ENT HEENT: Denies headache(s), nasal congestion or nasal discharge Cardiovascular Cardiovascular: Denies chest pain or palpitations Respiratory/Chest Respiratory/Chest: Denies cough, excessive phlegm production or shortness of breath with exertion Gastrointestinal Gastrointestinal: Denies abdominal pain, nausea or vomiting Genitourinary Genitourinary: Denies dysuria Musculoskeletal Musculoskeletal: Denies joint pain or joint swelling Integumentary Integumentary: Denies rash or wounds Neurologic Neurologic: Denies focal weakness, numbness or tingling Psychiatric Psychiatric: Denies anxiety, auditory hallucinations, depression, homicidal ideation or suicidal ideation Vital Signs Vital Signs Vital Signs: 04/07/24 17:37 04/07/24 18:01 Temperature 96.5 F L Temperature Source Temporal Pulse Rate 89 89 Pulse Rhythm Regular Pulse Strength Normal (2+) Respiratory Rate 16 16 Respiratory Effort Normal Non-Labored Respiratory Depth Normal Respiratory Pattern Normal Blood Pressure 132/60 H Blood Pressure Mean 84 Blood Pressure Source Monitor Pulse Ox 98 98 Oxygen Delivery Method Room Air Room Air Weight Weight: 49.26 kg Body Mass Index (BMI) 19.8 Physical Exam Const alert General Appearance: cooperative HEENT normocephalic Eyes PERRL and EOMs intact bilaterally Neck supple, no JVD and no carotid bruits Resp normal respiratory effort, normal air movement and clear to auscultation bilaterally Cardio regular rate and regular rhythm GI normal to inspection, nondistended, normoactive bowel sounds, non-tender and non-distended Extremity normal capillary refill General Extremity: Negative for edema Skin no rashes or lesions noted General Skin Exam: no breakdown Psych affect normal Appearance: appropriate Assessment & Plan Assessment/Plan (1) Debility: (2) Intractable back pain: (3) Lumbar disc herniation with radiculopathy: (4) Lumbar compression fracture: QUALIFIERS: Encounter type: initial encounter Lumbar vertebra fracture level: L3 Qualified Code(s): S32.030A - Wedge compression fracture of third lumbar vertebra, initial encounter for closed fracture (5) Alzheimer disease: (6) Lumbar spinal stenosis: (7) Hyponatremia: (8) Diabetes mellitus: (9) Essential (primary) hypertension: (10) Vitamin D deficiency: (11) Hyperlipidemia: (12) Neuropathic pain: PLAN: Plan 83 year old female with below past medical history significant for moderate Alzheimer Disease, hospitalized for intractable low back pain 2/2 lumbar disc herniation with radiculopathy, lumbar spinal stenosis, underwent epidural steroid injection 04/04/[address] Garcia, admitted to TCU with debility, here for rehabilitation, strengthening, prior to discharge home with . Debility - PT/OT. Pain - Tylenol 1000mg q6 prn pain (1-3), Tramadol 50mg q6 prn pain (4-5), Oxycodone 5mg q4 prn pain (6-10), Arthritis pain topical tid prn. Bowel - Miralax 17gm daily, Senna/colace 2 tablets bid, Magnesium citrate 300ml daily prn. Adult immunization - Administer pneumonia vaccine, covid vaccine, flu vaccine as appropriate. DVT prophylaxis - Lovenox 40mg sc daily. Hypertension - Lisinopril 2.5mg daily, Amlodipine 10mg daily. Calcium deficiency - Calcium D 1 tablet daily. Vitamin D deficiency - D3 25mcg daily. Hyperlipidemia - Zetia 10mg daliy, [place] 3 1gm daily. Neuropathic pain - Gabapentin 100mg tid. Allergic rhinitis - Loratadine 10mg daily. Anxiety/restlessness/sleep - Lorazepam 0.5mg q4 prn. Alzheimer Disease - Memantine 10mg daily. Skin irritation - Calmoseptine topical bid, Eucering topical bid. GERD - Pantoprazole 20mg qhs. Dry eyes - Artificial Tears 1gtt ou q2h prn.
[2024-04-08 05:58] LABS: Absolute Lymphocyte Count 1.13 X10^3/uL (0.83-4.51); Absolute Neutrophil Count 6.9 X10^3/uL (2.0-7.7); Basophil# 0.02 X10^3/uL; Basophil% 0.2 % (0-1); Eosinophil# 0.01 X10^3/uL; Eosinophils% 0.1 % (0-5); Hematocrit 41.5 % (37-47); Hemoglobin 13.7 g/dL (12.0-15.0); Lymphocyte # 1.13 X10^3/ul (0.83-4.51); Lymphocyte % 12.9 % (19-41); Mean Corpuscular Hgb 30.2 pg (27.0-32.0); Mean Corpuscular Volume 91.6 fL (81-99); Mean Platelet Vol. 10.1 fl (6.2-12.0); Monocyte# 0.67 X10^3/uL; Monocyte% 7.7 % (0-10); NRBC Flagged by Analyzer 0 % (0-5); Neutrophil # 6.86 X10^3/uL (2.7-7.7); Neutrophil % 78.4 % (47-70); Platelet Count 348 K/mm3 (150-450); RBC Distribution Width CV 12.9 % (11.6-14.6); RBC Distribution Width SD 43.5 fl (35.1-43.9); Red Blood Count 4.53 M/mm3 (4.2-5.4); White Blood Count 8.8 K/mm3 (4.4-11.0)
[2024-04-08] MEDS: Enoxaparin 40 MG/0.4 ML Syringe SC (06:09)
[2024-04-08] MEDS: Gabapentin 100 MG Capsule PO ×3 (06:09→20:35)
[2024-04-08 07:02] LABS: Anion Gap 5 (5-15); BUN 23 mg/dL (7-18); Chloride 108 mmol/L (98-107); EST Glomerular Filtration Rate 85 mL/min (>60); Est Glom Filt Rate - Afr Amer 103 mL/min (>60); Estimated Creatinine Clearance 40.71 ml/min; Glucose 176 mg/dL (74-106); Potassium 4.2 mmol/L (3.5-5.1); Sodium Level 138 mmol/L (136-145)
[2024-04-08 08:54] VITALS: BP 129/65; PULSE 92; RESP 16; TEMP 36.4; O2SAT 98
[2024-04-08] MEDS: Cholecalciferol (VIT D3) 25 MCG TABLET (1,000 UNITS) PO (09:05)
[2024-04-08] MEDS: Omega-3 Acid Ethyl Esters 1 GM Capsule PO (09:05)
[2024-04-08] MEDS: Memantine Hydrochloride 10 MG Tablet PO (09:05)
[2024-04-08] MEDS: amLODIPine 10 MG Tablet PO (09:05)
[2024-04-08] MEDS: Calcium Carb/Vitamin D 1 TABLET Tablet PO (09:05)
[2024-04-08] MEDS: Ezetimibe 10 MG Tablet PO (09:05)
[2024-04-08] MEDS: Lisinopril 2.5 MG Tablet PO (09:05)
[2024-04-08] MEDS: Menthol/Lanolin/Calamine/Znox 113 GM Tube 1 APPLIC TOPICAL ×2 (09:06→20:35)
[2024-04-08] MEDS: Petrolatum 33% Tube 1 APPLIC TOPICAL ×2 (09:06→20:34)
[2024-04-08] MEDS: Loratadine 10 MG Tablet PO (09:06)
[2024-04-08] MEDS: 0.9% Saline Lock 10 ML Syringe IV ×2 (09:08→20:34)
[2024-04-08] MEDS: Tuberculin,Purif.prot.deriv. 50 TU/ML Vial 0.1 ML ID (09:12)
[2024-04-08] MEDS: Arthritis Pain Compound 60 CLICK TUBE TOPICAL (09:19)
[2024-04-08] MEDS: Acetaminophen 500 MG Tablet 1000 MG PO (09:21)
--- NOTE | 2024-04-08 10:12 | NURSING ---
SALES ASSISTANT DISPLAYS reporting pt c/o low back pain especially when urinating, noted to have frequency. dr pak updated, new order for UA & culture.
--- NOTE | 2024-04-08 10:30 | NURSING ---
City Bus Driver Note; Activity Asset: Es Dunn is independent in her choice of daily activities with reminders. She enjoys spending time w/her family, reading or watching tv. She will work on word puzzles to pass the time when not resting. Mona welcomes visits from the impregnator and drier helper and therapy dog when available. Staff will encourage group socialization, remind her of weekly activities and respect her right to say no.
[2024-04-08 11:47] LABS: Bacteria 0 SEEN /hpf (None Seen); Mucous, Urine 0 SEEN /hpf (<or=2+); Red Blood Cells-Urine 0 SEEN /hpf (0-5); Squamous Epithelial Cells - UA 0 SEEN /hpf (5-10); White Blood Cells 0 SEEN /hpf (0-5)
[2024-04-08 11:51] LABS: Color, Urine Yellow (Yellow); Glucose, Dipstick 1000 mg/dl (Normal); Ketone-Dipstick Negative (Negative); Leukocyte Esterase-Dipstick Negative /ul (Negative); Nitrite-Dipstick Negative (Negative); Occult Blood-Urine Negative /ul (Negative); Protein-Dipstick Negative (Negative); Specific Gravity, Urine 1.015 (1.002-1.030); Urine Bilirubin Dipstick Negative (Negative); Urine Clarity Sl. Cloudy (Clear); Urine Urobilinogen Normal (Normal)
--- NOTE | 2024-04-08 11:55 | NURSING ---
pt confused d/t alzheimer/dementia diagnosis, repeats questions not too long after getting answer from staff. no agitation today, pt needs oriented to the call light & how to use it. wanderguard placed to rt ankle for pt safety d/t risk of possible wandering. pt does have chair and bed alarm in place.
--- NOTE | 2024-04-08 13:41 | NURSING ---
SPOKE WITH REGARDING CODE STATUS- PT TO BE DNRCCA NO INTUBATION, PAPER IN CHART SIGNED BY DR BLUE.
--- NOTE | 2024-04-08 13:48 | PCM.PN.DRR ---
Documented by User: Janusz Cortez 04/08/24 13:55 TCU RX Drug Regimen Review Subjective/Objective Subjective/Objective: Subjective: TCU admission note. 83 year old female with below past medical history significant for moderate Alzheimer Disease, hospitalized for intractable low back pain 2/2 lumbar disc herniation with radiculopathy, lumbar spinal stenosis, underwent epidural steroid injection 04/04/[address] Garcia, admitted to TCU with debility, here for rehabilitation, strengthening, prior to discharge home with . Objective: Allergies No Known Allergies Allergy (Verified 04/01/24 08:54) Current Medications Generic Name Dose Route Start Last Admin Trade Name Freq PRN Reason Stop Dose Admin Acetaminophen 1,000 mg 04/07/24 21:07 04/08/24 09:21 Acetaminophen 500 Mg Tablet PO 1,000 mg Q6H PRN PRN Administration Pain Score 1-3 Amlodipine Besylate 10 mg 04/08/24 10:00 04/08/24 09:05 Amlodipine 10 Mg Tablet PO 10 mg DAILY SERGIO Administration Protocol Calamine/Phenol 1 applic 04/07/24 22:00 04/08/24 09:06 Menthol/Lanolin/Calamine/Znox 113 Gm Tube TOPICAL 1 applic BID SERGIO Administration Protocol Calcium/Vitamin D 1 tablet 04/08/24 10:00 04/08/24 09:05 Calcium Carb/Vitamin D 1 Tablet Tablet PO 1 tablet DAILY SERGIO Administration Cholecalciferol 25 mcg 04/08/24 10:00 04/08/24 09:05 Cholecalciferol (Vit D3) 25 Mcg Tablet (1,000 Units) PO 25 mcg DAILY SERGIO Administration Compound Med 1 click 04/07/24 18:30 04/08/24 09:19 Arthritis Pain Compound 60 Click Tube TOPICAL 1 click TID PRN PRN Administration Pain Score 1-10 Ezetimibe 10 mg 04/08/24 10:00 04/08/24 09:05 Ezetimibe 10 Mg Tablet PO 10 mg DAILY SERGIO Administration Enoxaparin Sodium 40 mg 04/08/24 06:00 04/08/24 06:09 Enoxaparin 40 Mg/0.4 Ml Syringe SC 40 mg DAILY@0600 SERGIO Administration Gabapentin 100 mg 04/07/24 22:00 04/08/24 06:09 Gabapentin 100 Mg Capsule PO 100 mg TID SERGIO Administration Glycerin/Hypromellose/Polyethylene 1 drp 04/08/24 10:00 Glycerin/Hypromellose/[id number] 15 Ml Bottle EACH EYE Q2H PRN DRY EYES Sodium Chloride 250 mls @ 15 mls/hr 04/07/24 17:37 IV .[id number] PRN Additional IVPB Infusion Sodium Chloride 250 mls @ 15 mls/hr 04/07/24 17:37 IV .[id number] PRN Saline Flush Lisinopril 2.5 mg 04/08/24 10:00 04/08/24 09:05 Lisinopril 2.5 Mg Tablet PO 2.5 mg DAILY SERGIO Administration Protocol Loratadine 10 mg 04/08/24 10:00 04/08/24 09:06 Loratadine 10 Mg Tablet PO 10 mg DAILY SERGIO Administration Lorazepam 0.5 mg 04/07/24 19:13 04/07/24 19:30 Lorazepam 0.5 Mg Tablet PO 0.5 mg Q4H PRN PRN Administration ANXIETY/RESTLESSNESS/SLEEP Magnesium Citrate 300 ml 04/07/24 21:07 Magnesium Citrate 300 Ml PO DAILY PRN Constipation Memantine 10 mg 04/08/24 10:00 04/08/24 09:05 Memantine Hydrochloride 10 Mg Tablet PO 10 mg DAILY SERGIO Administration Multi-Ingredient Cream 1 applic 04/07/24 22:00 04/08/24 09:06 Petrolatum 33% Tube TOPICAL 1 applic BID SERGIO Administration Protocol [id number] Ethyl Esters 1 gm 04/08/24 10:00 04/08/24 09:05 [place]-3 Acid Ethyl Esters 1 Gm Capsule PO 1 gm DAILY SERGIO Administration Oxycodone HCl 5 mg 04/07/24 21:07 Oxycodone 5 Mg Tablet PO Q4H PRN PRN Pain Score 6-10 or Pre PT/OT Pantoprazole Sodium 20 mg 04/07/24 22:00 04/07/24 20:33 Pantoprazole Sodium 20 Mg Tablet PO 20 mg QHS SERGIO Administration Polyethylene Glycol 17 gm 04/08/24 10:00 04/08/24 09:05 Polyethylene Glycol 3350 17 Gm Packet PO Not Given DAILY SERGIO Senna/Docusate Sodium 2 tablet 04/07/24 22:00 04/08/24 09:05 Senna/Docusate Sodium 1 Tablet PO Not Given BID SERGIO Sodium Chloride 10 - 40 ml 04/07/24 17:37 04/08/24 09:08 0.9% Saline Lock 10 Ml Syringe IV 10 ml UD PRN Administration SALINE FLUSH Tramadol HCl 50 mg 04/07/24 21:07 Tramadol 50 Mg Tablet PO Q6H PRN PRN Pain Score 4-5 or Pre PT/OT Tuberculin PPD 0.1 ml 04/15/24 10:00 Tuberculin,Purif.Prot.Deriv. 50 Tu/Ml Vial ID 04/15/24 10:01 X1 ONE Problem List Neuropathic pain (Acute) Vitamin D deficiency (Acute) Essential (primary) hypertension (Acute) Diabetes mellitus (Acute) Lumbar spinal stenosis (Acute) Alzheimer disease (Acute) Lumbar disc herniation with radiculopathy (Acute) Lumbar compression fracture (Acute) Debility (Acute) Hyponatremia (Acute) Intractable back pain (Acute) Hyperlipidemia (Chronic) Vital Signs Temp Pulse Resp BP Pulse Ox O2 Del Method 97.6 F L 92 16 129/65 H 98 Room Air 04/08/24 08:54 04/08/24 08:54 04/08/24 08:54 04/08/24 08:54 04/08/24 08:54 04/08/24 08:54 Oxygen Delivery Method Room Air Weight: 49.26 kg Body Mass Index (BMI) 19.8 Sodium 138 mmol/L (136-145) 04/08/24 05:21 Potassium 4.2 mmol/L (3.5-5.1) 04/08/24 05:21 Chloride 108 mmol/L (98-107) H 04/08/24 05:21 Carbon Dioxide 25.0 mmol/L (21.0-32.0) 04/08/24 05:21 Anion Gap 5 (5-15) 04/08/24 05:21 BUN 23 mg/dL (7-18) H 04/08/24 05:21 Creatinine 0.70 mg/dL (0.55-1.02) 04/08/24 05:21 Est GFR (MDRD) Af Amer 103 mL/min (>60) 04/08/24 05:21 Est GFR (MDRD) Non-Af 85 mL/min (>60) 04/08/24 05:21 BUN/Creatinine Ratio 33.0 RATIO (10-20) H 04/08/24 05:21 Glucose 176 mg/dL (74-106) H 04/08/24 05:21 Assessment/Plan: 1. Pain - Acetaminophen 100mg PO Q6H PRN for pain scores (1-3), Tramadol 50mg PO Q6H PRN for pain scores (4-5), Oxycodone 5mg PO Q4H PRN for pain scores (6-10), Arthritis pain topically to affected area(s) TID PRN. Please continue to monitor for increasing/decreasing pain scores (last 3 on 04/08/24), increasing/decreasing PRN medication use (Acetaminophen last given 04/08/24 @0921, Tramadol/Oxycodone have not yet been administered, Arthritis pain last applied 04/08/24 @0919 to back), liver function (last LFT WNL on 12/04/22), renal function (last 41ml/min on 04/08/24), increasing/decreasing constipation (last BM liquid on 04/06/24), falls/oversedation (BEERS). 2. Bowel - [id number] 17g PO daily, Senna/docusate 17.2/100mg PO BID, Mag cit 300ml PO daily PRN for constipation. Please continue to monitor for increasing/decreasing constipation/diarrhea (last BM liquid on 04/06/24), and increasing/decreasing PRN medication use (PRN medication not yet administered). 3. DVT prophylaxis - Enoxaparin 40mg SC daily. Please continue to monitor for renal function (last 41ml/min on 04/08/24), bleeding/bruising, Hg (last 13.7g/dL on 04/08/24), Hct (last 41.5% on 04/08/2024). 4. Alzheimer - Memantine 10mg PO daily. Please continue to monitor renal function (last 41ml/min on 04/08/24), and for increasing agitation, confusion, and delirium. 5. Hypertension - Lisinopril 2.5mg PO daily, Amlodipine 10mg PO daily. Please continue to monitor renal function (last 41ml/min on 04/08/24), BP (last 129/65 mmHg on 04/08/24), HR (last 92BMP on 04/08/24), serum potassium (last 4.2mmol/L on 04/08/24), and for edema. 6. Hyperlipidemia - Ezetimibe 10mg PO daily, [place]-3 1g PO daily. Please continue to monitor lipid panel (last TC 219mg/dL, LDL 102mg/dL, HDL 100mg/dL, Tg 85mg/dL on 06/15/23). 7. GERD - Pantoprazole 20mg PO QHS. Please continue to monitor for increasing/decreasing acid reflux symptoms, serum magnesium (not on file), diarrhea (last BM liquid on 04/06/24) Please consider obtaining a serum magnesium level due to risk for hypomagnesemia associated with vermin exterminator PPI use if clinically appropriate. 8. Allergies - Loratadine 10mg PO daily. Please continue to monitor renal function (last 41ml/min on 04/08/24), and for allergy symptoms. 9. Nutrient deficiency (hypocalcemia, Vit D) - Calcium Carbonate D 500mg PO daily, D3 25mcg PO daily. Please continue to monitor serum calcium (last 9.0mg/dL on 04/08/2024), serum vitamin D (last 45.6ng/mL on 11/05/2018). 10. Skin irritation - Calmoseptine applied to both buttocks BID, Eucerin applied to legs and feet twice daily. Please continue to monitor for skin irritation/rash. 11. Dry Eyes - Artificial tears 1gtt OU Q2H PRN. Please continue to monitor for increasing/decreasing eye irritation and increasing/decreasing PRN medication use (PRN medication not yet administered). Assessment/Plan for indications treated with psychotropic medications: 1. Gabapentin 100mg PO TID. Please continue to monitor renal function (last 41ml/min on 04/08/24), and for falls/oversedation (BEERS) Medication not appropriate for GDR due to use for neuropathic pain 2. Anxiety/restlessness/sleep - Lorazepam 0.5mg PO Q4H PRN. Please continue to monitor for falls/oversedation (BEERS) Medication not appropriate for GDR due to PRN use. Medical chart and medication regimen reviewed. The following medication irregularities or issues were identified: 1. GERD - Pantoprazole 20mg PO QHS. Please consider obtaining a serum magnesium level due to risk for hypomagnesemia associated with vermin exterminator PPI use if clinically appropriate. Date Date of Note:: 04/08/24 Documented by User: Dr. Sumeet Elmore MD 04/08/24 13:59 TCU RX Drug Regimen Review Provider Comments Provider responsibility Provider Comments to Recommendations by Pharmacy: Agree
--- NOTE | 2024-04-08 14:02 | CHAPLAIN ---
Type of Pastoral Visit _x__ Initial Visit _x__ Follow-up Visit ___ On-call Visit ___ General Patient Visit ___ Spiritual Assessment ___ Family Conference ___ Bereavement ___ Rapid Response ___ Code Blue ___ Other (describe below) Pastoral Care Referral From _x__ Patient _x__ Family ___ Nurse ___ Physician ___ Personal Injury Law Specialist ___ Furniture Sales Associate ___ Other (describe below) Sacrament/Intervention _x__ Active listening ___ Anointing ___ Jainism ___ Bereavement ___ Communion ___ Christen exploration ___ ___ Life review _x__ Prayer ___ Reconciliation ___ Sacrament of Sick _x__ Supportive presence ___ Wedding ___ Other (describe below) Pastoral Comments first visit and the patient was being attended by therapy staff; second visit and patient was alone in room as she was reviewing her menu; pt is welcoming but continued to focus on her menu selections for tomorrow; pt speaks of her spouse that should be coming in but that he is needed at home to watch the kids; pt states that the children should be in school now; assisted patient in discussions about the menu when her spouse entered room; spouse takes over the menu selections realizing that pt had picked many choices which were unnecessary; pt asks her spouse if the children are okay and are you staying with me tonight?; spouse answers with the reality of the children are at work and No, I'm going home to sleep in our bed there. pt wants to know if the bed in her room is supposed to be where she sleeps then tonight; answered patient that this was true and that she is okay and safe here; pt is pleasant but her comments reveal that she is not aware of the times or places; offer to let the couple visit and that a prayer could be given if patient wanted; pt said, 'yes, you can pray'
--- NOTE | 2024-04-08 15:51 | CASEMGMT ---
Social Work- SW met with pt to complete initial assessment. Introduced self and role. (Pt known to this worker from previous interactions). Verified/updated contacts. Pt goal is to return to home of 48 years with . SW will continue to follow for DC planning. MARKEL Brown
--- NOTE | 2024-04-08 17:50 | NURSING ---
daughter felt pt cheeks alan, temp checked 98.8. pt denies any symptoms. sitting in recliner chair eating supper. will continue to monitor
[2024-04-08] MEDS: Pantoprazole Sodium 20 MG Tablet PO (20:35)
[2024-04-08] MEDS: Senna/Docusate Sodium 1 Tablet 2 TABLET PO (20:35)
[2024-04-09] MEDS: traMADol 50 MG Tablet PO ×2 (05:37→20:45)
[2024-04-09] MEDS: Enoxaparin 40 MG/0.4 ML Syringe SC (05:37)
[2024-04-09] MEDS: Gabapentin 100 MG Capsule PO ×3 (05:37→20:45)
[2024-04-09 07:56] LABS: Magnesium 2.4 mg/dL (1.6-2.6)
[2024-04-09 07:59] LABS: Bedside Glucose 155 mg/dL (74-106)
[2024-04-09] MEDS: Arthritis Pain Compound 60 CLICK TUBE TOPICAL (09:38)
[2024-04-09] MEDS: Acetaminophen 500 MG Tablet 1000 MG PO (09:38)
[2024-04-09] MEDS: Loratadine 10 MG Tablet PO (09:39)
[2024-04-09] MEDS: Omega-3 Acid Ethyl Esters 1 GM Capsule PO (09:39)
[2024-04-09] MEDS: Ezetimibe 10 MG Tablet PO (09:40)
[2024-04-09] MEDS: Lisinopril 2.5 MG Tablet PO (09:40)
[2024-04-09] MEDS: Calcium Carb/Vitamin D 1 TABLET Tablet PO (09:40)
[2024-04-09] MEDS: Senna/Docusate Sodium 1 Tablet 2 TABLET PO ×2 (09:40→20:48)
[2024-04-09] MEDS: Cholecalciferol (VIT D3) 25 MCG TABLET (1,000 UNITS) PO (09:41)
[2024-04-09] MEDS: amLODIPine 10 MG Tablet PO (09:41)
[2024-04-09] MEDS: Memantine Hydrochloride 10 MG Tablet PO (09:42)
[2024-04-09] MEDS: Menthol/Lanolin/Calamine/Znox 113 GM Tube 1 APPLIC TOPICAL ×2 (09:52→20:46)
[2024-04-09] MEDS: Petrolatum 33% Tube 1 APPLIC TOPICAL ×2 (09:52→20:47)
[2024-04-09 13:04] VITALS: BP 123/62; PULSE 79; RESP 16; TEMP 36.7; O2SAT 94
[2024-04-09] MEDS: LORazepam 0.5 MG Tablet PO ×2 (14:57→20:45)
[2024-04-09] MEDS: Pantoprazole Sodium 20 MG Tablet PO (20:47)
[2024-04-10] MEDS: Gabapentin 100 MG Capsule PO ×3 (05:25→20:28)
[2024-04-10] MEDS: Enoxaparin 40 MG/0.4 ML Syringe SC (05:25)
[2024-04-10] MEDS: 0.9% Saline Lock 10 ML Syringe IV (05:25)
[2024-04-10 06:50] LABS: Bedside Glucose 136 mg/dL (74-106)
[2024-04-10] MEDS: Senna/Docusate Sodium 1 Tablet 2 TABLET PO (09:39)
[2024-04-10] MEDS: Memantine Hydrochloride 10 MG Tablet PO (09:40)
[2024-04-10] MEDS: amLODIPine 10 MG Tablet PO (09:40)
[2024-04-10] MEDS: Omega-3 Acid Ethyl Esters 1 GM Capsule PO (09:40)
[2024-04-10] MEDS: Calcium Carb/Vitamin D 1 TABLET Tablet PO (09:40)
[2024-04-10] MEDS: Loratadine 10 MG Tablet PO (09:40)
[2024-04-10] MEDS: Lisinopril 2.5 MG Tablet PO (09:41)
[2024-04-10] MEDS: Cholecalciferol (VIT D3) 25 MCG TABLET (1,000 UNITS) PO (09:41)
[2024-04-10] MEDS: Ezetimibe 10 MG Tablet PO (09:42)
[2024-04-10] MEDS: Arthritis Pain Compound 60 CLICK TUBE TOPICAL ×2 (09:43→20:27)
[2024-04-10] MEDS: Acetaminophen 500 MG Tablet 1000 MG PO ×2 (09:44→20:27)
[2024-04-10] MEDS: Petrolatum 33% Tube 1 APPLIC TOPICAL ×2 (09:51→20:29)
[2024-04-10] MEDS: Menthol/Lanolin/Calamine/Znox 113 GM Tube 1 APPLIC TOPICAL ×2 (09:51→20:29)
[2024-04-10] MEDS: LORazepam 0.5 MG Tablet PO ×2 (13:34→20:28)
[2024-04-10 15:45] VITALS: BP 127/63; PULSE 90; RESP 16; TEMP 37.1; O2SAT 95
[2024-04-10] MEDS: Pantoprazole Sodium 20 MG Tablet PO (20:27)
[2024-04-11] MEDS: Enoxaparin 40 MG/0.4 ML Syringe SC (05:09)
[2024-04-11] MEDS: Gabapentin 100 MG Capsule PO ×3 (05:09→20:06)
[2024-04-11 06:30] LABS: Bedside Glucose 141 mg/dL (74-106)
[2024-04-11 07:52] VITALS: BP 131/68; PULSE 78
[2024-04-11] MEDS: Senna/Docusate Sodium 1 Tablet 2 TABLET PO ×2 (07:54→20:06)
[2024-04-11] MEDS: Polyethylene Glycol 3350 17 GM PACKET PO (07:54)
[2024-04-11] MEDS: Loratadine 10 MG Tablet PO (07:55)
[2024-04-11] MEDS: Cholecalciferol (VIT D3) 25 MCG TABLET (1,000 UNITS) PO (07:55)
[2024-04-11] MEDS: Calcium Carb/Vitamin D 1 TABLET Tablet PO (07:55)
[2024-04-11] MEDS: Memantine Hydrochloride 10 MG Tablet PO (07:55)
[2024-04-11] MEDS: Omega-3 Acid Ethyl Esters 1 GM Capsule PO (07:55)
[2024-04-11] MEDS: Lisinopril 2.5 MG Tablet PO (07:55)
[2024-04-11] MEDS: Ezetimibe 10 MG Tablet PO (07:56)
[2024-04-11] MEDS: amLODIPine 10 MG Tablet PO (07:56)
[2024-04-11] MEDS: Menthol/Lanolin/Calamine/Znox 113 GM Tube 1 APPLIC TOPICAL ×2 (07:58→20:07)
[2024-04-11] MEDS: 0.9% Saline Lock 10 ML Syringe IV (07:58)
[2024-04-11] MEDS: Petrolatum 33% Tube 1 APPLIC TOPICAL ×2 (07:58→20:06)
[2024-04-11] MEDS: Acetaminophen 500 MG Tablet 1000 MG PO (11:53)
[2024-04-11 15:05] VITALS: BP 112/55; PULSE 80; RESP 16; TEMP 36.9; O2SAT 93
[2024-04-11] MEDS: oxyCODONE 5 MG Tablet PO ×2 (15:56→21:44)
[2024-04-11] MEDS: LORazepam 0.5 MG Tablet PO ×2 (16:00→20:06)
[2024-04-11] MEDS: Pantoprazole Sodium 20 MG Tablet PO (20:06)
[2024-04-11] MEDS: LORazepam 1 MG Tablet PO (21:44)
[2024-04-12] MEDS: Enoxaparin 40 MG/0.4 ML Syringe SC (05:15)
[2024-04-12] MEDS: Gabapentin 100 MG Capsule PO ×3 (05:19→23:02)
[2024-04-12] MEDS: traMADol 50 MG Tablet PO ×2 (06:11→16:44)
[2024-04-12 06:47] LABS: Bedside Glucose 133 mg/dL (74-106)
[2024-04-12] MEDS: Omega-3 Acid Ethyl Esters 1 GM Capsule PO (08:36)
[2024-04-12] MEDS: Ezetimibe 10 MG Tablet PO (08:36)
[2024-04-12] MEDS: Loratadine 10 MG Tablet PO (08:36)
[2024-04-12] MEDS: amLODIPine 10 MG Tablet PO (08:36)
[2024-04-12] MEDS: Calcium Carb/Vitamin D 1 TABLET Tablet PO (08:36)
[2024-04-12] MEDS: Memantine Hydrochloride 10 MG Tablet PO (08:36)
[2024-04-12] MEDS: Cholecalciferol (VIT D3) 25 MCG TABLET (1,000 UNITS) PO (08:37)
[2024-04-12] MEDS: Senna/Docusate Sodium 1 Tablet 2 TABLET PO ×2 (08:37→23:02)
[2024-04-12] MEDS: Lisinopril 2.5 MG Tablet PO (08:37)
[2024-04-12] MEDS: Arthritis Pain Compound 60 CLICK TUBE TOPICAL (08:37)
[2024-04-12] MEDS: Polyethylene Glycol 3350 17 GM PACKET PO (08:38)
[2024-04-12] MEDS: Menthol/Lanolin/Calamine/Znox 113 GM Tube 1 APPLIC TOPICAL ×2 (08:38→23:02)
[2024-04-12] MEDS: Petrolatum 33% Tube 1 APPLIC TOPICAL ×2 (08:39→23:03)
[2024-04-12 08:44] VITALS: BP 126/65; PULSE 91; RESP 16; TEMP 36.3; O2SAT 95
[2024-04-12] MEDS: 0.9% Saline Lock 10 ML Syringe IV (13:48)
[2024-04-12 15:21] VITALS: BMI 19.7
[2024-04-12] MEDS: LORazepam 1 MG Tablet PO (16:43)
[2024-04-12] MEDS: Pantoprazole Sodium 20 MG Tablet PO (23:02)
[2024-04-13] MEDS: Enoxaparin 40 MG/0.4 ML Syringe SC (05:12)
[2024-04-13] MEDS: Gabapentin 100 MG Capsule PO ×3 (05:12→21:43)
[2024-04-13] MEDS: traMADol 50 MG Tablet PO (05:13)
[2024-04-13 06:32] LABS: Bedside Glucose 137 mg/dL (74-106)
[2024-04-13] MEDS: oxyCODONE 5 MG Tablet PO ×4 (07:23→21:42)
[2024-04-13] MEDS: Menthol/Lanolin/Calamine/Znox 113 GM Tube 1 APPLIC TOPICAL ×2 (08:06→21:44)
[2024-04-13] MEDS: Petrolatum 33% Tube 1 APPLIC TOPICAL ×2 (08:06→21:45)
[2024-04-13] MEDS: Memantine Hydrochloride 10 MG Tablet PO (08:06)
[2024-04-13] MEDS: Polyethylene Glycol 3350 17 GM PACKET PO (08:06)
[2024-04-13] MEDS: Omega-3 Acid Ethyl Esters 1 GM Capsule PO (08:06)
[2024-04-13] MEDS: Loratadine 10 MG Tablet PO (08:06)
[2024-04-13] MEDS: amLODIPine 10 MG Tablet PO (08:07)
[2024-04-13] MEDS: Calcium Carb/Vitamin D 1 TABLET Tablet PO (08:07)
[2024-04-13] MEDS: Senna/Docusate Sodium 1 Tablet 2 TABLET PO ×2 (08:07→21:44)
[2024-04-13] MEDS: Cholecalciferol (VIT D3) 25 MCG TABLET (1,000 UNITS) PO (08:07)
[2024-04-13] MEDS: Lisinopril 2.5 MG Tablet PO (08:07)
[2024-04-13] MEDS: Ezetimibe 10 MG Tablet PO (08:07)
--- NOTE | 2024-04-13 09:35 | CASEMGMT ---
Social Work BIMS (04/04) and PHQ-2 () completed for MDS assessment. PEACE Vargas PAYROLL DIRECTOR
--- NOTE | 2024-04-13 10:14 | CASEMGMT ---
Social Work IDT met with patient, and two daughters for care plan meeting. Discussed patient's progress in PT/OT/ST/SN. Educated to [facility] insurance with [employer]D 04/20 and continued stay is not guaranteed with each review. Provided pt/family written communication on insurance process and copay coverage during stay. ST inquired about family's opinion in change in cognition and behaviors. All in agreement pt has declined and specifically sundowns. Family questioning if medication changes could be contributing, in addition to multiple recent changes in environment. RN offered to speak with Dr. Family agreed and will be present this evening for Dr. RN left written communication for . TRICIA inquired about goals for DC. Educated to pt having wanderguard placed. IDT recommending continued 13/04 care and pt cannot be left alone d/t safety. Family in agreement and expressed getting additional help at DC. Two dtrs and granddaughter can assist. SW educated and provided resources for nonskilled HAULAGE ENGINE OPERATOR list and [place]. Educated to bed/chair alarms and door alarms at home. Provided medical alert resources that have fall detection, like a watch, as pt would not be able to problem solve to press a button on her own. agreed. SW will continue to follow for DC planning. Elle Johnson, LAUNDRY TECHNICIAN BOOKKEEPING CLERK
[2024-04-13 12:02] VITALS: BP 125/70; PULSE 86; RESP 18; TEMP 36.8; O2SAT 95
[2024-04-13] MEDS: Magnesium Citrate 300 ML PO (15:06)
[2024-04-13] MEDS: LORazepam 1 MG Tablet PO ×2 (15:06→21:43)
[2024-04-13] MEDS: Acetaminophen 500 MG Tablet 1000 MG PO (15:46)
[2024-04-13] MEDS: Pantoprazole Sodium 20 MG Tablet PO (21:44)
[2024-04-14 03:07] LABS: Bedside Glucose 153 mg/dL (74-106)
[2024-04-14] MEDS: oxyCODONE 5 MG Tablet PO ×3 (04:32→22:19)
[2024-04-14] MEDS: LORazepam 1 MG Tablet PO ×2 (04:33→18:33)
[2024-04-14] MEDS: Enoxaparin 40 MG/0.4 ML Syringe SC (04:35)
[2024-04-14 06:35] LABS: Bedside Glucose 160 mg/dL (74-106)
[2024-04-14] MEDS: Petrolatum 33% Tube 1 APPLIC TOPICAL ×2 (08:45→22:28)
[2024-04-14] MEDS: Loratadine 10 MG Tablet PO (08:45)
[2024-04-14] MEDS: Menthol/Lanolin/Calamine/Znox 113 GM Tube 1 APPLIC TOPICAL ×2 (08:45→22:28)
[2024-04-14] MEDS: Omega-3 Acid Ethyl Esters 1 GM Capsule PO (08:46)
[2024-04-14] MEDS: Polyethylene Glycol 3350 17 GM PACKET PO (08:46)
[2024-04-14] MEDS: amLODIPine 10 MG Tablet PO (08:46)
[2024-04-14] MEDS: Memantine Hydrochloride 10 MG Tablet PO (08:46)
[2024-04-14] MEDS: Calcium Carb/Vitamin D 1 TABLET Tablet PO (08:47)
[2024-04-14] MEDS: Senna/Docusate Sodium 1 Tablet 2 TABLET PO ×2 (08:47→22:19)
[2024-04-14] MEDS: Ezetimibe 10 MG Tablet PO (08:48)
[2024-04-14] MEDS: Lisinopril 2.5 MG Tablet PO (08:48)
[2024-04-14] MEDS: Cholecalciferol (VIT D3) 25 MCG TABLET (1,000 UNITS) PO (08:48)
[2024-04-14] MEDS: traMADol 50 MG Tablet PO (08:50)
[2024-04-14] MEDS: Gabapentin 100 MG Capsule PO ×2 (08:53→22:19)
--- NOTE | 2024-04-14 14:39 | NURSING ---
Offered covid vaccine, VIS provided. Patient refuses at this time.
[2024-04-14 16:00] VITALS: BP 114/61; PULSE 79; RESP 14; TEMP 36.7; O2SAT 95
[2024-04-14] MEDS: Pantoprazole Sodium 20 MG Tablet PO (22:19)
[2024-04-15 06:09] LABS: Absolute Lymphocyte Count 1.19 X10^3/uL (0.83-4.51); Basophil# 0.03 X10^3/uL; Basophil% 0.2 % (0-1); Eosinophil# 0.07 X10^3/uL; Eosinophils% 0.6 % (0-5); Hematocrit 38.3 % (37-47); Hemoglobin 12.9 g/dL (12.0-15.0); Lymphocyte # 1.19 X10^3/ul (0.83-4.51); Lymphocyte % 9.7 % (19-41); Mean Corp Hgb Conc 33.7 g/dL (32-36); Mean Corpuscular Hgb 31.5 pg (27.0-32.0); Mean Corpuscular Volume 93.4 fL (81-99); Mean Platelet Vol. 10.7 fl (6.2-12.0); Monocyte% 7.4 % (0-10); NRBC Flagged by Analyzer 0 % (0-5); Neutrophil # 9.99 X10^3/uL (2.7-7.7); Neutrophil % 81.7 % (47-70); Platelet Count 322 K/mm3 (150-450); RBC Distribution Width CV 13.2 % (11.6-14.6); RBC Distribution Width SD 44.6 fl (35.1-43.9); White Blood Count 12.2 K/mm3 (4.4-11.0)
[2024-04-15] MEDS: Enoxaparin 40 MG/0.4 ML Syringe SC (06:22)
[2024-04-15 06:33] LABS: Anion Gap 4 (5-15); BUN 19 mg/dL (7-18); BUN/Creat Ratio 24.7 RATIO (10-20); Calcium,Total 8.7 mg/dL (8.5-10.1); Chloride 103 mmol/L (98-107); Creatinine, Serum 0.77 mg/dL (0.55-1.02); EST Glomerular Filtration Rate 76 mL/min (>60); Est Glom Filt Rate - Afr Amer 92 mL/min (>60); Estimated Creatinine Clearance 40.48 ml/min; Glucose 158 mg/dL (74-106); Potassium 4.5 mmol/L (3.5-5.1); Sodium Level 135 mmol/L (136-145)
[2024-04-15 06:38] LABS: Bedside Glucose 153 mg/dL (74-106)
[2024-04-15] MEDS: Polyethylene Glycol 3350 17 GM PACKET PO (08:30)
[2024-04-15] MEDS: Petrolatum 33% Tube 1 APPLIC TOPICAL ×2 (08:32→20:41)
[2024-04-15] MEDS: Ezetimibe 10 MG Tablet PO (08:33)
[2024-04-15] MEDS: Menthol/Lanolin/Calamine/Znox 113 GM Tube 1 APPLIC TOPICAL ×2 (08:33→20:42)
[2024-04-15] MEDS: amLODIPine 10 MG Tablet PO (08:33)
[2024-04-15] MEDS: Lisinopril 2.5 MG Tablet PO (08:33)
[2024-04-15] MEDS: Calcium Carb/Vitamin D 1 TABLET Tablet PO (08:33)
[2024-04-15] MEDS: Loratadine 10 MG Tablet PO (08:33)
[2024-04-15] MEDS: Omega-3 Acid Ethyl Esters 1 GM Capsule PO (08:33)
[2024-04-15] MEDS: Cholecalciferol (VIT D3) 25 MCG TABLET (1,000 UNITS) PO (08:33)
[2024-04-15] MEDS: Memantine Hydrochloride 10 MG Tablet PO (08:33)
[2024-04-15] MEDS: Senna/Docusate Sodium 1 Tablet 2 TABLET PO ×2 (08:33→20:41)
[2024-04-15] MEDS: Gabapentin 100 MG Capsule PO ×2 (08:34→20:41)
--- NOTE | 2024-04-15 08:51 | NURSING ---
Senior Billing Consultant Note; MDS for 04/14/2024 Complete
[2024-04-15] MEDS: Tuberculin,Purif.prot.deriv. 50 TU/ML Vial 0.1 ML ID (10:07)
[2024-04-15] MEDS: oxyCODONE 5 MG Tablet PO (10:07)
[2024-04-15 11:13] VITALS: BP 129/60; PULSE 98; RESP 16; TEMP 36.6; O2SAT 95
[2024-04-15 15:33] LABS: Mucous, Urine 0 SEEN /hpf (<or=2+); Red Blood Cells-Urine 0 SEEN /hpf (0-5); Squamous Epithelial Cells - UA 0 SEEN /hpf (5-10)
[2024-04-15] MEDS: LORazepam 1 MG Tablet PO ×2 (15:34→23:40)
[2024-04-15 15:49] LABS: Color, Urine Yellow (Yellow); Glucose, Dipstick Normal (Normal); Ketone-Dipstick Negative (Negative); Leukocyte Esterase-Dipstick 500 /ul (Negative); Nitrite-Dipstick Positive (Negative); Occult Blood-Urine 10 /ul (Negative); Protein-Dipstick 15 mg/dl (Negative); Specific Gravity, Urine 1.015 (1.002-1.030); Urine Bilirubin Dipstick Negative (Negative); Urine Clarity Sl. Cloudy (Clear); Urine Urobilinogen Normal (Normal); Urine pH 6.5 (5.0 - 8.0)
[2024-04-15] MEDS: Tolterodine Tartrate 2 MG CAP.SA PO (15:59)
[2024-04-15 16:27] LABS: Bacteria 3+ /hpf (None Seen); White Blood Cells 5-10 SEEN /hpf (0-5)
[2024-04-15] MEDS: oxyCODONE 5 MG Tablet 10 MG PO (19:00)
[2024-04-15] MEDS: Pantoprazole Sodium 20 MG Tablet PO (20:41)
[2024-04-16] MEDS: Enoxaparin 40 MG/0.4 ML Syringe SC (05:37)
[2024-04-16 06:07] VITALS: PULSE 84; RESP 16; O2SAT 99
[2024-04-16 06:24] LABS: Bedside Glucose 148 mg/dL (74-106)
[2024-04-16] MEDS: oxyCODONE 5 MG Tablet 10 MG PO ×2 (07:16→13:39)
[2024-04-16] MEDS: predniSONE 10 MG Tablet PO (07:55)
[2024-04-16] MEDS: amLODIPine 10 MG Tablet PO (07:56)
[2024-04-16] MEDS: Loratadine 10 MG Tablet PO (07:56)
[2024-04-16] MEDS: Polyethylene Glycol 3350 17 GM PACKET PO (07:56)
[2024-04-16] MEDS: Tolterodine Tartrate 2 MG CAP.SA PO (07:56)
[2024-04-16] MEDS: Omega-3 Acid Ethyl Esters 1 GM Capsule PO (07:56)
[2024-04-16] MEDS: Calcium Carb/Vitamin D 1 TABLET Tablet PO (07:56)
[2024-04-16] MEDS: Gabapentin 100 MG Capsule PO ×2 (07:56→20:56)
[2024-04-16] MEDS: Memantine Hydrochloride 10 MG Tablet PO (07:56)
[2024-04-16] MEDS: Cholecalciferol (VIT D3) 25 MCG TABLET (1,000 UNITS) PO (07:57)
[2024-04-16] MEDS: Ezetimibe 10 MG Tablet PO (07:57)
[2024-04-16] MEDS: Petrolatum 33% Tube 1 APPLIC TOPICAL ×2 (07:57→20:58)
[2024-04-16] MEDS: Lisinopril 2.5 MG Tablet PO (07:57)
[2024-04-16] MEDS: Senna/Docusate Sodium 1 Tablet 2 TABLET PO ×2 (07:57→20:57)
[2024-04-16] MEDS: Menthol/Lanolin/Calamine/Znox 113 GM Tube 1 APPLIC TOPICAL ×2 (07:58→20:58)
[2024-04-16 10:33] VITALS: BP 113/62; PULSE 87; RESP 16; TEMP 36.9; O2SAT 95
[2024-04-16] MEDS: Ciprofloxacin 250 MG Tablet PO ×2 (14:59→20:57)
[2024-04-16] MEDS: LORazepam 1 MG Tablet PO (14:59)
[2024-04-16] MEDS: traMADol 50 MG Tablet PO (15:00)
[2024-04-16] MEDS: Pantoprazole Sodium 20 MG Tablet PO (20:57)
[2024-04-17 03:58] VITALS: PULSE 85; RESP 18; O2SAT 97
[2024-04-17] MEDS: Enoxaparin 40 MG/0.4 ML Syringe SC (05:00)
[2024-04-17] MEDS: LORazepam 1 MG Tablet PO ×3 (06:12→20:19)
[2024-04-17 06:26] LABS: Bedside Glucose 127 mg/dL (74-106)
[2024-04-17] MEDS: oxyCODONE 5 MG Tablet 10 MG PO ×2 (07:23→19:37)
[2024-04-17 08:42] VITALS: BP 121/71; PULSE 61; RESP 16; TEMP 36.7; O2SAT 100
[2024-04-17] MEDS: Loratadine 10 MG Tablet PO (08:51)
[2024-04-17] MEDS: predniSONE 10 MG Tablet PO (08:51)
[2024-04-17] MEDS: Ciprofloxacin 250 MG Tablet PO ×2 (08:51→21:01)
[2024-04-17] MEDS: Tolterodine Tartrate 2 MG CAP.SA PO (08:51)
[2024-04-17] MEDS: Ezetimibe 10 MG Tablet PO (08:52)
[2024-04-17] MEDS: Omega-3 Acid Ethyl Esters 1 GM Capsule PO (08:52)
[2024-04-17] MEDS: Memantine Hydrochloride 10 MG Tablet PO (08:52)
[2024-04-17] MEDS: amLODIPine 10 MG Tablet PO (08:52)
[2024-04-17] MEDS: Calcium Carb/Vitamin D 1 TABLET Tablet PO (08:52)
[2024-04-17] MEDS: Cholecalciferol (VIT D3) 25 MCG TABLET (1,000 UNITS) PO (08:52)
[2024-04-17] MEDS: Lisinopril 2.5 MG Tablet PO (08:52)
[2024-04-17] MEDS: Polyethylene Glycol 3350 17 GM PACKET PO (08:52)
[2024-04-17] MEDS: Senna/Docusate Sodium 1 Tablet 2 TABLET PO ×2 (08:53→21:02)
[2024-04-17] MEDS: Menthol/Lanolin/Calamine/Znox 113 GM Tube 1 APPLIC TOPICAL ×2 (08:55→21:02)
[2024-04-17] MEDS: Petrolatum 33% Tube 1 APPLIC TOPICAL ×2 (08:55→21:01)
[2024-04-17] MEDS: Gabapentin 100 MG Capsule PO ×2 (08:58→21:01)
[2024-04-17] MEDS: traMADol 50 MG Tablet PO (12:17)
[2024-04-17] MEDS: Pantoprazole Sodium 20 MG Tablet PO (21:02)
[2024-04-18] MEDS: Enoxaparin 40 MG/0.4 ML Syringe SC (06:20)
[2024-04-18 06:30] VITALS: PULSE 81; RESP 16; O2SAT 95
[2024-04-18 06:37] LABS: Bedside Glucose 134 mg/dL (74-106)
[2024-04-18] MEDS: Tolterodine Tartrate 2 MG CAP.SA PO (07:41)
[2024-04-18] MEDS: Cholecalciferol (VIT D3) 25 MCG TABLET (1,000 UNITS) PO (07:41)
[2024-04-18] MEDS: Senna/Docusate Sodium 1 Tablet 2 TABLET PO ×2 (07:41→22:42)
[2024-04-18] MEDS: Ezetimibe 10 MG Tablet PO (07:41)
[2024-04-18] MEDS: Omega-3 Acid Ethyl Esters 1 GM Capsule PO (07:41)
[2024-04-18] MEDS: Memantine Hydrochloride 10 MG Tablet PO (07:41)
[2024-04-18] MEDS: amLODIPine 10 MG Tablet PO (07:41)
[2024-04-18] MEDS: Loratadine 10 MG Tablet PO (07:41)
[2024-04-18] MEDS: Calcium Carb/Vitamin D 1 TABLET Tablet PO (07:41)
[2024-04-18] MEDS: Lisinopril 2.5 MG Tablet PO (07:41)
[2024-04-18] MEDS: Ciprofloxacin 250 MG Tablet PO ×2 (07:41→22:42)
[2024-04-18] MEDS: predniSONE 10 MG Tablet PO (07:41)
[2024-04-18] MEDS: Gabapentin 100 MG Capsule PO ×2 (07:41→22:42)
[2024-04-18] MEDS: Polyethylene Glycol 3350 17 GM PACKET PO (07:42)
[2024-04-18] MEDS: Menthol/Lanolin/Calamine/Znox 113 GM Tube 1 APPLIC TOPICAL ×2 (07:42→22:42)
[2024-04-18] MEDS: LORazepam 1 MG Tablet PO ×3 (07:42→22:41)
[2024-04-18] MEDS: Petrolatum 33% Tube 1 APPLIC TOPICAL ×2 (07:42→22:42)
[2024-04-18 09:14] VITALS: BP 138/70; PULSE 87; RESP 16; TEMP 37; O2SAT 97
[2024-04-18 22:39] VITALS: BP 126/64; PULSE 86
[2024-04-18] MEDS: Pantoprazole Sodium 20 MG Tablet PO (22:42)
--- NOTE | 2024-04-19 00:35 | NURSING ---
Resident calls about picking up supper trays. Resident acknowledged she was at the hospital but had difficulty verbalizing time. Reoriented to time. Resident thinks she did not eat supper. Informed her she was given a supper tray. Offered a snack and resident declines. Was slightly irritable during conversation. Bed alarm and room camera in use. Call light w/ in reach. Will continue to monitor.
[2024-04-19] MEDS: LORazepam 1 MG Tablet PO ×2 (03:57→15:35)
[2024-04-19] MEDS: Acetaminophen 500 MG Tablet 1000 MG PO (03:58)
--- NOTE | 2024-04-19 04:07 | NURSING ---
Resident remains awake after attempting to get oob several times. Thinks she will be going home and requests that her brother, Rashad, or spouse will transport. Has been asking for her shoes and the keys to her car. Several staff have attempted 1:1 and reorientation without success. Given food, fluids, and toileted. Warm blanket applied. Denies any c/o pain when asked the verbalizes she has pain to her back and hip. Medicated w/ Tylenol and Ativan. Remains at nurses station w/ staff at this time. Will continue to monitor.
[2024-04-19] MEDS: Enoxaparin 40 MG/0.4 ML Syringe SC (05:10)
--- NOTE | 2024-04-19 05:27 | NURSING ---
pt awake all night and made multiple attempts to get out of bed unassisted. Pts personal alarm would sound and nurse and SUPERVISOR CUTTING DEPARTMENT would run to assist. Pt would continue to ask same questions and did not understand nurses answer. Pt did not believe what time it was in the night. for patients safety, patient was brought to nurse's station in her chair to sit with staff. pt redirected multiple times after patient continued to get out of chair unassisted. PT confused about where she was at, this nurse tried redirecting patient back to reality. Patient then was getting sleepy, this nurse and RN assisted patient back to bed. Call light within reach and personal alarm on.
--- NOTE | 2024-04-19 05:31 | NURSING ---
Resident remains restless. Toileted and did not void. Hat was in toilet to monitor for PVR. Hat likely caused increased confusion as resident made several small adjustments to reposition self. Bladder scan completed for 226 ml. Eyes started to close while in bed. Bed alarm activated. Room camera in use. Call light w/ in reach. Will continue to monitor.
[2024-04-19 07:57] LABS: Bedside Glucose 105 mg/dL (74-106)
--- NOTE | 2024-04-19 10:03 | MDS.RN ---
Information for the MDS was obtained from review of the clinical record, interview of resident, staff, and direct observation of resident?s care.
[2024-04-19 10:24] VITALS: BMI 19.6
[2024-04-19 10:37] VITALS: BP 141/79; PULSE 99; RESP 15; TEMP 36.7; O2SAT 96
[2024-04-19] MEDS: Cholecalciferol (VIT D3) 25 MCG TABLET (1,000 UNITS) PO (10:38)
[2024-04-19] MEDS: Calcium Carb/Vitamin D 1 TABLET Tablet PO (10:38)
[2024-04-19] MEDS: Tolterodine Tartrate 2 MG CAP.SA PO (10:38)
[2024-04-19] MEDS: Memantine Hydrochloride 10 MG Tablet PO (10:38)
[2024-04-19] MEDS: Omega-3 Acid Ethyl Esters 1 GM Capsule PO (10:38)
[2024-04-19] MEDS: amLODIPine 10 MG Tablet PO (10:38)
[2024-04-19] MEDS: predniSONE 10 MG Tablet PO (10:38)
[2024-04-19] MEDS: Lisinopril 2.5 MG Tablet PO (10:38)
[2024-04-19] MEDS: Loratadine 10 MG Tablet PO (10:38)
[2024-04-19] MEDS: Senna/Docusate Sodium 1 Tablet 2 TABLET PO ×2 (10:38→20:37)
[2024-04-19] MEDS: Ciprofloxacin 250 MG Tablet PO ×2 (10:38→20:36)
[2024-04-19] MEDS: Ezetimibe 10 MG Tablet PO (10:38)
[2024-04-19] MEDS: Menthol/Lanolin/Calamine/Znox 113 GM Tube 1 APPLIC TOPICAL ×2 (10:39→20:37)
[2024-04-19] MEDS: Petrolatum 33% Tube 1 APPLIC TOPICAL ×2 (10:39→20:38)
[2024-04-19] MEDS: Gabapentin 100 MG Capsule PO ×2 (10:45→20:42)
--- NOTE | 2024-04-19 15:30 | NURSING ---
pt wanted to speak with on phone, dialed phone number, pt speaking to him i need to help you with the babies, have you been feeding them. If I find someone else, I will get a ride home to help you. pt resting in recliner chair in lobby. will continue to monitor. alarm in place on chair and bed.
[2024-04-19] MEDS: oxyCODONE 5 MG Tablet 10 MG PO (16:01)
--- NOTE | 2024-04-19 16:44 | CASEMGMT ---
Social Work SW spoke with pt's at bedside. Inquired about DC plans. agreed he will need help with caring for pt at home, but the plan is for pt to DC home. SW acknowledged pt's increased confused with UTI, but encouraged to talk with the family and begin contacting nonskilled [facility] agencies. Educated to about another week of therapy prior to setting DC date. agreed and will f/u with this worker on findings of PHYSICAL THERAPY ATTENDANT. SW will continue to follow. Elle Johnson MSW HELICOPTER CREW CHIEF
[2024-04-19] MEDS: Pantoprazole Sodium 20 MG Tablet PO (20:35)
[2024-04-20] MEDS: Enoxaparin 40 MG/0.4 ML Syringe SC (05:33)
[2024-04-20 06:13] LABS: Bedside Glucose 130 mg/dL (74-106)
[2024-04-20 09:18] VITALS: BP 115/66; PULSE 76; RESP 16; TEMP 36.3; O2SAT 96
[2024-04-20] MEDS: Omega-3 Acid Ethyl Esters 1 GM Capsule PO (09:22)
[2024-04-20] MEDS: predniSONE 10 MG Tablet PO (09:22)
[2024-04-20] MEDS: Ciprofloxacin 250 MG Tablet PO ×2 (09:22→20:59)
[2024-04-20] MEDS: Polyethylene Glycol 3350 17 GM PACKET PO (09:22)
[2024-04-20] MEDS: Cholecalciferol (VIT D3) 25 MCG TABLET (1,000 UNITS) PO (09:23)
[2024-04-20] MEDS: amLODIPine 10 MG Tablet PO (09:23)
[2024-04-20] MEDS: Lisinopril 2.5 MG Tablet PO (09:23)
[2024-04-20] MEDS: Memantine Hydrochloride 10 MG Tablet PO (09:23)
[2024-04-20] MEDS: Loratadine 10 MG Tablet PO (09:23)
[2024-04-20] MEDS: Senna/Docusate Sodium 1 Tablet 2 TABLET PO ×2 (09:23→20:59)
[2024-04-20] MEDS: Ezetimibe 10 MG Tablet PO (09:23)
[2024-04-20] MEDS: Tolterodine Tartrate 2 MG CAP.SA PO (09:23)
[2024-04-20] MEDS: Calcium Carb/Vitamin D 1 TABLET Tablet PO (09:23)
[2024-04-20] MEDS: Petrolatum 33% Tube 1 APPLIC TOPICAL ×2 (09:27→20:57)
[2024-04-20] MEDS: Gabapentin 100 MG Capsule PO ×2 (09:27→20:57)
[2024-04-20] MEDS: Menthol/Lanolin/Calamine/Znox 113 GM Tube 1 APPLIC TOPICAL ×2 (09:27→20:58)
--- NOTE | 2024-04-20 10:44 | NURSING ---
Heath, updated on positive covid case on unit. pt has dementia, does not comprehend
[2024-04-20] MEDS: Pantoprazole Sodium 20 MG Tablet PO (20:59)
[2024-04-21] MEDS: LORazepam 1 MG Tablet PO ×2 (02:17→14:06)
[2024-04-21 02:28] VITALS: PULSE 74; RESP 14; O2SAT 94
[2024-04-21] MEDS: Enoxaparin 40 MG/0.4 ML Syringe SC (05:32)
[2024-04-21 06:41] LABS: Bedside Glucose 122 mg/dL (74-106)
--- NOTE | 2024-04-21 08:00 | NURSING ---
Patient tested positive for Covid 19 this AM. Placed in droplet precautions at this time. Dr. Elmore made aware with NNO at this time. Patient denies symptoms at this time. Heath made aware and that they will need to wear PPE to visit and that patient will need to stay in her room. tolerated well and denied questions. Reports he will plan to Covid test himself as well.
[2024-04-21] MEDS: Gabapentin 100 MG Capsule PO ×2 (10:06→21:02)
[2024-04-21] MEDS: oxyCODONE 5 MG Tablet 10 MG PO ×2 (10:06→17:42)
[2024-04-21 10:22] VITALS: BP 113/54; PULSE 90; RESP 18; TEMP 36.3; O2SAT 95
[2024-04-21] MEDS: Calcium Carb/Vitamin D 1 TABLET Tablet PO (10:23)
[2024-04-21] MEDS: amLODIPine 10 MG Tablet PO (10:23)
[2024-04-21] MEDS: Cholecalciferol (VIT D3) 25 MCG TABLET (1,000 UNITS) PO (10:23)
[2024-04-21] MEDS: Memantine Hydrochloride 10 MG Tablet PO (10:23)
[2024-04-21] MEDS: Senna/Docusate Sodium 1 Tablet 2 TABLET PO ×2 (10:23→21:02)
[2024-04-21] MEDS: Ciprofloxacin 250 MG Tablet PO ×2 (10:23→21:02)
[2024-04-21] MEDS: Omega-3 Acid Ethyl Esters 1 GM Capsule PO (10:23)
[2024-04-21] MEDS: Loratadine 10 MG Tablet PO (10:23)
[2024-04-21] MEDS: Ezetimibe 10 MG Tablet PO (10:23)
[2024-04-21] MEDS: Tolterodine Tartrate 2 MG CAP.SA PO (10:24)
[2024-04-21] MEDS: Lisinopril 2.5 MG Tablet PO (10:24)
[2024-04-21] MEDS: predniSONE 10 MG Tablet PO (10:24)
[2024-04-21] MEDS: Polyethylene Glycol 3350 17 GM PACKET PO (10:24)
[2024-04-21] MEDS: Menthol/Lanolin/Calamine/Znox 113 GM Tube 1 APPLIC TOPICAL ×2 (10:33→21:06)
[2024-04-21] MEDS: Petrolatum 33% Tube 1 APPLIC TOPICAL ×2 (10:34→21:05)
[2024-04-21] MEDS: traMADol 50 MG Tablet PO (14:06)
--- NOTE | 2024-04-21 16:16 | NURSING ---
Addendum entered by Kirsty Cruz 04/21/24 19:24: Pt asymptomatic today, afebrile. Continues with restlessness and self-transfers. PRN pain meds and Ativan administered throughout day, redirection, food/fluids, changing position, provided-effective for very short periods of time. Original Note: ALL CARE GIVEN IN ROOM DUE TO PT IN PRECAUTIONS FOR COVID.
[2024-04-21] MEDS: Pantoprazole Sodium 20 MG Tablet PO (21:02)
[2024-04-22] MEDS: Enoxaparin 40 MG/0.4 ML Syringe SC (05:13)
[2024-04-22 05:22] VITALS: PULSE 72; RESP 16; TEMP 37.2; O2SAT 93
[2024-04-22 05:53] VITALS: PULSE 76; RESP 16; O2SAT 95
[2024-04-22 06:28] LABS: Absolute Lymphocyte Count 1.24 X10^3/uL (0.83-4.51); Absolute Neutrophil Count 5.1 X10^3/uL (2.0-7.7); Basophil# 0.03 X10^3/uL; Basophil% 0.4 % (0-1); Eosinophil# 0.06 X10^3/uL; Eosinophils% 0.8 % (0-5); Hematocrit 42.8 % (37-47); Hemoglobin 14.2 g/dL (12.0-15.0); Lymphocyte # 1.24 X10^3/ul (0.83-4.51); Lymphocyte % 17.5 % (19-41); Mean Corp Hgb Conc 33.2 g/dL (32-36); Mean Corpuscular Volume 93.4 fL (81-99); Mean Platelet Vol. 10.4 fl (6.2-12.0); Monocyte# 0.55 X10^3/uL; Monocyte% 7.7 % (0-10); NRBC Flagged by Analyzer 0 % (0-5); Neutrophil % 71.9 % (47-70); Platelet Count 292 K/mm3 (150-450); RBC Distribution Width CV 13.1 % (11.6-14.6); RBC Distribution Width SD 44.8 fl (35.1-43.9); Red Blood Count 4.58 M/mm3 (4.2-5.4); White Blood Count 7.1 K/mm3 (4.4-11.0)
[2024-04-22 06:45] LABS: Bedside Glucose 164 mg/dL (74-106)
[2024-04-22 07:07] LABS: Anion Gap 7 (5-15); BUN 22 mg/dL (7-18); BUN/Creat Ratio 21.2 RATIO (10-20); Calcium,Total 9.1 mg/dL (8.5-10.1); Chloride 102 mmol/L (98-107); Creatinine, Serum 1.04 mg/dL (0.55-1.02); EST Glomerular Filtration Rate 54 mL/min (>60); Est Glom Filt Rate - Afr Amer 65 mL/min (>60); Estimated Creatinine Clearance 30.94 ml/min; Glucose 174 mg/dL (74-106); Potassium 3.6 mmol/L (3.5-5.1); Sodium Level 135 mmol/L (136-145)
[2024-04-22] MEDS: traMADol 50 MG Tablet PO (08:14)
[2024-04-22] MEDS: LORazepam 1 MG Tablet PO ×3 (08:14→18:31)
--- NOTE | 2024-04-22 08:18 | NURSING ---
PT NONCOMPLIANT WITH ALARM,KEEPS GETTING UP AND WALKING AROUND ROOM STATING SHE WAS GOING HOME. DID 1 ON 1 WITH PT AND GIVE HER SOME ACTIVITY PAPERS TO DO. ASKED PT IF SHE WAS PAINFUL PT STATED YES IN HER BACK. PRN TRAMADOL GIVEN. ALL CARE GIVEN IN ROOM DUE TO PT IN PRECAUTIONS FOR COVID!
--- NOTE | 2024-04-22 10:23 | CASEMGMT ---
Social Work BIMS (06/05) and PHQ-2 () completed for MDS assessment. Elle Johnson, CONTACT LENS MOLDER GRINDING MACHINE OPERATOR
[2024-04-22] MEDS: Ciprofloxacin 250 MG Tablet PO ×2 (10:28→21:19)
[2024-04-22] MEDS: Memantine Hydrochloride 10 MG Tablet PO (10:28)
[2024-04-22] MEDS: Senna/Docusate Sodium 1 Tablet 2 TABLET PO ×2 (10:28→21:18)
[2024-04-22] MEDS: Gabapentin 100 MG Capsule PO ×2 (10:28→21:17)
[2024-04-22] MEDS: Lisinopril 2.5 MG Tablet PO (10:28)
[2024-04-22] MEDS: Loratadine 10 MG Tablet PO (10:28)
[2024-04-22] MEDS: Cholecalciferol (VIT D3) 25 MCG TABLET (1,000 UNITS) PO (10:29)
[2024-04-22] MEDS: Tolterodine Tartrate 2 MG CAP.SA PO (10:29)
[2024-04-22] MEDS: Ezetimibe 10 MG Tablet PO (10:29)
[2024-04-22] MEDS: amLODIPine 10 MG Tablet PO (10:29)
[2024-04-22] MEDS: Menthol/Lanolin/Calamine/Znox 113 GM Tube 1 APPLIC TOPICAL ×2 (10:29→21:27)
[2024-04-22] MEDS: Omega-3 Acid Ethyl Esters 1 GM Capsule PO (10:29)
[2024-04-22] MEDS: Petrolatum 33% Tube 1 APPLIC TOPICAL ×2 (10:29→21:28)
[2024-04-22] MEDS: Polyethylene Glycol 3350 17 GM PACKET PO (10:29)
[2024-04-22] MEDS: Calcium Carb/Vitamin D 1 TABLET Tablet PO (10:29)
[2024-04-22 10:30] VITALS: BP 132/76; PULSE 76; RESP 16; TEMP 36.8; O2SAT 98
[2024-04-22] MEDS: oxyCODONE 5 MG Tablet 10 MG PO (12:53)
--- NOTE | 2024-04-22 14:35 | NURSING ---
PT WILL NOT STAY IN RECLINER,KEEPS GETTING UP AND STATING BOBBY GOING HOME. TRIED 1 ON 1,ACTIVES,BOOK ETC. NOTHING WORKING. PT STATED I WANT TO CALL MY .DIALED PHONE NUMBER AND PT TALKING TO . PRN ATIVAN GIVEN. NO PAIN DUE TO OXY GIVEN EARLIER,PT STATED NO PAIN. RN AWARE
[2024-04-22] MEDS: Pantoprazole Sodium 20 MG Tablet PO (21:19)
[2024-04-23] MEDS: Enoxaparin 40 MG/0.4 ML Syringe SC (04:59)
[2024-04-23 06:51] LABS: Bedside Glucose 123 mg/dL (74-106)
[2024-04-23] MEDS: LORazepam 1 MG Tablet PO ×3 (09:01→22:03)
[2024-04-23] MEDS: Menthol/Lanolin/Calamine/Znox 113 GM Tube 1 APPLIC TOPICAL ×2 (09:01→22:06)
[2024-04-23] MEDS: Ciprofloxacin 250 MG Tablet PO (09:01)
[2024-04-23] MEDS: Loratadine 10 MG Tablet PO (09:01)
[2024-04-23] MEDS: Tolterodine Tartrate 2 MG CAP.SA PO (09:02)
[2024-04-23] MEDS: Omega-3 Acid Ethyl Esters 1 GM Capsule PO (09:02)
[2024-04-23] MEDS: Petrolatum 33% Tube 1 APPLIC TOPICAL ×2 (09:02→22:07)
[2024-04-23] MEDS: Memantine Hydrochloride 10 MG Tablet PO (09:03)
[2024-04-23] MEDS: Gabapentin 100 MG Capsule PO ×2 (09:03→22:03)
[2024-04-23] MEDS: Polyethylene Glycol 3350 17 GM PACKET PO (09:03)
[2024-04-23] MEDS: Calcium Carb/Vitamin D 1 TABLET Tablet PO (09:04)
[2024-04-23] MEDS: amLODIPine 10 MG Tablet PO (09:04)
[2024-04-23] MEDS: Senna/Docusate Sodium 1 Tablet 2 TABLET PO ×2 (09:05→22:01)
[2024-04-23] MEDS: Cholecalciferol (VIT D3) 25 MCG TABLET (1,000 UNITS) PO (09:06)
[2024-04-23] MEDS: Lisinopril 2.5 MG Tablet PO (09:06)
[2024-04-23] MEDS: Ezetimibe 10 MG Tablet PO (09:07)
[2024-04-23] MEDS: oxyCODONE 5 MG Tablet 10 MG PO ×3 (10:56→22:03)
--- NOTE | 2024-04-23 12:45 | NURSING ---
Patient's called in to report that he tested positive for Covid today and that his daughter's tested positive as well, so they will not be in to visit. Another daughter just got back in town and had not been around family members and will be in to see patient on 04/24.
[2024-04-23 14:20] VITALS: BP 135/70; PULSE 109; RESP 14; TEMP 37.3; O2SAT 90
[2024-04-23 16:12] VITALS: O2SAT 95
--- NOTE | 2024-04-23 16:13 | NURSING ---
Patient VS 135/70 106 14 99.2 95%. Patient denies any symptoms of illness at this time. Remains on Covid precautions.
[2024-04-23] MEDS: Acetaminophen 500 MG Tablet 1000 MG PO (18:08)
--- NOTE | 2024-04-23 19:26 | NURSING ---
Meals and meds administered in room due to Covid isolation.
[2024-04-23] MEDS: Pantoprazole Sodium 20 MG Tablet PO (22:00)
--- NOTE | 2024-04-23 23:21 | NURSING ---
ALL CARE PROVIDED IN ROOM DUE TO ISOLATION PRECAUTIONS. PT IN PRECAUTIONS FOR COVID.
[2024-04-24] MEDS: LORazepam 1 MG Tablet PO ×4 (05:45→21:28)
[2024-04-24] MEDS: oxyCODONE 5 MG Tablet 10 MG PO ×3 (05:46→21:27)
[2024-04-24] MEDS: Enoxaparin 40 MG/0.4 ML Syringe SC (05:46)
[2024-04-24 06:43] LABS: Bedside Glucose 141 mg/dL (74-106)
[2024-04-24] MEDS: Acetaminophen 500 MG Tablet 1000 MG PO (08:00)
[2024-04-24] MEDS: Loratadine 10 MG Tablet PO (09:35)
[2024-04-24] MEDS: Ezetimibe 10 MG Tablet PO (09:36)
[2024-04-24] MEDS: Tolterodine Tartrate 2 MG CAP.SA PO (09:36)
[2024-04-24] MEDS: Senna/Docusate Sodium 1 Tablet 2 TABLET PO ×2 (09:36→21:23)
[2024-04-24] MEDS: Omega-3 Acid Ethyl Esters 1 GM Capsule PO (09:36)
[2024-04-24] MEDS: amLODIPine 10 MG Tablet PO (09:36)
[2024-04-24] MEDS: Cholecalciferol (VIT D3) 25 MCG TABLET (1,000 UNITS) PO (09:36)
[2024-04-24] MEDS: Lisinopril 2.5 MG Tablet PO (09:37)
[2024-04-24] MEDS: Calcium Carb/Vitamin D 1 TABLET Tablet PO (09:37)
[2024-04-24] MEDS: Polyethylene Glycol 3350 17 GM PACKET PO (09:38)
[2024-04-24] MEDS: Memantine Hydrochloride 10 MG Tablet PO (09:38)
[2024-04-24] MEDS: Gabapentin 100 MG Capsule PO ×2 (09:42→21:25)
[2024-04-24] MEDS: Petrolatum 33% Tube 1 APPLIC TOPICAL ×2 (09:43→21:29)
[2024-04-24] MEDS: Menthol/Lanolin/Calamine/Znox 113 GM Tube 1 APPLIC TOPICAL ×2 (09:44→21:30)
[2024-04-24 11:00] VITALS: PULSE 72; RESP 16
[2024-04-24 13:11] VITALS: BP 130/65; PULSE 96; RESP 18; TEMP 36.6; O2SAT 97
--- NOTE | 2024-04-24 18:04 | NURSING ---
All care provided in room d/t Covid isolation
[2024-04-24] MEDS: Pantoprazole Sodium 20 MG Tablet PO (21:22)
--- NOTE | 2024-04-25 01:51 | NURSING ---
ALL CARE PROVIDED IN ROOM DUE TO ISOLATION PRECAUTIONS. PT IN PRECAUTIONS FOR COVID.
[2024-04-25] MEDS: LORazepam 1 MG Tablet PO ×4 (05:02→21:43)
[2024-04-25] MEDS: oxyCODONE 5 MG Tablet 10 MG PO ×2 (05:02→16:18)
[2024-04-25] MEDS: Enoxaparin 40 MG/0.4 ML Syringe SC (05:03)
[2024-04-25 06:18] LABS: Bedside Glucose 127 mg/dL (74-106)
[2024-04-25] MEDS: Omega-3 Acid Ethyl Esters 1 GM Capsule PO (10:24)
[2024-04-25] MEDS: Loratadine 10 MG Tablet PO (10:24)
[2024-04-25] MEDS: Tolterodine Tartrate 2 MG CAP.SA PO (10:24)
[2024-04-25] MEDS: Memantine Hydrochloride 10 MG Tablet PO (10:25)
[2024-04-25] MEDS: Ezetimibe 10 MG Tablet PO (10:25)
[2024-04-25] MEDS: amLODIPine 10 MG Tablet PO (10:25)
[2024-04-25] MEDS: Polyethylene Glycol 3350 17 GM PACKET PO (10:25)
[2024-04-25] MEDS: Lisinopril 2.5 MG Tablet PO (10:25)
[2024-04-25] MEDS: Calcium Carb/Vitamin D 1 TABLET Tablet PO (10:26)
[2024-04-25] MEDS: Senna/Docusate Sodium 1 Tablet 2 TABLET PO ×2 (10:26→21:44)
[2024-04-25] MEDS: Cholecalciferol (VIT D3) 25 MCG TABLET (1,000 UNITS) PO (10:27)
[2024-04-25] MEDS: Gabapentin 100 MG Capsule PO ×2 (10:32→21:43)
[2024-04-25] MEDS: Menthol/Lanolin/Calamine/Znox 113 GM Tube 1 APPLIC TOPICAL ×2 (10:36→21:47)
[2024-04-25] MEDS: Petrolatum 33% Tube 1 APPLIC TOPICAL ×2 (10:36→21:47)
[2024-04-25 10:49] VITALS: BP 104/63; PULSE 94; O2SAT 92
[2024-04-25 14:24] VITALS: BP 128/66; PULSE 81; RESP 20; TEMP 36.7; O2SAT 94
[2024-04-25 15:00] VITALS: PULSE 81; RESP 18; O2SAT 94
--- NOTE | 2024-04-25 15:22 | NURSING ---
HEARD ALARM GOING OFF,RAN TO ROOM AND PT STANDING UP BY RECLINER TRYING TO PICK SOME THING OFF FLOOR WITH OUT WALKER. ASKED PT TO STAND UP AND I WOULD WATER REGULATOR AND VALVE REPAIRER HER SPOON AND PT STARTED FALLING BACKWARDS. CAUGHT PT BY RT ARM AND HAD PT STAND STRAIGHT UP. PT UPSET AND STATED DONT GRAB ME. EXPLAINED TO PT SHE WAS STARTING TO FALL. PT STATED OH I DIDNT KNOW THAT. GOT PT BACK IN RECLINER. ASKED PT IF SHE WOULD LIKE A SNACK AND SHE STATED YES. GAVE COOKIES AND GAVE A PRN ATIVAN. RN AWARE
[2024-04-25 16:00] VITALS: BP 125/59; PULSE 65; RESP 14; TEMP 36.7; O2SAT 97
--- NOTE | 2024-04-25 16:20 | NURSING ---
AID CAME TO THIS NURSE AND STATED PT WAS UP IN ROOM WALKING WITH ALARM GOING OFF AND SEEN PT UNSTABLE WALKING AND HIT HER RT HIP ON BATHROOM DOOR. THIS NURSE ASKED PT IF HER RT HIP HURT ,PT STATED YES. REDNESS TO RT HIP. WILL CONTINUE TO MONITOR AND PRN PAIN MED GIVEN. RN AWARE
[2024-04-25] MEDS: Pantoprazole Sodium 20 MG Tablet PO (21:44)
--- NOTE | 2024-04-26 03:37 | NURSING ---
All care provided in room due to covid isolations as ordered
[2024-04-26] MEDS: Enoxaparin 40 MG/0.4 ML Syringe SC (05:24)
[2024-04-26 06:40] LABS: Bedside Glucose 149 mg/dL (74-106)
[2024-04-26] MEDS: LORazepam 1 MG Tablet PO ×2 (08:08→16:23)
[2024-04-26] MEDS: Loratadine 10 MG Tablet PO (10:50)
[2024-04-26] MEDS: Omega-3 Acid Ethyl Esters 1 GM Capsule PO (10:50)
[2024-04-26] MEDS: Lisinopril 2.5 MG Tablet PO (10:50)
[2024-04-26] MEDS: Gabapentin 100 MG Capsule PO (10:50)
[2024-04-26] MEDS: Calcium Carb/Vitamin D 1 TABLET Tablet PO (10:50)
[2024-04-26] MEDS: Menthol/Lanolin/Calamine/Znox 113 GM Tube 1 APPLIC TOPICAL ×2 (10:50→22:03)
[2024-04-26] MEDS: Memantine Hydrochloride 10 MG Tablet PO (10:50)
[2024-04-26] MEDS: Tolterodine Tartrate 2 MG CAP.SA PO (10:50)
[2024-04-26] MEDS: Cholecalciferol (VIT D3) 25 MCG TABLET (1,000 UNITS) PO (10:50)
[2024-04-26] MEDS: amLODIPine 10 MG Tablet PO (10:50)
[2024-04-26] MEDS: Ezetimibe 10 MG Tablet PO (10:50)
[2024-04-26] MEDS: Senna/Docusate Sodium 1 Tablet 2 TABLET PO (10:50)
[2024-04-26] MEDS: Polyethylene Glycol 3350 17 GM PACKET PO (10:51)
[2024-04-26] MEDS: Petrolatum 33% Tube 1 APPLIC TOPICAL (10:51)
[2024-04-26 11:04] VITALS: BP 121/63; PULSE 85
[2024-04-26 15:37] VITALS: BMI 19.5
[2024-04-26 16:00] VITALS: BP 123/63; PULSE 98; RESP 16; TEMP 36.7; O2SAT 95
--- NOTE | 2024-04-26 16:29 | CASEMGMT ---
Addendum entered by Elle Johnson 04/27/24 14:55: SW phoned to follow up. No answer; left VM. - Received return call from stating family is to meet together this week to discuss, but the goal is for pt to DC home 05/02 when is out of his COVID isolation. IDT agreeable as this worker stressed the safety concerns. agreed. Requested FWW. SW to coordinate at DC. Will await final update from . Original Note: Social Work SW phoned to inquire about his symptoms of COVID. states he sounds worse than he feels. SW offered if /family wants to have pt DC prior to OOI date of 05/03, IDT is agreeable. states his dtr will visit pt this evening, and he will discuss with the children and phone this worker tomorrow to follow up. SW will continue to follow. Elle Johnson, PEACE ESCUDEROW
--- NOTE | 2024-04-26 18:44 | NURSING ---
Pt remained in room this shift and All care provided in pt's room d/t pt in Covid Precautions.
[2024-04-26 22:13] VITALS: PULSE 74; RESP 14; O2SAT 92
[2024-04-27 06:38] LABS: Bedside Glucose 129 mg/dL (74-106)
[2024-04-27] MEDS: Enoxaparin 40 MG/0.4 ML Syringe SC (06:42)
[2024-04-27] MEDS: Tolterodine Tartrate 2 MG CAP.SA PO (09:21)
[2024-04-27] MEDS: Calcium Carb/Vitamin D 1 TABLET Tablet PO (09:21)
[2024-04-27] MEDS: Cholecalciferol (VIT D3) 25 MCG TABLET (1,000 UNITS) PO (09:21)
[2024-04-27] MEDS: Loratadine 10 MG Tablet PO (09:21)
[2024-04-27] MEDS: Memantine Hydrochloride 10 MG Tablet PO (09:22)
[2024-04-27] MEDS: amLODIPine 10 MG Tablet PO (09:22)
[2024-04-27] MEDS: Lisinopril 2.5 MG Tablet PO (09:22)
[2024-04-27] MEDS: Ezetimibe 10 MG Tablet PO (09:22)
[2024-04-27] MEDS: Omega-3 Acid Ethyl Esters 1 GM Capsule PO (09:22)
[2024-04-27] MEDS: Menthol/Lanolin/Calamine/Znox 113 GM Tube 1 APPLIC TOPICAL ×2 (09:23→20:59)
[2024-04-27] MEDS: Gabapentin 100 MG Capsule PO ×2 (09:23→20:55)
[2024-04-27] MEDS: Petrolatum 33% Tube 1 APPLIC TOPICAL ×2 (09:24→20:59)
[2024-04-27] MEDS: oxyCODONE 5 MG Tablet 10 MG PO (11:01)
[2024-04-27] MEDS: LORazepam 1 MG Tablet PO ×2 (14:28→22:25)
--- NOTE | 2024-04-27 14:34 | NURSING ---
PT CONTINUES TO GET UP AND WALKING IN ROOM AFTER NUMEROUS TRIES OF GETTING HER TO STAY IN RECLINER WITH ACTIVATES ETC. ASKED PT IF SHE WAS IN PAIN,PT STATED NO I JUST WANT TO GO HOME. PRN ATIVAN GIVEN LAYED PT DOWN IN BED AND SANCHO/ACTIVITIES CAME IN TO DO PT NAILS. RN AWARE
[2024-04-27 15:32] VITALS: BP 129/69; PULSE 109; RESP 18; TEMP 36.2; O2SAT 96
[2024-04-27] MEDS: Pantoprazole Sodium 20 MG Tablet PO (20:55)
[2024-04-27] MEDS: Senna/Docusate Sodium 1 Tablet 2 TABLET PO (20:55)
--- NOTE | 2024-04-27 23:13 | NURSING ---
All care provided in room due to Covid isolations as ordered
[2024-04-28] MEDS: Enoxaparin 40 MG/0.4 ML Syringe SC (05:47)
[2024-04-28 06:29] LABS: Bedside Glucose 129 mg/dL (74-106)
[2024-04-28] MEDS: Omega-3 Acid Ethyl Esters 1 GM Capsule PO (09:08)
[2024-04-28] MEDS: Loratadine 10 MG Tablet PO (09:08)
[2024-04-28] MEDS: Tolterodine Tartrate 2 MG CAP.SA PO (09:08)
[2024-04-28] MEDS: Memantine Hydrochloride 10 MG Tablet PO (09:09)
[2024-04-28] MEDS: Cholecalciferol (VIT D3) 25 MCG TABLET (1,000 UNITS) PO (09:10)
[2024-04-28] MEDS: Lisinopril 2.5 MG Tablet PO (09:10)
[2024-04-28] MEDS: Calcium Carb/Vitamin D 1 TABLET Tablet PO (09:10)
[2024-04-28] MEDS: amLODIPine 10 MG Tablet PO (09:10)
[2024-04-28] MEDS: Ezetimibe 10 MG Tablet PO (09:10)
[2024-04-28] MEDS: Gabapentin 100 MG Capsule PO ×2 (09:11→22:42)
[2024-04-28] MEDS: Menthol/Lanolin/Calamine/Znox 113 GM Tube 1 APPLIC TOPICAL ×2 (09:11→22:42)
[2024-04-28] MEDS: Petrolatum 33% Tube 1 APPLIC TOPICAL ×2 (09:12→22:53)
[2024-04-28] MEDS: LORazepam 1 MG Tablet PO ×2 (09:13→16:39)
[2024-04-28] MEDS: oxyCODONE 5 MG Tablet 10 MG PO ×2 (09:14→16:38)
[2024-04-28 16:00] VITALS: BP 136/72; PULSE 116; RESP 14; TEMP 37.1; O2SAT 97
[2024-04-28] MEDS: Pantoprazole Sodium 20 MG Tablet PO (22:42)
[2024-04-28] MEDS: Senna/Docusate Sodium 1 Tablet 2 TABLET PO (22:42)
[2024-04-28 23:05] VITALS: PULSE 84; RESP 14; O2SAT 92
[2024-04-29] MEDS: Enoxaparin 40 MG/0.4 ML Syringe SC (04:34)
[2024-04-29] MEDS: oxyCODONE 5 MG Tablet 10 MG PO ×4 (04:35→22:51)
[2024-04-29] MEDS: LORazepam 1 MG Tablet PO ×4 (04:35→22:52)
[2024-04-29 07:24] LABS: Absolute Lymphocyte Count 0.85 X10^3/uL (0.83-4.51); Basophil# 0.02 X10^3/uL; Basophil% 0.4 % (0-1); Eosinophil# 0.13 X10^3/uL; Eosinophils% 2.4 % (0-5); Hematocrit 36.1 % (37-47); Hemoglobin 11.9 g/dL (12.0-15.0); Lymphocyte # 0.85 X10^3/ul (0.83-4.51); Lymphocyte % 15.4 % (19-41); Mean Corpuscular Hgb 30.3 pg (27.0-32.0); Mean Corpuscular Volume 91.9 fL (81-99); Mean Platelet Vol. 10.3 fl (6.2-12.0); Monocyte# 0.47 X10^3/uL; Monocyte% 8.5 % (0-10); NRBC Flagged by Analyzer 0 % (0-5); Neutrophil # 4.01 X10^3/uL (2.7-7.7); Neutrophil % 72.4 % (47-70); Platelet Count 214 K/mm3 (150-450); RBC Distribution Width CV 12.9 % (11.6-14.6); RBC Distribution Width SD 43.4 fl (35.1-43.9); Red Blood Count 3.93 M/mm3 (4.2-5.4); White Blood Count 5.5 K/mm3 (4.4-11.0)
[2024-04-29 07:52] LABS: Anion Gap 4 (5-15); BUN 12 mg/dL (7-18); BUN/Creat Ratio 19.4 RATIO (10-20); Calcium,Total 8.8 mg/dL (8.5-10.1); Chloride 107 mmol/L (98-107); Creatinine, Serum 0.62 mg/dL (0.55-1.02); EST Glomerular Filtration Rate 97 mL/min (>60); Est Glom Filt Rate - Afr Amer 118 mL/min (>60); Estimated Creatinine Clearance 40.15 ml/min; Glucose 119 mg/dL (74-106); Sodium Level 139 mmol/L (136-145)
[2024-04-29] MEDS: Tolterodine Tartrate 2 MG CAP.SA PO (10:56)
[2024-04-29] MEDS: Petrolatum 33% Tube 1 APPLIC TOPICAL ×2 (10:56→22:55)
[2024-04-29] MEDS: Menthol/Lanolin/Calamine/Znox 113 GM Tube 1 APPLIC TOPICAL ×2 (10:56→22:56)
[2024-04-29] MEDS: Loratadine 10 MG Tablet PO (10:56)
[2024-04-29] MEDS: Omega-3 Acid Ethyl Esters 1 GM Capsule PO (10:57)
[2024-04-29] MEDS: Memantine Hydrochloride 10 MG Tablet PO (10:57)
[2024-04-29] MEDS: Lisinopril 2.5 MG Tablet PO (10:58)
[2024-04-29] MEDS: amLODIPine 10 MG Tablet PO (10:58)
[2024-04-29] MEDS: Cholecalciferol (VIT D3) 25 MCG TABLET (1,000 UNITS) PO (10:58)
[2024-04-29] MEDS: Ezetimibe 10 MG Tablet PO (10:58)
[2024-04-29] MEDS: Calcium Carb/Vitamin D 1 TABLET Tablet PO (10:58)
[2024-04-29] MEDS: Gabapentin 100 MG Capsule PO ×2 (11:00→22:50)
--- NOTE | 2024-04-29 14:05 | CASEMGMT ---
Social Work SW received call from stating family agreeable to pt DC home on 05/02. SW offered skilled HHC and agreed, but has no preference. Dtr is visiting shortly and agreed for this worker to provide list of agencies including quality and resource data via [employer], to dtr for selection. SW confirmed coordinating FWW for pt at DC as well. and dtr can transport. SW presented to room and dtr was present. SW provided list of HHC agencies. [facility], [facility] and [facility]. SW updated dtr on FWW delivery on Thursday as well. Dtr appreciative. SW phoned referral to [facility] PT/OT/ST. Plan: DC home with 05/02, [facility] PT/OT/ST PEACE Vargas
--- NOTE | 2024-04-29 15:08 | DS.PCM_ITS ---
Providers Date of Admission: 04/07/24 Primary Care Physician: Dr. Wilfred Prado MD Reason For Visit: INTRACTABLE LOW BACK PAIN WITH BILATERAL Diagnosis Discharge Diagnosis (1) Debility: Status: Acute Code(s): R53.81 - Other malaise (2) Intractable back pain: Status: Acute Code(s): M54.9 - Dorsalgia, unspecified (3) Lumbar disc herniation with radiculopathy: Status: Acute Code(s): M51.16 - Intervertebral disc disorders with radiculopathy, lumbar region (4) Lumbar compression fracture: Status: Acute Code(s): S32.000A - Wedge compression fracture of unspecified lumbar vertebra, initial encounter for closed fracture Qualifiers: Encounter type: initial encounter Lumbar vertebra fracture level: L3 Q ualified Code(s): S32.030A - Wedge compression fracture of third lumbar vertebra, initial encounter for closed fracture (5) Alzheimer disease: Status: Acute Code(s): G30.9 - Alzheimer's disease, unspecified; F02.80 - Dementia in other diseases classified elsewhere, unspecified severity, without behavioral disturbance, psychotic disturbance, mood disturbance, and anxiety (6) Lumbar spinal stenosis: Status: Acute Code(s): M48.061 - Spinal stenosis, lumbar region without neurogenic claudication (7) Hyponatremia: Status: Acute Code(s): E87.1 - Hypo-osmolality and hyponatremia (8) Diabetes mellitus: Status: Acute Code(s): E11.9 - Type 2 diabetes mellitus without complications (9) Essential (primary) hypertension: Status: Acute Code(s): I10 - Essential (primary) hypertension (10) Vitamin D deficiency: Status: Acute Code(s): E55.9 - Vitamin D deficiency, unspecified (11) Hyperlipidemia: Status: Chronic Code(s): E78.5 - Hyperlipidemia, unspecified (12) Neuropathic pain: Status: Acute Code(s): M79.2 - Neuralgia and neuritis, unspecified Plan 83 year old female with below past medical history significant for moderate Alzheimer Disease, hospitalized for intractable low back pain 2/2 lumbar disc herniation with radiculopathy, lumbar spinal stenosis, underwent epidural steroid injection 04/04/[address] Garcia, admitted to TCU with debility, here for rehabilitation, strengthening, prior to discharge home with . * Debility - PT/OT. * Pain - Tylenol 1000mg q6 prn pain (1-3), Tramadol 50mg q6 prn pain (4-5), Oxycodone 5mg q4 prn pain (6-10), Arthritis pain topical tid prn. * Bowel - Miralax 17gm daily, Senna/colace 2 tablets bid, Magnesium citrate 300ml daily prn. * Adult immunization - Administer pneumonia vaccine, covid vaccine, flu vaccine as appropriate. * DVT prophylaxis - Lovenox 40mg sc daily. * Hypertension - Lisinopril 2.5mg daily, Amlodipine 10mg daily. * Calcium deficiency - Calcium D 1 tablet daily. * Vitamin D deficiency - D3 25mcg daily. * Hyperlipidemia - Zetia 10mg daliy, [place] 3 1gm daily. * Neuropathic pain - Gabapentin 100mg tid. * Allergic rhinitis - Loratadine 10mg daily. * Anxiety/restlessness/sleep - Lorazepam 0.5mg q4 prn. * Alzheimer Disease - Memantine 10mg daily. * Skin irritation - Calmoseptine topical bid, Eucering topical bid. * GERD - Pantoprazole 20mg qhs. * Dry eyes - Artificial Tears 1gtt ou q2h prn. Medications at Discharge Home Medications amlodipine 10 mg tablet 10 mg PO DAILY see physic 04/30/17 cholecalciferol (vitamin D3) 25 mcg (1,000 unit) tablet 1,000 unit PO DAILY supplement 11/14/19 flaxseed oil 1,000 mg capsule 1,000 mg PO DAILY supplement 11/14/19 ezetimibe 10 mg tablet (Zetia) 10 mg PO DAILY see physician 08/11/22 calcium carbonate 500 mg-vitamin D3 15 mcg (600 unit) tablet 1 tab PO DAILY supplement 02/10/23 omega 6-toj-bcf-fish oil 300 mg-1,000 mg capsule (Fish Oil) 1 cap PO DAILY supplement 02/10/23 cyclosporine 0.05 % eye drops in a dropperette (Restasis) 1 drp EACH EYE DAILY dry eyes 04/01/24 diclofenac sodium 1 % topical gel (Aleve (diclofenac)) 1 ea topical TID PRN pain 04/01/24 loratadine 10 mg tablet (Claritin) 10 mg PO DAILY allergies 04/01/24 memantine 10 mg tablet 10 mg PO DAILY dementia 04/01/24 omeprazole 20 mg capsule,delayed release 20 mg PO QHS acid reflex 04/01/24 gabapentin 100 mg capsule 100 mg PO TID pain 5 days #15 caps 04/07/24 acetaminophen 500 mg tablet 1,000 mg (2 x 500 mg) PO Q6H PRN PRN Pain Score 1-3 #0 tabs 04/29/24 lisinopril 2.5 mg tablet 2.5 mg PO DAILY 30 days #30 tabs 04/29/24 lorazepam 1 mg tablet 1 mg PO Q4H PRN PRN Anxiety/Restlessness/Sleep 7 days #42 tabs 04/29/24 oxycodone 5 mg tablet 10 mg (2 x 5 mg) PO Q4H PRN PRN Pain Score 6-10 Or Pre Pt/Ot 7 days #84 tabs 04/29/24 sennosides 8.6 mg-docusate sodium 50 mg tablet (Stimulant Laxative Plus) 2 tab PO BID 30 days #120 tabs 04/29/24 tolterodine 2 mg capsule,extended release 24 hr 2 mg PO DAILY 30 days #30 caps 04/29/24 Hospital Course Operations None Procedures None Summary of Care Provided Minutes Spent on Discharge: 35 Hospital Course: 83 year old female with below past medical history significant for moderate Alzheimer Disease, hospitalized for intractable low back pain 2/2 lumbar disc herniation with radiculopathy, lumbar spinal stenosis, underwent epidural steroid injection 04/04/[address] Garcia, admitted to TCU with debility, here for rehabilitation, strengthening, prior to discharge home with . 04/14/2024 RISHABH doppler negative. 04/21/2024 +covid, no treatment as resident asymptomatic. Discharge home with 05/02/2024, [facility] PT/OT/ST. Physical Exam Const alert General Appearance: cooperative HEENT normocephalic Eyes PERRL and EOMs intact bilaterally Neck supple, no JVD and no carotid bruits Resp normal respiratory effort, normal air movement and clear to auscultation bilaterally Cardio regular rate and regular rhythm GI normal to inspection, nondistended, normoactive bowel sounds, non-tender and non-distended Extremity normal capillary refill General Extremity: Negative for edema Skin no rashes or lesions noted General Skin Exam: no breakdown Psych affect normal Appearance: appropriate Weight / BMI Weight Weight: 48.58 kg Body Mass Index (BMI) 19.5 ABG / Lab / Microbiology Data 04/29/24 07:11 04/29/24 07:11 Laboratory: Laboratory Results - last 24 hr 04/29/24 07:11: WBC 5.5, RBC 3.93 L, Hgb 11.9 L, Hct 36.1 L, MCV 91.9, MCH 30.3, MCHC 33.0, RDW Std Deviation 43.4, RDW Coeff of [place] 12.9, Plt Count 214, MPV 10.3, Immature Gran % (Auto) 0.900, Neut % (Auto) 72.4 H, Lymph % (Auto) 15.4 L, [place] % (Auto) 8.5, Eos % (Auto) 2.4, Baso % (Auto) 0.4, Absolute Neuts (auto) 4.0, Absolute Lymphs (auto) 0.85, Nucleated RBC % 0, Sodium 139, Potassium 4.0, Chloride 107, Carbon Dioxide 28.0, Anion Gap 4 L, BUN 12, Creatinine 0.62, Estim Creat Clear Calc 40.15, Est GFR (MDRD) Af Amer 118, Est GFR (MDRD) Non-Af 97, BUN/Creatinine Ratio 19.4, Glucose 119 H, Calcium 8.8 Microbiology: Microbiology 04/21/24 05:00 Nasal Secretion SARS-CoV-2 Antigen (Rapid) - Final SARS-CoV-2 (COVID 19) 04/15/24 15:30 Urine, Catheterized Urine Culture - Final Presumptive E. coli 04/08/24 11:30 Urine, Catheterized Urine Culture - Final Culture exhibits no growth. D/C Instructions Discharge Diet: No restrictions Discharge Activity: Return to Normal Activity, May Shower and Use Walker Weight Bearing Status: Weight bearing as tolerated Call your doctor if you observe: Fever of 101 or Higher, Inability to urinate, Inability to have a bowel movement, Shortness of breath, Dizziness, Fainting spells, Swelling in the ankles, Chest pain and Uncontrolled pain Additional Instructions: Discharge home with 05/02/2024, [facility] PT/OT/ST. Meaningful Use Info Meaningful Use Meaningful Use Diagnoses (Choose all that apply): None applicable Ischemic Stroke Statin Dosing Therapy Reference: STATIN DOSE THERAPY REFERENCE: * Patients > 75 years receive moderate or high dose statin therapy. * Patients 75 years or YOUNGER should receive HIGH intensity statin dose unless contraindicated. You will be required to document reason for non-treatment if statin daily dose does not meet guidelines. HIGH DOSE STATIN THERAPY DAILY Atorvastatin > than or = to 40 mg Rosuvastatin > than or = to 20 mg Amlodipine + Atorvastatin > than or = to 2.5/40 mg Ezetimibe + Simvastatin 10/80 mg Simvastatin 80mg Discharge Plan Admission Admit Date/Time: 04/07/24 17:18 Primary Reason for Your Visit: Debility. Attending Provider: Sumeet Elmore Chi Primary Care Provider: Wilfred Prado Instructions Additional Instructions / Restrictions: Discharge home with 05/02/2024, [facility] PT/OT/ST. Discharge Orders/Prescriptions Prescriptions: New tolterodine 2 mg Capsule,Extended Release 24hr 2 mg PO DAILY 30 Days Qty: 30 0RF sennosides-docusate sodium [Stimulant Laxative Plus] 8.6-50 mg Tablet 2 tab PO BID 30 Days Qty: 120 0RF acetaminophen 500 mg Tablet 1,000 mg PO Q6H PRN PRN (Reason: Pain Score 1-3) Qty: 0 0RF lorazepam 1 mg Tablet 1 mg PO Q4H PRN PRN (Reason: Anxiety/Restlessness/Sleep) 7 Days Qty: 42 0RF lisinopril 2.5 mg Tablet 2.5 mg PO DAILY 30 Days Qty: 30 0RF oxycodone 5 mg Tablet 10 mg PO Q4H PRN PRN (Reason: Pain Score 6-10 Or Pre Pt/Ot) 7 Days Qty: 84 0RF Continued ezetimibe [Zetia] 10 mg tablet 10 mg PO DAILY omega 2-vcp-izy-fish oil [Fish Oil] 300-1,000 mg capsule 1 cap PO DAILY amlodipine 10 MG tablet 10 mg PO DAILY flaxseed oil 1,000 MG capsule 1,000 mg PO DAILY cholecalciferol (vitamin D3) 1,000 UNIT tablet 1,000 unit PO DAILY calcium carbonate-vitamin D3 500 mg-15 mcg (600 unit) tablet 1 tab PO DAILY memantine 10 mg tablet 10 mg PO DAILY omeprazole 20 mg capsule,delayed release(DR/EC) 20 mg PO QHS loratadine [Claritin] 10 mg tablet 10 mg PO DAILY cyclosporine [Restasis] 0.05 % dropperette 1 drp EACH EYE DAILY diclofenac sodium [Aleve (diclofenac)] 1 % gel 1 ea topical TID PRN Patient Comments: 1 application as needed, follow instructions on label. gabapentin 100 mg capsule 100 mg PO TID 5 Days Qty: 15 0RF Discontinued sennosides-docusate sodium [Stimulant Laxative Plus] 8.6-50 mg Tablet 1 tab PO BID Qty: 30 0RF lisinopril 2.5 mg Tablet 2.5 mg PO DAILY Qty: 30 0RF Referrals / Follow Up: Wilfred Prado MD [Primary Care Provider] - Disposition Disposition (needs filled in before D/C Order can be placed): Home Health Service
[2024-04-29 16:00] VITALS: BP 135/72; PULSE 88; RESP 16; TEMP 35.8; O2SAT 97
--- NOTE | 2024-04-29 18:51 | NURSING ---
All medications, meals, and care done in room d/t enhanced droplet Covid precautions.
[2024-04-29] MEDS: Pantoprazole Sodium 20 MG Tablet PO (22:46)
[2024-04-29] MEDS: Senna/Docusate Sodium 1 Tablet 2 TABLET PO (22:47)
[2024-04-30] MEDS: Enoxaparin 40 MG/0.4 ML Syringe SC (06:27)
[2024-04-30 07:03] LABS: Bedside Glucose 130 mg/dL (74-106)
[2024-04-30] MEDS: oxyCODONE 5 MG Tablet 10 MG PO ×2 (10:52→16:40)
[2024-04-30] MEDS: LORazepam 1 MG Tablet PO ×2 (10:52→15:49)
[2024-04-30] MEDS: Menthol/Lanolin/Calamine/Znox 113 GM Tube 1 APPLIC TOPICAL ×2 (10:56→22:28)
[2024-04-30] MEDS: Petrolatum 33% Tube 1 APPLIC TOPICAL ×2 (10:58→22:28)
[2024-04-30] MEDS: Loratadine 10 MG Tablet PO (11:00)
[2024-04-30] MEDS: Tolterodine Tartrate 2 MG CAP.SA PO (11:00)
[2024-04-30] MEDS: Polyethylene Glycol 3350 17 GM PACKET PO (11:00)
[2024-04-30] MEDS: Omega-3 Acid Ethyl Esters 1 GM Capsule PO (11:00)
[2024-04-30] MEDS: Calcium Carb/Vitamin D 1 TABLET Tablet PO (11:01)
[2024-04-30] MEDS: amLODIPine 10 MG Tablet PO (11:01)
[2024-04-30] MEDS: Memantine Hydrochloride 10 MG Tablet PO (11:01)
[2024-04-30] MEDS: Senna/Docusate Sodium 1 Tablet 2 TABLET PO ×2 (11:02→22:27)
[2024-04-30] MEDS: Cholecalciferol (VIT D3) 25 MCG TABLET (1,000 UNITS) PO (11:02)
[2024-04-30] MEDS: Ezetimibe 10 MG Tablet PO (11:03)
[2024-04-30] MEDS: Lisinopril 2.5 MG Tablet PO (11:03)
[2024-04-30] MEDS: Gabapentin 100 MG Capsule PO ×2 (11:07→22:27)
[2024-04-30 17:17] VITALS: BP 112/56; PULSE 94; RESP 17; TEMP 37.1; O2SAT 94
[2024-04-30] MEDS: Pantoprazole Sodium 20 MG Tablet PO (22:27)
[2024-05-01 06:42] LABS: Bedside Glucose 139 mg/dL (74-106)
[2024-05-01] MEDS: Enoxaparin 40 MG/0.4 ML Syringe SC (06:51)
[2024-05-01] MEDS: LORazepam 1 MG Tablet PO ×3 (08:03→22:34)
[2024-05-01] MEDS: oxyCODONE 5 MG Tablet 10 MG PO ×2 (08:04→13:45)
[2024-05-01 10:08] VITALS: BP 101/56; PULSE 68; RESP 16; TEMP 36.9; O2SAT 93
[2024-05-01] MEDS: Menthol/Lanolin/Calamine/Znox 113 GM Tube 1 APPLIC TOPICAL ×2 (10:14→22:31)
[2024-05-01] MEDS: Loratadine 10 MG Tablet PO (10:14)
[2024-05-01] MEDS: Omega-3 Acid Ethyl Esters 1 GM Capsule PO (10:15)
[2024-05-01] MEDS: Petrolatum 33% Tube 1 APPLIC TOPICAL ×2 (10:15→22:33)
[2024-05-01] MEDS: Tolterodine Tartrate 2 MG CAP.SA PO (10:15)
[2024-05-01] MEDS: Memantine Hydrochloride 10 MG Tablet PO (10:15)
[2024-05-01] MEDS: Polyethylene Glycol 3350 17 GM PACKET PO (10:15)
[2024-05-01] MEDS: Cholecalciferol (VIT D3) 25 MCG TABLET (1,000 UNITS) PO (10:16)
[2024-05-01] MEDS: Senna/Docusate Sodium 1 Tablet 2 TABLET PO ×2 (10:16→22:25)
[2024-05-01] MEDS: Lisinopril 2.5 MG Tablet PO (10:16)
[2024-05-01] MEDS: Calcium Carb/Vitamin D 1 TABLET Tablet PO (10:16)
[2024-05-01] MEDS: amLODIPine 10 MG Tablet PO (10:16)
[2024-05-01] MEDS: Ezetimibe 10 MG Tablet PO (10:17)
[2024-05-01] MEDS: Gabapentin 100 MG Capsule PO ×2 (10:20→22:24)
[2024-05-01] MEDS: Pantoprazole Sodium 20 MG Tablet PO (22:25)
[2024-05-02] MEDS: Enoxaparin 40 MG/0.4 ML Syringe SC (04:39)
[2024-05-02] MEDS: LORazepam 1 MG Tablet PO (05:28)
[2024-05-02 06:11] LABS: Bedside Glucose 134 mg/dL (74-106)
[2024-05-02] MEDS: Omega-3 Acid Ethyl Esters 1 GM Capsule PO (08:48)
[2024-05-02] MEDS: Tolterodine Tartrate 2 MG CAP.SA PO (08:48)
[2024-05-02] MEDS: oxyCODONE 5 MG Tablet 10 MG PO (08:48)
[2024-05-02] MEDS: Memantine Hydrochloride 10 MG Tablet PO (08:48)
[2024-05-02] MEDS: Loratadine 10 MG Tablet PO (08:48)
[2024-05-02] MEDS: Lisinopril 2.5 MG Tablet PO (08:49)
[2024-05-02] MEDS: Cholecalciferol (VIT D3) 25 MCG TABLET (1,000 UNITS) PO (08:49)
[2024-05-02] MEDS: amLODIPine 10 MG Tablet PO (08:49)
[2024-05-02] MEDS: Calcium Carb/Vitamin D 1 TABLET Tablet PO (08:49)
[2024-05-02] MEDS: Ezetimibe 10 MG Tablet PO (08:49)
[2024-05-02] MEDS: Gabapentin 100 MG Capsule PO (08:57)
[2024-05-02] MEDS: Menthol/Lanolin/Calamine/Znox 113 GM Tube 1 APPLIC TOPICAL (08:59)
[2024-05-02] MEDS: Petrolatum 33% Tube 1 APPLIC TOPICAL (08:59)
--- NOTE | 2024-05-02 12:01 | NURSING ---
Alarm sounding this AM and when nursing entered room, patient was sitting on floor in front of chair. Patient reports pain in right elbow where there is a new skin tear from fall but denies other pain. She reports she was trying to go to bathroom. VS 97.8 95% 99 132/73 18 and patient is able to stand and walk to bathroom. CDD applied to skin tear. Dr. Elmore made aware of fall with NNO and made aware of fall.
[2024-05-02 12:07] VITALS: BP 132/73; PULSE 99; RESP 18; TEMP 36.6; O2SAT 95
--- NOTE | 2024-05-02 16:56 | CASEMGMT ---
Social Work BIMS (05/05) and PHQ-2 () completed for MDS assessment. PEACE Vargas [employer]
--- NOTE | 2024-05-03 12:11 | MDS.RN ---
Information for the MDS was obtained from review of the clinical record, interview of resident, staff, and direct observation of resident?s care.
== END 2024-05-02 11:45 | disposition home health service (06) | DRG 560 ==
PROVIDERS: Admitting Provider Family Medicine Geriatric Medicine; PCP Family Medicine; Referring Provider Family Medicine Geriatric Medicine; Visit Provider Family Medicine Geriatric Medicine
DX: S32.030D Wedge compression fracture of third lumbar vertebra, subsequent encounter for fracture with routine healing (principal); N39.0 Urinary tract infection, site not specified; I50.32 Chronic diastolic (congestive) heart failure; I11.0 Hypertensive heart disease with heart failure; E11.40 Type 2 diabetes mellitus with diabetic neuropathy, unspecified; E78.5 Hyperlipidemia, unspecified; E55.9 Vitamin D deficiency, unspecified; B96.20 Unspecified Escherichia coli [E. coli] as the cause of diseases classified elsewhere; F02.80 Dementia in other diseases classified elsewhere, unspecified severity, without behavioral disturbance, psychotic disturbance, mood disturbance, and anxiety; G30.9 Alzheimer's disease, unspecified; M51.26 Other intervertebral disc displacement, lumbar region; J30.9 Allergic rhinitis, unspecified; M48.061 Spinal stenosis, lumbar region without neurogenic claudication; K21.9 Gastro-esophageal reflux disease without esophagitis; F41.9 Anxiety disorder, unspecified; M51.16 Intervertebral disc disorders with radiculopathy, lumbar region; Z87.891 Personal history of nicotine dependence; X58.XXXD Exposure to other specified factors, subsequent encounter; Z79.899 Other long term (current) drug therapy; N32.81 Overactive bladder
CPT/HCPCS: 36415; 80048; 81001; 82962; 83735; 85025; 87086; 87088; 87186; 87811; 92507; 92523; 97110; 97116; 97129; 97130; 97162; 97166; 97530; 97535; 97802; A4216

== ENCOUNTER → 2024-04-14 | Outpatient (CLI) | payer MEDICARE, SELFPAY | END | disposition home or self-care (01) | LOC: CVS 08:36 | PROVIDERS: PCP Family Medicine; Referring Provider Family Medicine Geriatric Medicine; Visit Provider Family Medicine Geriatric Medicine | DX: I73.9 Peripheral vascular disease, unspecified (principal) | CPT/HCPCS: 93922 ==

== ENCOUNTER 2024-05-21 11:47 | Emergency (ER) | payer MEDICARE, SELFPAY ==
[2024-05-21 11:48] VITALS: BP 121/70; PULSE 87; RESP 16; TEMP 36.6; O2SAT 97; BMI 19.3
--- NOTE | 2024-05-21 12:25 | RAD_ITS ---
EXAM: XR LUMBOSACRAL SPINE, 2 OR 3 VIEWS CLINICAL INDICATION: Injury/Pain TECHNIQUE: Frontal and lateral views of the lumbar spine and sacrum. COMPARISON: Pelvis radiograph on the same date and lumbar spine radiographs, 03/16/2024. FINDINGS: VERTEBRAE: Progressive height loss of previously demonstrated acute L3 compression fracture, now approximately 50% anteriorly and mid. Apparent retropulsion of the posterior cortex. Multilevel facet arthrosis and endplate osteophytosis. Straightening of expected lumbar lordosis. No spondylolisthesis. DISC SPACES: Multilevel intervertebral disc height loss. VASCULATURE: Atherosclerosis. GASTROINTESTINAL TRACT: Normal as visualized. Included bowel gas pattern is non-obstructive. RAD/Lumbar Spine 2 or 3 Views IMPRESSION: 1. Progressive height loss of previously demonstrated acute L3 compression fracture, now approximately 50% anteriorly and mid. Apparent retropulsion of the posterior cortex. 2. Diffuse degenerative change. Electronically Signed: Shade Foster DO at 13:16 EDT ,
--- NOTE | 2024-05-21 12:26 | RAD_ITS ---
EXAM: XR PELVIS, 1 OR 2 VIEWS CLINICAL INDICATION: Injury/Pain TECHNIQUE: Frontal view of the pelvis. COMPARISON: Lumbar spine radiographs on the same date. FINDINGS: BONES/JOINTS: Degenerative changes in the lower lumbar spine and bilateral SI joints as well as the bilateral hips. No definite acute fracture. No destructive or sclerotic lesions. Note that overlapping bowel shadows may however obscure fine detail. No widening of the pubic symphysis. SOFT TISSUES: No significant abnormality. No soft tissue swelling or gas. RAD/Pelvis 1 or 2 Views IMPRESSION: Degenerative changes in the lower lumbar spine and bilateral SI joints as well as the bilateral hips. No definite acute fracture. Electronically Signed: Shade Foster DO at 13:16 EDT ,
--- NOTE | 2024-05-21 12:26 | ED.VIS.BACK ---
HPI History of Present Illness Chief Complaint: Back Informant: patient and family Onset/Context/Timing Onset: Days Injury: fall (Unknown) Timing: Continuous Quality: Aching Location: Lumbar Associated Symptoms Associated Symptoms: Radiation to Right Leg; Negative for Numbness, Tingling, Radiation to Left Leg, Fever, Abdominal Pain, Dysuria, Unable to Ambulate, Unable to Transfer, Urinary Retention, Urinary Incontinence, Constipation or Fecal Incontinence Narrative Narrative: Patient presents with back pain and right leg pain that has been getting worse over the past few days. Family states that they have saw her sitting on the ground yesterday. Family is unsure if the patient fell. Patient states her pain radiates down her right leg. Patient states her pain is worse with ambulating and with sitting upright. Patient denies any abdominal pain. Patient denies any bowel or bladder changes. Patient denies any saddle anesthesia. Patient has a history of dementia and is a poor informant. [facility] Medical History (Updated 05/21/24 @ 14:[address] Wei Son, DO) Compression fracture Dementia Chronic diastolic (congestive) heart failure Hemorrhoids Type 2 diabetes mellitus Hyperlipidemia Essential (primary) hypertension Cyst of left kidney Pleural effusion on left Pneumonia Secondary pulmonary arterial hypertension Non-rheumatic mitral valve stenosis Mitral valve annular calcification PAUL (acute kidney injury) SIRS (systemic inflammatory response syndrome) (11/18/19) Home Medications ?Medication ?Instructions ?Recorded ?Last Taken ?Type amlodipine 10 mg tablet 10 mg PO DAILY see physic 04/30/17 11/17/19 History cholecalciferol (vitamin D3) 25 1,000 unit PO DAILY supplement 11/14/19 11/17/19 History mcg (1,000 unit) tablet flaxseed oil 1,000 mg capsule 1,000 mg PO DAILY supplement 11/14/19 11/17/19 History ezetimibe 10 mg tablet (Zetia) 10 mg PO DAILY see physician 08/11/22 Unknown History calcium carbonate 500 mg-vitamin 1 tab PO DAILY supplement 02/10/23 Unknown History D3 15 mcg (600 unit) tablet omega 2-phw-gxs-fish oil 300 1 cap PO DAILY supplement 02/10/23 Unknown History mg-1,000 mg capsule (Fish Oil) cyclosporine 0.05 % eye drops in a 1 drp EACH EYE DAILY dry eyes 04/01/24 Unknown History dropperette (Restasis) diclofenac sodium 1 % topical gel 1 ea topical TID PRN pain 04/01/24 Unknown History (Aleve (diclofenac)) loratadine 10 mg tablet (Claritin) 10 mg PO DAILY allergies 04/01/24 Unknown History memantine 10 mg tablet 10 mg PO DAILY dementia 04/01/24 Unknown History omeprazole 20 mg capsule,delayed 20 mg PO QHS acid reflex 04/01/24 Unknown History release gabapentin 100 mg capsule 100 mg PO TID pain 5 days #15 caps 04/07/24 Unknown Rx acetaminophen 500 mg tablet 1,000 mg (2 x 500 mg) PO Q6H PRN 04/29/24 Unknown Rx PRN Pain Score 1-3 #0 tabs lisinopril 2.5 mg tablet 2.5 mg PO DAILY 30 days #30 tabs 04/29/24 Unknown Rx lorazepam 1 mg tablet 1 mg PO Q4H PRN PRN 04/29/24 Unknown Rx Anxiety/Restlessness/Sleep 7 days #42 tabs oxycodone 5 mg tablet 10 mg (2 x 5 mg) PO Q4H PRN PRN 04/29/24 Unknown Rx Pain Score 6-10 Or Pre Pt/Ot 7 days #84 tabs sennosides 8.6 mg-docusate sodium 2 tab PO BID 30 days #120 tabs 04/29/24 Unknown Rx 50 mg tablet (Stimulant Laxative Plus) tolterodine 2 mg capsule,extended 2 mg PO DAILY 30 days #30 caps 04/29/24 Unknown Rx release 24 hr Allergy/AdvReac Type Severity Reaction Status Date / Time No Known Allergies Allergy Verified 05/21/24 11:48 Family History Other Osteoarthritis Surgical History (Updated 05/21/24 @ 14:[address] Wei Son DO) Hx of lumbar discectomy Social History household members: spouse Smoking Status: Former smoker alcohol intake: current alcohol intake frequency: a few times a week Alcohol type: wine substance use type: does not use caffeine: Yes Type: coffee Number of servings: 2 ROS ROS ED Constitutional Constitutional ED: Denies chills or fever(s) Eyes Eyes: Denies blurry vision or change in vision ENT ENT ED: Denies rhinorrhea or sore throat Cardiovascular Cardiovascular: Denies chest pain or palpitations Respiratory/Chest Respiratory/Chest: Denies cough or dyspnea Gastrointestinal Gastrointestinal: Denies nausea or vomiting Genitourinary Genitourinary ED: Denies dysuria or hematuria Musculoskeletal Musculoskeletal: Reports back pain; Denies neck pain Integumentary Denies abscess or rash Neurologic Neurologic: Denies headache(s) or weakness Allergic/Immunologic Allergic/Immunologic ED: Denies mouth swelling or urticaria EXAM Physical Exam Const Vital Signs: 05/21/24 11:48 Temperature 97.8 F Temperature Source Temporal Pulse Rate 87 Respiratory Rate 16 Blood Pressure 121/70 H Blood Pressure Mean 87 Pulse Ox 97 Oxygen Delivery Method Room Air Positive well nourished and well developed General Appearance ED: well developed and NAD HEENT Reports moist mucous membranes Neck supple and no JVD Back/Spine Back/Spine Narrative: There is tenderness over the lower lumbar spine and right lumbar paraspinal muscles. There is no bony crepitance or step-off. Range of motion was limited in all motions of the lumbar spine secondary to pain. Strength is 5/5 bilaterally in lower extremities. There are no sensory deficits noted. Straight leg raises were negative bilaterally. Lumbar Spine / Lower Back: ROM limited and straight leg raise negative bilaterally Extremity normal to inspection Neuro oriented x3 and no sensory deficits noted Sensorium / Orientation: alert Motor Exam: strength 5/5 throughout Psych mental status grossly normal MDM MDM MDM Narrative Medical decision making narrative: Differential diagnosis includes lumbar fracture, pelvic fracture,, and lumbar strain. X-rays of the lumbar spine will be obtained to assess for compression fracture. X-rays of the pelvis will be obtained to assess for pelvic fracture. Radiography Diagnostic Testing: X-ray of the pelvis was obtained. There is 1 view. On my independent interpretation, there is no acute fracture. There are degenerative changes of the hips and sacroiliac joints bilaterally. X-rays of the lumbar spine were obtained. There are 2 views. On my independent interpretation, there is a compression fracture of L3. There is progressive loss of height compared to previous x-ray. There are degenerative changes noted. Radiologist also interpreted the x-rays and agrees. Treatment and Re-Evaluation Narrative: Patient and family were advised of her findings. Patient is following with palliative care. Family states the patient was recently given a prescription for oxycodone. Family states they were instructed to alternate this with Tylenol. Patient was instructed to follow-up with her primary care physician in 5 to 7 days. Family understands and was agreeable with the plan. All questions were answered. Discharge Plan Triage Chief Complaint: Back ED Provider: Wei Son Dx/Rx/DC Orders Clinical Impression: Lumbar compression fracture, Dementia Instructions: ED Back Pain (Acute or Chronic), ED Fracture, Vertebral Compression Prescriptions: No Action ezetimibe [Zetia] 10 mg tablet 10 mg PO DAILY omega 4-wqd-xgu-fish oil [Fish Oil] 300-1,000 mg capsule 1 cap PO DAILY amlodipine 10 MG tablet 10 mg PO DAILY flaxseed oil 1,000 MG capsule 1,000 mg PO DAILY cholecalciferol (vitamin D3) 1,000 UNIT tablet 1,000 unit PO DAILY calcium carbonate-vitamin D3 500 mg-15 mcg (600 unit) tablet 1 tab PO DAILY memantine 10 mg tablet 10 mg PO DAILY omeprazole 20 mg capsule,delayed release(DR/EC) 20 mg PO QHS loratadine [Claritin] 10 mg tablet 10 mg PO DAILY cyclosporine [Restasis] 0.05 % dropperette 1 drp EACH EYE DAILY diclofenac sodium [Aleve (diclofenac)] 1 % gel 1 ea topical TID PRN Patient Comments: 1 application as needed, follow instructions on label. gabapentin 100 mg capsule 100 mg PO TID 5 Days Qty: 15 0RF tolterodine 2 mg Capsule,Extended Release 24hr 2 mg PO DAILY 30 Days Qty: 30 0RF sennosides-docusate sodium [Stimulant Laxative Plus] 8.6-50 mg Tablet 2 tab PO BID 30 Days Qty: 120 0RF acetaminophen 500 mg Tablet 1,000 mg PO Q6H PRN PRN (Reason: Pain Score 1-3) Qty: 0 0RF lorazepam 1 mg Tablet 1 mg PO Q4H PRN PRN (Reason: Anxiety/Restlessness/Sleep) 7 Days Qty: 42 0RF lisinopril 2.5 mg Tablet 2.5 mg PO DAILY 30 Days Qty: 30 0RF oxycodone 5 mg Tablet 10 mg PO Q4H PRN PRN (Reason: Pain Score 6-10 Or Pre Pt/Ot) 7 Days Qty: 84 0RF Primary Care Provider: Wilfred Prado Referrals: Wilfred Prado MD [Primary Care Provider] - 5-7 Days Print Language: Hungarian Disposition Disposition: Home, Self Care
== END 2024-05-21 14:57 | disposition home or self-care (01) ==
PROVIDERS: Emergency Provider Emergency Medicine; PCP Family Medicine; Visit Provider Emergency Medicine
DX: S32.039A Unspecified fracture of third lumbar vertebra, initial encounter for closed fracture (principal); I11.0 Hypertensive heart disease with heart failure; I50.32 Chronic diastolic (congestive) heart failure; F03.90 Unspecified dementia, unspecified severity, without behavioral disturbance, psychotic disturbance, mood disturbance, and anxiety; E11.9 Type 2 diabetes mellitus without complications; Z87.891 Personal history of nicotine dependence; E78.5 Hyperlipidemia, unspecified; Z79.899 Other long term (current) drug therapy
CPT/HCPCS: 72100; 72170; 99282

== ENCOUNTER → 2024-06-08 | Outpatient (CLI) | payer MEDICARE, SELFPAY ==
[2024-06-08 13:05] LABS: Mucous, Urine 0 SEEN /hpf (<or=2+); Red Blood Cells-Urine 0 SEEN /hpf (0-5); Squamous Epithelial Cells - UA 0 SEEN /hpf (5-10); White Blood Cells 0 SEEN /hpf (0-5)
[2024-06-08 13:16] LABS: Color, Urine Yellow (Yellow); Glucose, Dipstick Normal (Normal); Ketone-Dipstick Negative (Negative); Leukocyte Esterase-Dipstick Negative /ul (Negative); Nitrite-Dipstick Negative (Negative); Occult Blood-Urine Negative /ul (Negative); Protein-Dipstick Negative (Negative); Urine Bilirubin Dipstick Negative (Negative); Urine Clarity Clear (Clear); Urine Urobilinogen Normal (Normal); Urine pH 6.5 (5.0 - 8.0)
[2024-06-08 13:23] LABS: Bacteria 1+ /hpf (None Seen)
== END | disposition home or self-care (01) ==
LOC: LAB 13:04
PROVIDERS: PCP Family Medicine; Visit Provider Family Medicine
DX: N39.0 Urinary tract infection, site not specified (principal)
CPT/HCPCS: 81001; 87086; 87088